=== PATIENT | male | born 1965 | race Caucasian/White ===

== ENCOUNTER 2020-10-16 11:51 | Outpatient (CLI) | payer MEDICARE, MEDICAID, SELFPAY ==
--- NOTE | 2020-10-16 12:12 | ECHO_ITS ---
Patient Info Name: Cornelio Pedroza Age: 55 years : 1965 Gender: Male Ht: 73 in Wt: 267 lbs BSA: 2.54 m2 HR: 81 bpm BP: 144 / 96 mmHg Technical Quality: Good Exam Date: 10/16/2020 12:25 PM Exam Location: [facility] Pulmonary Patient Status: Outpatient Admit Date: 10/16/2020 Staff Ordering Physician: Carlitos Joseph DO Group Home Supervisor: Bree Yates RDCS Attending Provider: Carlitos Joseph DO Referring Physician: Jake CALDERON; Exam Type: CA echo doppler color flow Study Info Indications - MALCOLM SANCHEZ Complete two-dimensional, color flow and Doppler transthoracic echocardiogram is performed. Summary 1. Complete two-dimensional, color flow and Doppler transthoracic echocardiogram is performed. 2. Left ventricular chamber dimension is normal. 3. Left ventricular systolic function is normal, estimated at 60-65%. 4. There is mildly increased left ventricular wall thickness. 5. The left ventricular diastolic function is normal. 6. E/e' 8 is minimally elevated. 7. Left atrial chamber dimension is mildly enlarged. 8. There is mild aortic valve sclerosis. 9. The mitral valve has mildly calcified annulus. 10. There is trace mitral valve regurgitation. 11. No pulmonary hypertension, estimated pulmonary arterial systolic pressure is 26 mmHg. Left Ventricle E/e' 8 is minimally elevated. Left ventricular chamber dimension is normal. Left ventricular systolic function is normal, estimated at 60-65%. There is mildly increased left ventricular wall thickness. The left ventricular diastolic function is normal. Right Ventricle Right ventricular chamber dimension is normal. Right ventricular systolic function is normal. Left Atria Left atrial chamber dimension is mildly enlarged. Right Atria Right atrial chamber dimension is normal. Aortic Valve The aortic valve is trileaflet. There is mild aortic valve sclerosis. There is no aortic valve stenosis. There is no aortic valve regurgitation. Pulmonic Valve There is no pulmonic regurgitation. Mitral Valve The mitral valve has mildly calcified annulus. There is no mitral valve stenosis. There is trace mitral valve regurgitation. Tricuspid Valve There is no tricuspid valve regurgitation. No pulmonary hypertension, estimated pulmonary arterial systolic pressure is 26 mmHg. Pericardium/Pleural There is no pericardial effusion. Inferior Vena Cava Normal inferior vena cava with >50% collapse upon inspiration consistent with normal right atrial pressure, 5 mmHg. Aorta The aortic root size at the sinus of Valsalva is normal. Left Ventricular Outflow Tract Name Value Normal LVOT 2D LVOT Diameter 2.1 cm LVOT Doppler LVOT Peak Gradient 5 mmHg LVOT Mean Gradient 3 mmHg LVOT VTI 25 cm LVOT VTI/AV VTI Ratio 0.7 LVOT Stroke Volume 85 ml LVOT CO 16.8 l/min LVOT CI 6.6 l/min/m2 Pulmonic Valve
== END 2020-10-16 11:52 | disposition home or self-care (01) ==
PROVIDERS: PCP Family Medicine; Visit Provider Internal Medicine Cardiovascular Disease
DX: R06.00 Dyspnea, unspecified (principal); I51.7 Cardiomegaly
CPT/HCPCS: 93306

== ENCOUNTER 2020-10-20 08:20 | Inpatient (IN) | payer MEDICARE, MEDICAID, SELFPAY ==
[2020-10-20] VITALS (21 sets, daily range): BP systolic 129–168; BP diastolic 68–103; PULSE 72–97; RESP 10–27; TEMP 36.3–36.6; O2SAT 94–100; BMI 33.5
--- NOTE | ~2020-10-20 | CT_ITS ---
EXAMINATION: CTA chest PE protocol DATE: 10/20/2020 09:44 INDICATION: Chest pain TECHNIQUE: Computed tomography angiography (CTA) of the chest was performed with 100 mL Omnipaque-350 intravenous contrast timed to evaluate the pulmonary arteries. Coronal maximum intensity projection 3D-reconstructions were created by the technologist. The dose-length product (DLP) was 790.86 mGy-cm. Automated exposure control and iterative reconstruction technique were employed. COMPARISON: None. FINDINGS: The pulmonary arteries are well-opacified. No pulmonary embolism is identified. There is mi ld atelectasis in the lower lobes. The heart size is normal. Calcified coronary artery atherosclerosi s is noted. There is no pleural effusion or pneumothorax. A 1.4 cm area of fluid attenuation in the p osterior subcutaneous tissues of the left upper back has the appearance of a sebaceous cyst. There is a small sliding hiatal hernia. A moderate volume of ascites is noted in the visualized upper abdomen . Severe lower cervical and thoracic spondylosis is noted. There are partially imaged changes of post erior thoracolumbar fusion. IMPRESSION: 1. No pulmonary embolism identified. 2. Mild dependent atelectasis. 3. Moderate volume of ascites in the visualized upper abdomen. Reviewed, dictated and finalized at location A. E GROWER
--- NOTE | ~2020-10-20 | XR_ITS ---
EXAMINATION: XR chest 2V DATE: 10/20/2020 08:58 INDICATION: Chest pain and shortness of breath TECHNIQUE: Frontal and lateral views of the chest are obtained COMPARISON: None available FINDINGS: There are minimal airspace opacities of the lung bases. There is no pleural effusion or pne umothorax. The cardiomediastinal silhouette is normal. There is severe thoracic spondylosis. There ar e partially imaged changes of posterior thoracolumbar fusion. IMPRESSION: 1. Minimal bibasilar airspace opacity, consistent with atelectasis versus pneumonia. Reviewed, dictated and finalized at location A. N [employer] IMPRESSION: 1. Minimal bibasilar airspace opacity, consistent with atelectasis versus pneum onia.
--- NOTE | ~2020-10-20 | US_ITS ---
EXAMINATION: US paracentesis abd w/image DATE: 10/20/2020 12:10 INDICATION: Ascites. TECHNIQUE: The procedure and its risks, benefits, and alternatives were discussed with the patient. P otential risks discussed included bleeding and infection. The skin was prepped and draped in sterile fashion. 1% lidocaine was used for local anesthesia. Under ultrasound guidance, a 5 Fr catheter with trochar was advanced into the ascites in the right lower quadrant. Fluid was aspirated. The catheter was removed, and a dressing was applied. There were no immediate complications. FINDINGS: Ultrasound images demonstrate ascites and the catheter within the fluid. Liver surface nodularity is seen, consistent with cirrhosis. IMPRESSION: 1. Successful ultrasound-guided paracentesis yielding 4575 mL of dark yellow fluid. 2. Cirrhosis of the liver. Reviewed, dictated and finalized at location A. RITY EXPERT IMPRESSION: 1. Successful ultrasound-guided paracentesis yielding 4575 mL of dark yellow f luid. 2. Cirrhosis of the liver.
--- NOTE | ~2020-10-20 | US_ITS ---
EXAMINATION: US abdomen complete DATE: 10/21/2020 08:58 INDICATION: Cirrhosis TECHNIQUE: Multiple grayscale and Doppler ultrasound images of the abdomen were obtained. COMPARISON: CT, 10/20/2020 FINDINGS: Bowel gas obscures visualization of the pancreas. The visualized portions of the pancreas a re unremarkable. The liver demonstrates a coarsened echotexture. There is nodularity of the liver rafael face. A small volume of ascites is present. Normal hepatopetal flow in the main portal vein. The gall bladder is normal with no wall thickening or stones. The normal common bile duct measures 6 mm. There was no sonographic Newell sign. The visualized portions of the aorta and inferior vena cava are norm al. The right kidney measures 10.5 x 5.9 x 5.6 cm. The left kidney measures 11.4 x 5.8 x 6.6 cm. The kidn eys demonstrate normal parenchymal echogenicity. There is no hydronephrosis. The mildly enlarged sple en measures 14.3 cm. IMPRESSION: 1. Cirrhosis with ascites and mild splenomegaly. Reviewed, dictated and finalized at location A. RUCTIONAL COORDINATOR
--- NOTE | 2020-10-20 08:25 | ECG_ITS ---
Measurements Intervals [place] Rate: 95 P: 39 VA: 157 QRS: -52 QRSD: 100 T: 9 QT: 344 QTc: 433 Interpretive Statements SINUS RHYTHM INCOMPLETE RIGHT BUNDLE BRANCH BLOCK LEFT ANTERIOR FASCICULAR BLOCK BORDERLINE T WAVE ABNORMALITY- INFERIOR LEADS ABNORMAL ECG Electronically Signed On 10-20-2020 8:37:59 [employer]LE E[employer] CONSULTANT by Carlitos Joseph D.O.
[2020-10-20] MEDS: ASPIRIN 81 MG CHEWABLE TABLET 324 MG PO (08:37)
[2020-10-20 08:46] LABS: Basophils Absolute Auto 0.1 K/mm3 (0.0-0.1); Basophils Percent Auto 1.3 % (0.2-1.2); Eosinophils Absolute Auto 0.2 K/mm3 (0-0.3); Hematocrit 40.7 % (42.0-52.0); Hemoglobin 14.3 g/dL (14.0-18.0); Immature Granulocyte Absolute 0.02 K/mm3 (0.00-0.031); Immature Granulocyte Percent A 0.3 % (0-0.5); Immature Platelet Fraction Pct 5.8 % (0.9-11.2); Lymphocytes Absolute Auto 2.25 K/mm3 (0.9-3.2); Lymphocytes Percent Auto 30.3 % (18.3-44.2); Mean Corpuscular HGB Conc 35.1 g/dl (32-36); Mean Corpuscular Volume 99.8 fl (80-100); Mean Platelet Volume 11.3 fl (7.4-10.4); Monocytes Absolute Auto 1.1 K/mm3 (0.1-0.6); Monocytes Percent Auto 14.4 % (2.6-8.5); Neutrophils Absolute Auto 3.8 K/mm3 (1.3-6.7); Neutrophils Percent Auto 50.7 % (45.5-73.1); Platelet Count Result 104 k/mm3 (150-375); Red Blood Count 4.08 M/mm3 (4.6-6.20); Red Cell Distribution Width 14.9 % (11.5-14.5); White Blood Count 7.4 K/mm3 (4.5-10.0)
--- NOTE | 2020-10-20 08:47 | ED.GENADULT ---
HPI - General Adult General Chief complaint: Chest Pain Stated complaint: SOB, CP Time Seen by Provider: 10/20/20 08:29 Source: patient History of Present Illness HPI narrative: Patient is a 55 y/o male complaining of sharp mid sternal chest pain since 2:00 AM this morning. He rates his pain as more than 10/10. There is no alleviating or exacerbating factor. He has some SOB and cough. He denies any fever. He has been having dark discoloration and swelling of of lower legs for over a month. He also gained 27 lbs over last month. Related Data Home Medications Medication Instructions Recorded Confirmed hydrocodone 5 mg-acetaminophen 325 1 tablet PO Q6H PRN 08/26/20 10/20/20 mg tablet lisinopril 20 mg tablet 20 mg PO DAILY 08/26/20 10/20/20 alprazolam [Xanax] 0.5 mg PO TID PRN 10/20/20 10/20/20 gabapentin 300 mg PO BID 10/20/20 10/20/20 methylprednisolone 4 mg PO DAILY 10/20/20 10/20/20 Allergies Allergy/AdvReac Type Severity Reaction Status Date / Time No Known Allergies Allergy Verified 10/13/20 09:07 Review of Systems Constitutional: Constitutional: Denies chills, Denies fever(s), Denies headache(s), Denies weakness and Reports other (weight gain) Eyes: Eyes: Denies blurry vision ENT: Denies headache(s) and Denies neck pain Cardiovascular: Cardiovascular: Reports chest pain and Reports dyspnea Respiratory: Respiratory: Denies cough and Reports dyspnea Gastrointestinal: Gastrointestinal: Denies abdominal pain, Denies diarrhea, Denies nausea and Denies vomiting Genitourinary: Genitourinary: Denies hematuria and Denies dysuria Musculoskeletal: Musculoskeletal: Denies back pain and Denies neck pain Comments: leg swelling Integumentary/Breasts: Skin/Breast: Reports change in pigmentation (dark discoloration of lower legs) Neurologic: Denies headache(s) and Denies weakness [facility] Past Medical History Medical History (Updated 10/20/20 @ 13:37 by Kelley Infante MD) Anxiety Arthritis Cirrhosis of liver Dyslipidemia Generalized headaches Hepatitis Hypertension Obstructive sleep apnea Surgical History Surgical History (Updated 10/20/20 @ 13:24 by Aracelis Hairston PA-C) History of back surgery History of cardiac catheterization History of epidermal inclusion cyst excision Right tragus. History of surgery on wrist ORIF wrist fracture with hardware. Family History Family History Father Hypertension Lung cancer Mother Hypertension Kidney disease Breast cancer Social History Social History (Updated 10/20/20 @ 13:24 by Aracelis Hairston PA-C) Social History: Surrogate decision maker: Charis Zepeda, significant other. Code status: Full code. Years smoked: 35 Smoking status: Current every day smoker Tobacco type: cigarettes Gender identity (if verbalized by the patient): Male Spiritual care concerns: No Exam Const: General: no acute distress and well developed Orientation/consciousness: oriented to person, oriented to place, oriented to time and patient oriented x3 HENMT: Head: normocephalic Ears: external ears normal General nose exam: Normal external nose present Eyes: General: appearance normal, both eyes and all related structures Conjunctivae: conjunctivae normal Neck: Neck: normal visual inspection and full ROM Chest: Chest palpation & inspection: normal inspection of the chest and no tenderness Resp: Effort & Inspection: normal respiratory effort Auscultation: clear to auscultation bilaterally Cardio: Rate: regular rate Rhythm: regular rhythm GI: Inspection: distended GI Palp: No abdominal tenderness and Yes Firmness to palpation present (GI) Skin: General skin exam: normal color, turgor normal and other (dark discoloration of lower legs consistent with venous stasis) Neuro: General: oriented to person, oriented to place, oriented to time and patient oriented x3 Cognition (Neuro):
[2020-10-20 08:54] LABS: INR 1.7; Prothrombin Time 20.7 Seconds (11.1-14.7)
[2020-10-20 08:55] LABS: Alanine Aminotransferase 46 U/L (4-50); Albumin Level 3.2 g/dL (3.5-5.1); Alkaline Phosphatase 234 U/L (38-126); Anion Gap 5 mmol/L (8-16); Aspartate Amino Transferase 162 U/L (17-59); Bilirubin,Total 8.7 mg/dL (0.2-1.3); Blood Urea Nitrogen 12 mg/dL (9-20); Calcium 8.3 mg/dL (8.4-10.2); Carbon Dioxide 27 mmol/L (22-30); Chloride 104 mmol/L (98-107); Estimated Glomerular Filt Rate > 60; Glucose 129 mg/dL (75-110); Partial Thromboplastin Time 31.9 SECONDS (22.3-36.8); Potassium 4.1 mmol/L (3.4-5.0); Sodium 136 mmol/L (137-145)
[2020-10-20 09:07] LABS: Troponin I < 0.012 ng/mL (0.000-0.034)
[2020-10-20 09:17] LABS: D Dimer 6.05 ug/mL (<0.48)
--- NOTE | 2020-10-20 10:42 | PC.NURSE ---
TED Sullivan out of room at this time after discussing ama with pt, pt still states that he is feeling better and wants to leave.
[2020-10-20 11:39] LABS: Hepatitis B Surface Antigen Negative (Negative)
[2020-10-20 11:43] LABS: Troponin I < 0.012 ng/mL (0.000-0.034)
[2020-10-20 11:45] LABS: HAV RESULT Negative (Negative); Hepatitis B Core IgM Result Negative (Negative)
[2020-10-20 11:58] LABS: Hepatitis C Virus Antibody Reactive (Negative)
--- NOTE | 2020-10-20 12:28 | ADMGEN ---
This patient, Cornelio Pedroza, was admitted to IMU Room 201-01 at 1210. Patient/family oriented to hospital policies and general routines including ID bracelet, bed and alarms, visiting hours, pain management, procedures, bathroom and other care routines, personal items, smoking policy, room service/diet, and visiting hours. Information on how to activate the Rapid Response Team has been discussed. Patient/Family are encouraged to report perceived risks to care and to ask questions if they do not understand what they are told or what they should do.
[2020-10-20 12:54] LABS: Appearance Peritoneal Fluid Clear (Clear); Color Peritoneal Fluid Yellow (Colorless); Nucleated Cells Peritoneal Flu 157 /uL (0-500); RBC Peritoneal Fluid 157 /uL (0-100000); Source Peritoneal Fluid Peritoneal Fluid
[2020-10-20 12:58] LABS: Lymphocytes Peritoneal Fluid 45 %; Macrophages Peritoneal Fluid 1 %; Mesothelial Cells Peritoneal Fluid 30 %; Monocytes Peritoneal Fluid 4 %; Neutrophils Peritoneal Fluid 20 % (0-25)
--- NOTE | 2020-10-20 13:30 | PM.IMHP ---
H&P: HPI History of Present Illness Date/Time: 10/20/20 13:30 Chief Complaint: Chest pain and shortness of breath. Narrative: This is a 55-year-old male smoker with daily alcohol use, recent hepatitis C diagnosis, hypertension, dyslipidemia, and sleep apnea who presented to the emergency department earlier today via EMS from home for evaluation of chest pain and shortness of breath. Over the past 1 month patient has gained approximately 27 pounds and reports progressive shortness of breath in the same amount of time. He decided to come in today for evaluation after he developed sudden onset of midsternal chest pain at approximately 02:00. The pain is described as sharp and shooting in nature and was self-limiting. In the emergency department he was found to have a large volume of ascites and is status post paracentesis which yielded nearly 5 liters of fluid. After the fluid resume moved he began to feel as though his work of breathing was much improved and he has not had any recurrence of the discomfort that he had this morning. He denies current chest pain, shortness of breath, orthopnea, PND, nausea, vomiting, and sweats. Review of Systems Review of Systems: Narrative: Twelve systems were reviewed with pertinent positives and negatives as per HPI. No fever, chills, or sweats. No recent cold or flu symptoms. He has had a mild cough, nonproductive. No exposure to those positive for COVID-19 to his knowledge. No history of congestive heart failure cirrhosis to his knowledge. Was recently diagnosed with hepatitis C as detailed above and was started on Lasix and methylprednisolone. No plans of yet been made with regards to treatment. He has had lower extremity edema over the last 1 month which he attributes to his weight gain. The patient began drinking about 4 cocktails a night since his father months ago. No history of alcohol withdrawal signs or symptoms. Except as documented, all other systems were reviewed and are negative. [facility] Past Medical History Medical History (Updated 10/20/20 @ 21:09 by Aracelis Hairston PA-C) Alcohol abuse Anxiety Arthritis Cirrhosis of liver Dyslipidemia Hepatitis C Hypertension Nicotine dependence Obstructive sleep apnea Surgical History Surgical History (Updated 10/20/20 @ 21:03 by Aracelis Hairston PA-C) History of cardiac catheterization History of epidermal inclusion cyst excision Right tragus. History of lumbar fusion History of surgery on wrist ORIF wrist fracture with hardware. Family History Family History Father Hypertension Lung cancer Mother Hypertension Kidney disease Breast cancer Social History Social History (Updated 10/20/20 @ 21:04 by Aracelis Hairston PA-C) Social History: Surrogate decision maker: Charis Heltonightly, significant other. Code status: Full code. Years smoked: 35 Smoking status: Current every day smoker Tobacco type: cigarettes Additional smoking assessment comments: Up to 1 pack of cigarettes per day, now smoking 4 to 5 a day. Alcohol intake: current Alcohol use details: Patient drinks for vodka cocktails a day. Substance use type: marijuana Other substance usage details: Occasional marijuana use. Additional living arrangements comments: The patient lives with his significant other, Charis. 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 Gender identity (if verbalized by the patient): Male Spiritual care concerns: No Meds Home Medications and Allergies Home Medications Medication Instructions Recorded Confirmed Type hydrocodone 5 mg-acetaminophen 325 1 tablet PO Q6H PRN 08/26/20 10/20/20 History mg tablet lisinopril 20 mg tablet 20 mg PO DAILY 08/26/20 10/20/20 History furosemide 40 mg tablet 40 mg PO QAM #30 tablet 09/22/20 10/20/20 Rx alprazolam [Xanax] 0.5 mg PO TID PRN 10/20/20 10/20/20 History shalini
[2020-10-20 15:14] LABS: Troponin I < 0.012 ng/mL (0.000-0.034)
--- NOTE | 2020-10-20 16:08 | WPDGICN ---
Assessment and Plan Assessment and plan (1) Cirrhosis of liver with ascites: Qualifiers: Hepatic cirrhosis type: unspecified hepatic cirrhosis Qualified Code(s): K74.60 - Unspecified cirrhosis of liver; R18.8 - Other ascites Code(s): K74.60 - Unspecified cirrhosis of liver; R18.8 - Other ascites Status: Acute Assessment and Plan: new diagnosis of cirrhosis with ascites however just recently was told that has hepatitis C also has been drinking alcohol which can be a contributing factor, he should no drink anymore complete work up for other chronic liver conditions will start on lasix and aldactone, also will need 2 g na diet with credit authorizer education, then follow-up either with me or probation counselor, will need ultrasound liver every 6 months for HCC surveillance (2) Hepatitis C: Qualifiers: Hepatic coma status: without hepatic coma Viral hepatitis chronicity: unspecified Qualified Code(s): B19.20 - Unspecified viral hepatitis C without hepatic coma Code(s): B19.20 - Unspecified viral hepatitis C without hepatic coma Status: Acute Assessment and Plan: we can talk as outpatient for possible treatments, hbv negative (3) Alcohol abuse: Code(s): F10.10 - Alcohol abuse, uncomplicated Status: Acute Assessment and Plan: he is willing to quit (4) Edema of both legs: Code(s): R60.0 - Localized edema Status: Acute (5) Tobacco abuse: Code(s): Z72.0 - Tobacco use Status: Acute Assessment and Plan: quit smoking (6) FOWLER (dyspnea on exertion): Code(s): R06.00 - Dyspnea, unspecified Status: Acute (7) Thrombocytopenia: Code(s): D69.6 - Thrombocytopenia, unspecified Status: Acute Assessment and Plan: from liver disease (8) Non-cardiac chest pain: Code(s): R07.89 - Other chest pain Status: Acute Assessment and Plan: will also do EGD tomorrow, assess if pud but also for varices, phg GI Consult Note Consult date/time: 10/20/20 16:08 Reason for consult: new diagnosis of cirrhosis with ascites and HCV HPI: Cornelio Pedroza is a 55 year old male with hypertension, dyslipidemia, who was told just couple weeks ago that had elevated liver enzymes with hepatitis C (he says that went to see a doctor in [facility] just few weeks ago because worsening leg edema and increased abdominal girth), blood work was obtained and he was told that has HCV. He also last few months has been drinking more than usual, 3-5 shots vodka every other day, considers to be alcoholic. Denies ivda, he has tattoos, says that only once snorted cocaine in high school. He came to hospital after new onset of epigastric/chest pain with worsening shortness of breath over last 1 week, also had 27 pound weight gain over the last month or so. ER evaluation showed elevated liver enzymes, bili 8, elevated D-dimer therefore CTA chest obtained and reviewed, No pulmonary embolism identified, mild dependent atelectasis, moderate volume of ascites in the visualized upper abdomen. He just underwent paracentesis ~ 4.5 L, no evidence of SBP. Had colonoscopy about 1 year ago, never had EGD. Review of Systems Constitutional: Constitutional: Denies chills Eyes: Eyes: Reports no additional eye complaints ENT: Reports system reviewed and no additional complaints, except as documented Cardiovascular: Cardiovascular: Reports chest pain Respiratory: Respiratory: Reports dyspnea on exertion Gastrointestinal: Gastrointestinal: Denies nausea Genitourinary: Genitourinary: Denies dysuria Musculoskeletal: Musculoskeletal: Denies neck pain Integumentary/Breasts: Skin/Breast: Denies dry skin Neurologic: Denies headache(s) Psychiatric: Psychiatric: Denies behavioral changes [facility] Past Medical History Medical History (Updated 10/20/20 @ 16:14 by Calvin Norton MD) Alcohol abuse Anxiety Arthritis Cirrhosis of liver Dysli
[2020-10-21] VITALS (13 sets, daily range): BP systolic 121–159; BP diastolic 61–101; PULSE 71–108; RESP 14–22; TEMP 36.1–36.7; O2SAT 97–100
[2020-10-21] MEDS: HYDROcodone/acetaminophen (*CRX) 5-325 MG TABLET 1 TAB PO ×3 (01:51→20:12)
[2020-10-21] MEDS: ALPRAZolam (*CRX) 0.5 MG TABLET PO ×2 (01:51→21:07)
[2020-10-21] MEDS: SPIRONOLACTONE 50 MG TABLET 100 MG PO (09:24)
[2020-10-21] MEDS: FUROSEMIDE 40 MG TABLET PO (09:25)
[2020-10-21] MEDS: LACTATED RINGERS 1,000 ML 150 ML IV CONT (10:06)
--- NOTE | 2020-10-21 10:39 | WPDANESEPPF ---
Anes - Initial Pre Proc Eval Procedure: Operation Date: 10/21/20 11:15 Proposed Procedures p Esophagogastroduodenoscopy - Calvin Norton MD Date/Time: 10/21/20 10:39 Surgeon: Artem Lovell MD Pre Op Diagnosis: chest pain/ascites Patient Data Age: 55 Gender: M Height: 6 ft 1 in Weight: 107.5 kg Last Vital Signs Temp 98.0 F 10/21/20 10:11 Pulse 80 10/21/20 10:11 Resp 18 10/21/20 10:11 BP 149/94 H 10/21/20 10:11 Pulse Ox 97 10/21/20 10:14 Allergies Allergy/AdvReac Type Severity Reaction Status Date / Time No Known Allergies Allergy Verified 10/21/20 10:06 Home Medications Medication Instructions Recorded Confirmed Type hydrocodone 5 mg-acetaminophen 325 1 tablet PO Q6H PRN 08/26/20 10/20/20 History mg tablet lisinopril 20 mg tablet 20 mg PO DAILY 08/26/20 10/20/20 History furosemide 40 mg tablet 40 mg PO QAM #30 tablet 09/22/20 10/20/20 Rx alprazolam [Xanax] 0.5 mg PO TID PRN 10/20/20 10/20/20 History gabapentin 300 mg PO BID 10/20/20 10/20/20 History methylprednisolone 4 mg PO DAILY 10/20/20 10/20/20 History Laboratory Tests 10/20/20 10/20/20 10/20/20 08:38 08:38 11:14 Ferritin Troponin I < 0.012 ng/mL ng/mL (0.000-0.034) Alpha-1-AT Phenotype Ceruloplasmin Peritoneal Source Peritoneal Color Peritoneal Appearance Peritoneal RBC Periton Nuc Cells Periton Neutrophils Periton Lymphocytes Peritoneal Monocytes Periton Mesothelial Periton Macrophages Peritoneal Tot Protein Peritoneal Albumin NIKA Screen Mitochondria M2 IgG Ab Hepatitis A IgM Ab Negative (Negative) Hep Bs Antigen Negative (Negative) Hep B Core IgM Ab Negative (Negative) Hepatitis C Ab Screen Reactive (Negative) HCV RNA (PCR) IUs/ml Pending HCV RNA PCR log IUs/ml Pending 10/20/20 10/20/20 10/20/20 11:39 11:39 14:44 Ferritin Troponin I < 0.012 ng/mL ng/mL (0.000-0.034) Alpha-1-AT Phenotype Ceruloplasmin Peritoneal Source Peritoneal fluid Peritoneal Color Yellow (Colorless) Peritoneal Appearance Clear (Clear) Peritoneal RBC 157 /uL /uL ([id number]) Periton Nuc Cells 157 /uL /uL (0-500) Periton Neutrophils 20 % % (0-25) Periton Lymphocytes 45 % % Peritoneal Monocytes 4 % % Periton Mesothelial 30 % % Periton Macrophages 1 % % Peritoneal Tot Protein Pending Peritoneal Albumin Pending NIKA Screen Mitochondria M2 IgG Ab Hepatitis A IgM Ab Hep Bs Antigen Hep B Core IgM Ab Hepatitis C Ab Screen HCV RNA (PCR) IUs/ml HCV RNA PCR log IUs/ml 10/21/20 10/21/20 10/21/20 04:12 04:12 04:12 Ferritin 539.00 ng/mL H ng/mL (11.1-264) Troponin I Alpha-1-AT Phenotype Pending Ceruloplasmin Pending Peritoneal Source Peritoneal Color Peritoneal Appearance Peritoneal RBC Periton Nuc Cells Periton Neutrophils Periton Lymphocytes Peritoneal Monocytes Periton Mesothelial Periton Macrophages Peritoneal Tot Protein Peritoneal Albumin NIKA Screen Pending Mitochondria M2 IgG Ab Hepatitis A IgM Ab Hep Bs Antigen Hep B Core IgM Ab Hepatitis C Ab Screen HCV RNA (PCR) IUs/ml HCV RNA PCR log IUs/ml 10/21/20 04:12 Ferritin Troponin I Alpha-1-AT
[2020-10-21] MEDS: BENZOCAINE (*SP) 60 ML SPRAY CAN (HURRICAINE) 1 SPRAY MUCOUS MEM (10:57)
--- NOTE | 2020-10-21 14:58 | PCNSR ---
On 10/21/20, the student, Edna Rush, provided care and completed [facility] documentation on this patient. I have reviewed the student's documentation and agree with the findings.
--- NOTE | 2020-10-21 15:08 | PM.IMPN ---
Progress Note: A&P Assessment and Plan (1) Chest pain: Code(s): R07.9 - Chest pain, unspecified Status: Acute (2) Cirrhosis of liver with ascites: Code(s): K74.60 - Unspecified cirrhosis of liver; R18.8 - Other ascites Status: Acute (3) Alcohol abuse: Code(s): F10.10 - Alcohol abuse, uncomplicated Status: Acute (4) Thrombocytopenia: Code(s): D69.6 - Thrombocytopenia, unspecified Status: Acute (5) Tobacco abuse: Code(s): Z72.0 - Tobacco use Status: Acute (6) Hypertension: Code(s): I10 - Essential (primary) hypertension Status: Inactive (7) Portal hypertensive gastropathy: Code(s): K76.6 - Portal hypertension; K31.89 - Other diseases of stomach and duodenum Status: Acute (8) Hepatitis C: Qualifiers: Hepatic coma status: without hepatic coma Viral hepatitis chronicity: unspecified Qualified Code(s): B19.20 - Unspecified viral hepatitis C without hepatic coma Code(s): B19.20 - Unspecified viral hepatitis C without hepatic coma Status: Acute (9) Cirrhosis of liver with ascites: Qualifiers: Hepatic cirrhosis type: unspecified hepatic cirrhosis Qualified Code(s): K74.60 - Unspecified cirrhosis of liver; R18.8 - Other ascites Code(s): K74.60 - Unspecified cirrhosis of liver; R18.8 - Other ascites Status: Acute (10) Edema of both legs: Code(s): R60.0 - Localized edema Status: Acute (11) Non-cardiac chest pain: Code(s): R07.89 - Other chest pain Status: Acute Additional Plan # Chest pain and shortness of breath: cardiac workup negative. associated weight gain. all related to volume overload likely from underlying liver disease. troponins negative. this has all resovled with treatment from diuresis. ECHO reently unremarkable with normal LV systolic and diastolic function, EF of 60-65% underwent EGD this am: reflux esgopahaitis grade III linear erosions/ulcerations, mid esophagus and dsital esophagus. not bleedig. No EV. moderate diffuse gastritis with moderate erytehmatous and portal hypertesnvie chagnes. no bleeding, moderate duodenitis. # Gastrits: ppi # Acute decompensated chronic liver disease: evaluation revealed ascites. s/p approximately 5l paracentesis in [facility] ED 10/20/20. on diuretics with lasix and spironolactone. underwent EGD for screening varices. # new ascites: s/p tap. on diuresis. 2 gm na diet. tap negative for SBP. # Newly diagnossed cirrhosis of liver: likely from chronic alcohol use and underlying hepatitis C. other workup for CLD noted to be ordered. GI on baord. # Chronic hepatitsi C; ab postiive. await type and HCV RNA level. neeeds workup and treatmetn as op basis. # Thrombocytopenia: likely from underlying liver diase # Alcohol abuse: counseled to stop drinking completely. # Dyslipdemia # hypertension # nicotine dependece # obstructive sleep apnea # DVT proph: # Full code . Subjective Date/time seen: 10/21/20 15:08 Interval history: went for the EGD this am, findings noted, portal hypertensive chagnes with reflux esophagitis. he feels lot better. his swelling has gotten better. his last drink 4 days ago and does nto plan to drink again. he has not seeked treatment for hepatitis C in the past. no fever, chills, sob, chest pain. Review of Systems Constitutional: Constitutional: Denies fatigue and Denies weakness Eyes: Eyes: Denies blurry vision and Denies photophobia ENT: Denies nasal congestion and Denies nasal discharge Cardiovascular: Cardiovascular: Denies chest pain and Denies palpitations Respiratory: Respiratory: Denies cough and Denies dyspnea Gastrointestinal: Gastrointestinal: Denies abdominal pain, Denies bloating, Denies hematochezia, Denies constipation, Denies nausea and Denies vomiting Genitourinary: Genitourinary: Denies dysuria and Denies urinary frequency Musculoskeletal: Musculoskeletal: Denies back pain and Denies
--- NOTE | 2020-10-21 19:30 | PC.NURSE ---
This patient, Cornelio Pedroza, was transferred to [[id number] ] on 10/21/20 at 1830. Personal belongings sent with patient. Report given to [ ]. Appropriate documentation sent with patient.
[2020-10-21] MEDS: PANTOPRAZOLE 40 MG TABLET PO (20:12)
[2020-10-22 06:00] VITALS: BP 125/79; PULSE 90; RESP 18; TEMP 36.6; O2SAT 98
[2020-10-22 06:13] LABS: Basophils Absolute Auto 0.1 K/mm3 (0.0-0.1); Basophils Percent Auto 1.1 % (0.2-1.2); Eosinophils Absolute Auto 0.3 K/mm3 (0-0.3); Eosinophils Percent Auto 2.8 % (0-4.4); Hemoglobin 14.3 g/dL (14.0-18.0); Immature Granulocyte Absolute 0.03 K/mm3 (0.00-0.031); Immature Granulocyte Percent A 0.3 % (0-0.5); Immature Platelet Fraction Pct 6.4 % (0.9-11.2); Lymphocytes Absolute Auto 3.26 K/mm3 (0.9-3.2); Lymphocytes Percent Auto 36.6 % (18.3-44.2); Mean Corpuscular HGB Conc 35.8 g/dl (32-36); Mean Corpuscular Hemoglobin 34.6 pg (26-34); Mean Corpuscular Volume 96.9 fl (80-100); Mean Platelet Volume 11.2 fl (7.4-10.4); Monocytes Absolute Auto 1.1 K/mm3 (0.1-0.6); Monocytes Percent Auto 12.4 % (2.6-8.5); Neutrophils Absolute Auto 4.2 K/mm3 (1.3-6.7); Neutrophils Percent Auto 46.8 % (45.5-73.1); Platelet Count Result 110 k/mm3 (150-375); Red Blood Count 4.13 M/mm3 (4.6-6.20); Red Cell Distribution Width 14.4 % (11.5-14.5); White Blood Count 8.9 K/mm3 (4.5-10.0)
[2020-10-22 06:39] LABS: Alanine Aminotransferase 42 U/L (4-50); Albumin Level 3.3 g/dL (3.5-5.1); Alkaline Phosphatase 221 U/L (38-126); Anion Gap 4 mmol/L (8-16); Aspartate Amino Transferase 131 U/L (17-59); Bilirubin,Total 9.5 mg/dL (0.2-1.3); Blood Urea Nitrogen 18 mg/dL (9-20); Calcium 8.2 mg/dL (8.4-10.2); Carbon Dioxide 26 mmol/L (22-30); Chloride 103 mmol/L (98-107); Estimated CRCL calculation 175 ml/min; Estimated Glomerular Filt Rate > 60; Glucose 98 mg/dL (75-110); Potassium 4.3 mmol/L (3.4-5.0); Sodium 133 mmol/L (137-145)
--- NOTE | 2020-10-22 07:48 | WPDANESPN ---
Anes - Prog Note Post-Op Date/Time: 10/22/20 07:48 Cardiovascular status: normal Respiratory status: normal Airway patency: baseline Mental status: baseline Post-Op hydration status: normal Vital Signs: Last Vital Signs Temp 97.9 F 10/22/20 06:00 Pulse 90 10/22/20 06:00 Resp 18 10/22/20 06:00 BP 125/79 10/22/20 06:00 Pulse Ox 98 10/22/20 06:00 Pain Score (VAS): 09/23 I/O: Intake & Output 10/21/20 10/21/20 10/22/20 15:59 23:59 07:59 Intake Total 400 1300 350 Output Total 670 Balance 400 630 350 Laboratory Tests 10/22/20 05:59 10/22/20 05:59 10/22/20 10/22/20 10/22/20 05:59 05:59 05:59 WBC 8.9 RBC 4.13 L Hgb 14.3 Hct 40.0 L MCV 96.9 MCH 34.6 H MCHC 35.8 RDW 14.4 Plt Count 110 L MPV 11.2 H Immature Gran % (Auto) 0.3 Neut % (Auto) 46.8 Lymph % (Auto) 36.6 [place] % (Auto) 12.4 H Eos % (Auto) 2.8 Baso % (Auto) 1.1 Lymph # (Auto) 3.26 H [place] # (Auto) 1.1 H Eos # (Auto) 0.3 Baso # (Auto) 0.1 Abs Immat Gran (auto) 0.03 Absolute Neuts (auto) 4.2 Absolute Nucleated RBC 0.0 Nucleated RBC % 0.0 % Immature Plt Fraction 6.4 Sodium 133 L Potassium 4.3 Chloride 103 Carbon Dioxide 26 Anion Gap 4 L BUN 18 Creatinine 0.50 L Estim Creat Clear Calc 175 Estimated GFR > 60 Glucose 98 Calcium 8.2 L Total Bilirubin 9.5 H AST 131 H ALT 42 Alkaline Phosphatase 221 H Total Protein 9.0 H Albumin 3.3 L HCV RNA (PCR) IUs/ml Pending HCV RNA PCR log IUs/ml Pending Hep C Genotype (PCR) Pending Microbiology 10/20/20 11:39 Ascites Fluid Anaerobic Culture - Preliminary 10/20/20 11:39 Ascites Fluid Aerobic Culture - Preliminary Post-procedural complaints: none Patient Feedback: Patient satisfied with anesthetic care.
[2020-10-22] MEDS: SPIRONOLACTONE 50 MG TABLET 100 MG PO (08:37)
[2020-10-22] MEDS: FUROSEMIDE 40 MG TABLET PO (08:37)
[2020-10-22] MEDS: PANTOPRAZOLE 40 MG TABLET PO ×2 (08:37→20:06)
--- NOTE | 2020-10-22 11:33 | PM.IMPN ---
Progress Note: A&P Assessment and Plan (1) Chest pain: Code(s): R07.9 - Chest pain, unspecified Status: Acute Assessment and Plan: No chest pain now. Patient has paracentesis done yesterday. Feeding more comfortable now. (2) Cirrhosis of liver with ascites: Code(s): K74.60 - Unspecified cirrhosis of liver; R18.8 - Other ascites Status: Acute Assessment and Plan: Will continue current treatment. Had paracentesis done yesterday. (3) Alcohol abuse: Code(s): F10.10 - Alcohol abuse, uncomplicated Status: Acute Assessment and Plan: Not in any withdrawal, will continue to monitor. (4) Thrombocytopenia: Code(s): D69.6 - Thrombocytopenia, unspecified Status: Acute Assessment and Plan: Stable (5) Tobacco abuse: Code(s): Z72.0 - Tobacco use Status: Acute Assessment and Plan: Counseling given (6) Hypertension: Code(s): I10 - Essential (primary) hypertension Status: Inactive Assessment and Plan: Stable (7) Portal hypertensive gastropathy: Code(s): K76.6 - Portal hypertension; K31.89 - Other diseases of stomach and duodenum Status: Acute Assessment and Plan: Stable at present (8) Hepatitis C: Qualifiers: Hepatic coma status: without hepatic coma Viral hepatitis chronicity: unspecified Qualified Code(s): B19.20 - Unspecified viral hepatitis C without hepatic coma Code(s): B19.20 - Unspecified viral hepatitis C without hepatic coma Status: Acute Assessment and Plan: GI following (9) Edema of both legs: Code(s): R60.0 - Localized edema Status: Acute Assessment and Plan: Much better now. (10) Non-cardiac chest pain: Code(s): R07.89 - Other chest pain Status: Acute Assessment and Plan: Asymptomatic now. Additional Plan # Chest pain and shortness of breath: cardiac workup negative. associated weight gain. all related to volume overload likely from underlying liver disease. troponins negative. this has all resovled with treatment from diuresis. ECHO reently unremarkable with normal LV systolic and diastolic function, EF of 60-65% underwent EGD this am: reflux esgopahaitis grade III linear erosions/ulcerations, mid esophagus and dsital esophagus. not bleedig. No EV. moderate diffuse gastritis with moderate erytehmatous and portal hypertesnvie chagnes. no bleeding, moderate duodenitis. # Gastrits: ppi # Acute decompensated chronic liver disease: evaluation revealed ascites. s/p approximately 5l paracentesis in [facility] ED 10/20/20. on diuretics with lasix and spironolactone. underwent EGD for screening varices. # new ascites: s/p tap. on diuresis. 2 gm na diet. tap negative for SBP. # Newly diagnossed cirrhosis of liver: likely from chronic alcohol use and underlying hepatitis C. other workup for CLD noted to be ordered. GI on baord. # Chronic hepatitsi C; ab postiive. await type and HCV RNA level. neeeds workup and treatmetn as op basis. # Thrombocytopenia: likely from underlying liver diase # Alcohol abuse: counseled to stop drinking completely. # Dyslipdemia # hypertension # nicotine dependece # obstructive sleep apnea # DVT proph: # Full code . Will monitor electrolytes and continue current treatment. Subjective Date/time seen: 10/22/20 11:33 Interval history: Patient was seen during the morning rounds today. Feeling slightly better. No shortness of breath or chest pain. Abdominal discomfort decrease. Went for the EGD yesterday, findings noted, portal hypertensive chagnes with reflux esophagitis. he feels lot better. his swelling has gotten better. his last drink 4 days ago and does nto plan to drink again. he has not seeked treatment for hepatitis C in the past. no fever, chills, sob, chest pain. Review of Systems Constitutional: Constitutional: Denies fatigue and Denies weakness Eyes: Eyes: Denies blurry vision and Den
[2020-10-22 14:00] VITALS: BP 110/79; PULSE 84; RESP 18; TEMP 36.7; O2SAT 95
--- NOTE | 2020-10-22 15:53 | WPDGIPROGNO ---
Progress Note: A&P Assessment and Plan (1) Cirrhosis of liver with ascites: Qualifiers: Hepatic cirrhosis type: unspecified hepatic cirrhosis Qualified Code(s): K74.60 - Unspecified cirrhosis of liver; R18.8 - Other ascites Code(s): K74.60 - Unspecified cirrhosis of liver; R18.8 - Other ascites Status: Acute Assessment and Plan: 2 na diet, no SBP continue with lasix and aldactone, stable renal function he can go home with follow-up office in 4-6 weeks, we will have HCV RNA and genotype result and then can decide on treatment option also because decompensated cirrhosis, we will eventually like to refer to liver transplant center at [facility] (2) Erosive esophagitis: Code(s): K22.10 - Ulcer of esophagus without bleeding Status: Acute Assessment and Plan: path report no h pylori (reviewed) and egd findings reviewed with patient and on ppi bid avoid nsaid's (3) Chronic hepatitis C: Code(s): B18.2 - Chronic viral hepatitis C Status: Acute Assessment and Plan: pending rna and genotype treatment as outpatient (4) Portal hypertensive gastropathy: Code(s): K76.6 - Portal hypertension; K31.89 - Other diseases of stomach and duodenum Status: Acute (5) Thrombocytopenia: Code(s): D69.6 - Thrombocytopenia, unspecified Status: Acute Assessment and Plan: from alcohol use (6) Alcohol abuse: Code(s): F10.10 - Alcohol abuse, uncomplicated Status: Acute Subjective Date/time seen: 10/22/20 15:53 Interval history: still with some abdominal pain but overall better Review of Systems Review of Systems: All systems reviewed & are unremarkable except as noted in HPI and below Exam Const: General: comfortable and no acute distress HENMT: General nose exam: Normal nares present Eyes: General: appearance normal, both eyes and all related structures Neck: Neck: supple Resp: Auscultation: clear to auscultation bilaterally Cardio: Rate: regular rate GI: GI Palp: Yes Soft to palpation and No Tenderness to palpation present (GI) Auscultation: normal bowel sounds Other: less fluid wave Skin: General skin exam: jaundice Neuro: Speech: normal speech Motor exam (neuro): Normal motor muscle tone present throughout Extrem: General: normal to inspection Psych: Mental Status: mental status grossly normal Objective Data Vital Signs Vital Signs: Vital Signs - 24 hr 10/21/20 16:00 10/21/20 21:58 10/22/20 06:00 Temperature 97.3 F L 97.2 F L 97.9 F Pulse Rate 82 71 90 Respiratory Rate 20 16 18 Blood Pressure 121/85 121/61 125/79 Pulse Oximetry 98 100 98 10/22/20 14:00 Temperature 98.1 F Pulse Rate 84 Respiratory Rate 18 Blood Pressure 110/79 Pulse Oximetry 95 Intake/Output Intake/Output: Intake & Output 10/19/20 10/20/20 10/21/20 10/22/20 23:59 23:59 23:59 23:59 Intake Total 970 1700 830 Output Total 5400 720 Balance -4430 980 830 Meds/Results Medications: Active Medications Generic Name Dose Route Start Last Admin Trade Name Freq PRN Reason Stop Dose Admin Hydrocodone Bitart/Acetaminophen 1 tab 10/21/20 01:37 10/21/20 20:12 Hydrocodone/Acetaminophen (*Crx) 5-325 Mg Tablet PO 1 tab Q6H PRN Administration Pain Alprazolam 0.5 mg 10/21/20 01:37 10/21/20 21:07 Alprazolam (*Crx) 0.5 Mg Tablet PO 0.5 mg TID PRN Administration Anxiety Furosemide 40 mg 10/21/20 09:00 10/22/20 08:37 Furosemide 40 Mg Tablet PO 40 mg DAILY JOHNNIE Administration Pantoprazole Sodium 40 mg 10/21/20 21:00 10/22/20 08:37 Pantoprazole 40 Mg Tablet PO 40 mg Q12HR JOHNNIE Administration Spironolactone 100 mg 10/21/20 09:00 10/22/20 08:37 Spironolactone 50 Mg Tablet PO 100 mg QAM JOHNNIE Administration Radiology Results: ITS Impressions Chest X-Ray 10/20/20 09:02 IMPRESSION: 1. Minimal bibasilar airspace opacity, consistent with atelectasis versus pneum
[2020-10-22 16:45] LABS: Hepatitis C RNA, Quant PCR 149000 IU/mL
[2020-10-22 20:39] LABS: Total Protein Peritoneal Fluid <3.0 g/dL
[2020-10-23] MEDS: HYDROcodone/acetaminophen (*CRX) 5-325 MG TABLET 1 TAB PO (01:04)
[2020-10-23 06:00] VITALS: BP 134/85; PULSE 66; RESP 16; TEMP 36.9; O2SAT 98
[2020-10-23 06:25] LABS: Alanine Aminotransferase 40 U/L (4-50); Alkaline Phosphatase 206 U/L (38-126); Anion Gap 3 mmol/L (8-16); Aspartate Amino Transferase 126 U/L (17-59); Blood Urea Nitrogen 20 mg/dL (9-20); Carbon Dioxide 28 mmol/L (22-30); Chloride 105 mmol/L (98-107); Estimated CRCL calculation 148 ml/min; Estimated Glomerular Filt Rate > 60; Glucose 110 mg/dL (75-110); Potassium 4.6 mmol/L (3.4-5.0); Sodium 136 mmol/L (137-145)
[2020-10-23] MEDS: PANTOPRAZOLE 40 MG TABLET PO (07:56)
[2020-10-23] MEDS: SPIRONOLACTONE 50 MG TABLET 100 MG PO (07:56)
[2020-10-23] MEDS: FUROSEMIDE 40 MG TABLET PO (07:56)
--- NOTE | 2020-10-23 09:50 | PM.DS ---
DS: Admitting Diagnosis Admitting Diagnosis Admitting Diagnosis: 1. Cirrhosis of the liver with ascites 2. Alcohol dependence 3. History of hypertension 4. Is typical chest pain DS: Discharge Diagnosis Discharge Diagnosis (1) Chest pain: Code(s): R07.9 - Chest pain, unspecified Status: Acute Assessment and Plan: No chest pain now. Patient has paracentesis done yesterday. Feeding more comfortable now. (2) Cirrhosis of liver with ascites: Code(s): K74.60 - Unspecified cirrhosis of liver; R18.8 - Other ascites Status: Acute Assessment and Plan: Will continue current treatment. Had paracentesis done yesterday. (3) Alcohol abuse: Code(s): F10.10 - Alcohol abuse, uncomplicated Status: Acute Assessment and Plan: Not in any withdrawal, will continue to monitor. (4) Thrombocytopenia: Code(s): D69.6 - Thrombocytopenia, unspecified Status: Acute Assessment and Plan: Stable (5) Tobacco abuse: Code(s): Z72.0 - Tobacco use Status: Acute Assessment and Plan: Counseling given (6) Hypertension: Code(s): I10 - Essential (primary) hypertension Status: Inactive Assessment and Plan: Stable (7) Portal hypertensive gastropathy: Code(s): K76.6 - Portal hypertension; K31.89 - Other diseases of stomach and duodenum Status: Acute Assessment and Plan: Stable at present (8) Hepatitis C: Qualifiers: Hepatic coma status: without hepatic coma Viral hepatitis chronicity: unspecified Qualified Code(s): B19.20 - Unspecified viral hepatitis C without hepatic coma Code(s): B19.20 - Unspecified viral hepatitis C without hepatic coma Status: Acute Assessment and Plan: GI following (9) Edema of both legs: Code(s): R60.0 - Localized edema Status: Acute Assessment and Plan: Much better now. (10) Non-cardiac chest pain: Code(s): R07.89 - Other chest pain Status: Acute Assessment and Plan: Asymptomatic now. DS: Summary Hospital Course Hospital Course: 55 years old male with history of chronic alcohol abuse was admitted with complaint of having ascites and abdominal distention plus atypical chest pain. Gastroenterology service was consulted. Abdominal tap was done. Culture of the tap was negative. Patient was given diuretic treatment. Today patient is feeling better so patient was discharged home in stable condition alcohol counseling smoking counseling was provided. Patient is also referred to outpatient alcohol rehab. Time spent discussing smoking cessation with patient: 3 to 10 minutes Status at Discharge Cognitive/behavioral status at discharge: Stable Functional status at discharge: independent ambulation Time Spent with Patient Time attestation: Total time spent providing and/or coordinating discharge services: Time spent: Less than 30 minutes Exam Narrative: Exam Narrative: General: Well-developed male lying on his left side in bed in no acute distress. HEENT: PERRL, EOMI. Sclerae anicteric. Mild jaundice. Oral mucosa moist. Neck: Supple. No JVD. Respiratory: Lungs are clear to auscultation bilaterally. Cardiovascular: Regular rate and rhythm with S1-S2. Gastrointestinal: Abdomen is soft and nondistended with positive bowel sounds.No voluntary guarding or rebound tenderness. Skin: Warm and dry. Hyperpigmentation of the lower legs bilaterally. Extremities: No cyanosis or clubbing. no edema. Neurological: Alert. Cranial nerves 2-12 are grossly intact. No gross focal deficits to casual conversation. Psychiatric: Pleasant and cooperative with normal mood and affect. Judgment and insight intact. Eyes: Direct Ophthalmoscopy: No photophobia Neuro: Speech: No Abnormal speech present DS: Data Data Completed and Pending Completed studies during hospitalization: Pending at discharge 10/20/20 11:19 Cytology [PTH] Ro
[2020-10-25 16:38] LABS: Hepatitis C Viral RNA PCR 6910 IU/mL
[2020-10-26 13:25] LABS: Ceruloplasmin 34 mg/dL (18-36)
[2020-10-27 12:43] LABS: Albumin Peritoneal Fluid 0.4 g/dL
[2020-10-29 12:22] LABS: HCV Genotype, LiPA 1a
[2020-10-31 10:18] LABS: Mitochondrial (M2) Ab (IgG) <=20.0 U (<=20.0)
== END 2020-10-23 10:46 | disposition home or self-care (01) | DRG 433 ==
LOC: ANHED 08:31 → ANHIMU 11:31 → ANH3MEDSUR 10-21 18:53
PROVIDERS: Internal Medicine; Internal Medicine Gastroenterology; Admitting Provider Internal Medicine; Emergency Provider Emergency Medicine; PCP Family Medicine; Visit Provider Internal Medicine
PROC: 0DJ08ZZ Inspection of Upper Intestinal Tract, Via Natural or Artificial Opening Endoscopic (ICD-10-PCS; CPT 43235; principal; 2020-10-21 11:15)
DX: K70.31 Alcoholic cirrhosis of liver with ascites (principal); K76.6 Portal hypertension; K21.00 Gastro-esophageal reflux disease with esophagitis, without bleeding; K29.70 Gastritis, unspecified, without bleeding; K29.80 Duodenitis without bleeding; K31.89 Other diseases of stomach and duodenum; B19.20 Unspecified viral hepatitis C without hepatic coma; R07.89 Other chest pain; I10 Essential (primary) hypertension; R60.0 Localized edema; D69.59 Other secondary thrombocytopenia; M19.90 Unspecified osteoarthritis, unspecified site; E78.5 Hyperlipidemia, unspecified; F10.20 Alcohol dependence, uncomplicated; G47.33 Obstructive sleep apnea (adult) (pediatric); F17.210 Nicotine dependence, cigarettes, uncomplicated; Z98.1 Arthrodesis status
CPT/HCPCS: 36415; 49083; 71046; 71275; 76700; 80053; 80074; 82042; 82104; 82390; 82728; 83520; 84157; 84484; 85025; 85055; 85380; 85610; 85730; 86038; 87070; 87075; 87081; 87205; 87522; 88104; 88108; 88305; 89051; 93005; 96360; 99285; A9270; G0378; J2704; J7120; Q9967

== ENCOUNTER 2020-12-08 09:55 | Emergency (ER) | payer MEDICARE, MEDICAID, SELFPAY ==
--- NOTE | ~2020-12-08 | US_ITS ---
EXAMINATION: US paracentesis abd w/image DATE: 12/08/2020 14:04 INDICATION: Ascites. TECHNIQUE: The procedure and its risks, benefits, and alternatives were discussed with the patient. P otential risks discussed included bleeding and infection. The skin was prepped and draped in sterile fashion. 1% lidocaine was used for local anesthesia. Under ultrasound guidance, a 5 Fr catheter with trochar was advanced into the ascites in the right lower quadrant. Fluid was aspirated. The catheter was removed, and a dressing was applied. There were no immediate complications. FINDINGS: Ultrasound images demonstrate ascites and the catheter within the fluid. IMPRESSION: 1. Successful ultrasound-guided paracentesis yielding 2400 mL of clear, yellow fluid. Reviewed, dictated and finalized at location A.
[2020-12-08 10:03] VITALS: BP 133/82; PULSE 88; RESP 18; TEMP 36.1; O2SAT 98
[2020-12-08 10:17] LABS: Basophils Absolute Auto 0.1 K/mm3 (0.0-0.1); Basophils Percent Auto 1.5 % (0.2-1.2); Eosinophils Absolute Auto 0.3 K/mm3 (0-0.3); Eosinophils Percent Auto 4.8 % (0-4.4); Hematocrit 38.7 % (42.0-52.0); Hemoglobin 13.4 g/dL (14.0-18.0); Immature Granulocyte Absolute 0.01 K/mm3 (0.00-0.031); Immature Granulocyte Percent A 0.2 % (0-0.5); Lymphocytes Absolute Auto 2.36 K/mm3 (0.9-3.2); Lymphocytes Percent Auto 43.2 % (18.3-44.2); Mean Corpuscular HGB Conc 34.6 g/dl (32-36); Mean Corpuscular Hemoglobin 34.5 pg (26-34); Mean Corpuscular Volume 99.7 fl (80-100); Mean Platelet Volume 9.9 fl (7.4-10.4); Monocytes Absolute Auto 0.7 K/mm3 (0.1-0.6); Monocytes Percent Auto 11.9 % (2.6-8.5); Neutrophils Absolute Auto 2.1 K/mm3 (1.3-6.7); Neutrophils Percent Auto 38.4 % (45.5-73.1); Platelet Count Result 83 k/mm3 (150-375); Red Blood Count 3.88 M/mm3 (4.6-6.20); White Blood Count 5.5 K/mm3 (4.5-10.0)
[2020-12-08 10:28] LABS: Alanine Aminotransferase 21 U/L (4-50); Albumin Level 3.1 g/dL (3.5-5.1); Alkaline Phosphatase 183 U/L (38-126); Anion Gap 6 mmol/L (8-16); Aspartate Amino Transferase 59 U/L (17-59); Bilirubin,Total 1.8 mg/dL (0.2-1.3); Blood Urea Nitrogen 9 mg/dL (9-20); Carbon Dioxide 24 mmol/L (22-30); Chloride 114 mmol/L (98-107); Estimated CRCL calculation 140 ml/min; Estimated Glomerular Filt Rate > 60; Glucose 122 mg/dL (75-110); Lipase 50 U/L (23-300); Potassium 3.9 mmol/L (3.4-5.0); Sodium 144 mmol/L (137-145)
--- NOTE | 2020-12-08 11:22 | ED.ABDPAIN ---
HPI - Abdominal Pain General Chief Complaint: Abdominal Pain Stated Complaint: abdominal distention Time Seen by Provider: 12/08/20 11:12 History of Present Illness HPI narrative: 55 yo male w/ h/o cirrhosis due to hepatitis c presents to the ED complaining of ascites. He reports that over the past several days his abdomen has rapidly become distended. It is moderately painful. He is not able to eat due very rapid satiey and constant feeling of pressure. He has dyspnea on exertion. He contacted his liver doctor to schedule paracentesis, but they could not get him on the schedule until next month. No fever, vomiting, CP. Related Data Home Medications Medication Instructions Recorded Confirmed lisinopril 20 mg tablet 20 mg PO DAILY 08/26/20 12/04/20 alprazolam [Xanax] 0.5 mg PO TID PRN 10/20/20 12/04/20 gabapentin 300 mg PO BID 10/20/20 12/04/20 methylprednisolone 4 mg PO DAILY 10/20/20 12/04/20 Allergies Allergy/AdvReac Type Severity Reaction Status Date / Time No Known Allergies Allergy Verified 12/04/20 13:25 Review of Systems Review of Systems: All systems reviewed & are unremarkable except as noted in HPI and below Constitutional: Constitutional: Denies chills, Denies fever(s) and Denies weakness Eyes: Eyes: Reports no additional eye complaints ENT: Reports system reviewed and no additional complaints, except as documented Cardiovascular: Cardiovascular: Denies chest pain Respiratory: Respiratory: Reports dyspnea on exertion Gastrointestinal: Gastrointestinal: Reports abdominal pain and Denies vomiting Genitourinary: Genitourinary: Reports no additional male genitourinary complaints Neurologic: Reports system reviewed and no additional complaints, except as documented [facility] Past Medical History Medical History Alcohol abuse Anxiety Arthritis Chronic hepatitis C Cirrhosis of liver Dyslipidemia Erosive esophagitis Hepatitis C Hypertension Nicotine dependence Obstructive sleep apnea Surgical History Surgical History History of cardiac catheterization History of epidermal inclusion cyst excision Right tragus. History of lumbar fusion History of surgery on wrist ORIF wrist fracture with hardware. Family History Family History Father Hypertension Lung cancer Mother Hypertension Kidney disease Breast cancer Social History Social History Social History: Surrogate decision maker: Charis Zepeda, significant other. Code status: Full code. Years smoked: 35 Smoking status: Current every day smoker Tobacco type: cigarettes Additional smoking assessment comments: Up to 1 pack of cigarettes per day, now smoking 4 to 5 a day. Alcohol intake: current Substance use type: marijuana Other substance usage details: Occasional marijuana use. Additional living arrangements comments: The patient lives with his significant other, Charis. 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 Gender identity (if verbalized by the patient): Male Spiritual care concerns: No Exam Const: General: no acute distress, alert and ill appearing Orientation/consciousness: patient oriented x3 HENMT: Head: normal to inspection Neck: Neck: normal visual inspection Chest: Chest palpation & inspection: normal inspection of the chest Resp: Effort & Inspection: normal respiratory effort Auscultation: clear to auscultation bilaterally Cardio: Rate: regular rate Rhythm: regular rhythm GI: Inspection: distended GI Palp: Yes Soft to palpation and No Tenderness to palpation present (GI) Percussion: Yes Fluid wave present Skin: General skin exam: normal color Neuro: General: patient oriented x3, moves all extremities, no focal motor deficits
[2020-12-08 13:02] LABS: Ammonia 47 umol/L (9-30)
[2020-12-08 13:04] LABS: Add Urine Microscopic? YES; Appearance Urine Cloudy (Clear); Bacteria Urine Trace /hpf; Bilirubin Urine Negative (Negative); Blood Urine 1+ (Negative); Calcium Oxalate Crystals Urine Present /hpf; Color Urine Amber (Yellow); Glucose Urine UA Negative (Negative); Ketones Urine Negative (Negative); Leukocyte Esterase Ur Negative LEU/UL (Negative); Mucus Urine Heavy /lpf; Nitrate Urine Negative (Negative); Protein Urine 1+ mg/dL (Negative); Specific Grav Ur 1.029 (1.001-1.035); Squamous Epithelial Cell Urine Rare /hpf (Few); WBC Urine 0-3 /hpf
[2020-12-08 13:08] LABS: INR 1.7; Prothrombin Time 20.5 Seconds (11.1-14.7)
[2020-12-08 13:09] LABS: Partial Thromboplastin Time 32.2 SECONDS (22.3-36.8)
[2020-12-08 14:29] VITALS: BP 135/100; PULSE 74; RESP 16; O2SAT 94
== END 2020-12-08 14:29 | disposition home or self-care (01) ==
PROVIDERS: Emergency Medicine; Emergency Provider Emergency Medicine; PCP Family Medicine
DX: R18.8 Other ascites (principal); B18.2 Chronic viral hepatitis C; K74.60 Unspecified cirrhosis of liver; E78.5 Hyperlipidemia, unspecified; I10 Essential (primary) hypertension; G47.33 Obstructive sleep apnea (adult) (pediatric); K22.10 Ulcer of esophagus without bleeding; F17.210 Nicotine dependence, cigarettes, uncomplicated; Z98.1 Arthrodesis status
CPT/HCPCS: 36415; 49083; 80053; 81001; 82140; 83690; 85025; 85610; 85730; 99283

== ENCOUNTER 2020-12-30 08:32 | Observation (INO) | payer MEDICARE, MEDICAID, SELFPAY ==
[2020-12-30] VITALS (14 sets, daily range): BP systolic 128–155; BP diastolic 90–98; PULSE 58–79; RESP 11–20; TEMP 36.2–36.7; O2SAT 94–99; BMI 33.5
--- NOTE | ~2020-12-30 | US_ITS ---
EXAMINATION: US abdomen limited DATE: 12/30/2020 17:01 INDICATION: Ascites and cirrhosis TECHNIQUE: Multiple grayscale and Doppler ultrasound images of the abdomen were obtained. COMPARISON: 12/08/2020 FINDINGS: Patient presents for paracentesis. With preliminary scanning, a small amount of right upper quadrant ascites is seen. No significant ascites is identified in the lower quadrants or the left up per quadrant. As a result, paracentesis was canceled. There is nodularity of the liver surface, consi stent with cirrhosis. IMPRESSION: 1. Cirrhosis with small volume of right upper quadrant ascites. Reviewed, dictated and finalized at location A.
--- NOTE | ~2020-12-30 | XR_ITS ---
EXAMINATION: XR chest 1V portable EXAM DATE: 12/30/2020 09:40 INDICATION: Shortness of breath . Bilateral leg swelling. Abdominal distention. TECHNIQUE: Portable AP frontal chest x-ray was obtained. Comparison is made to prior examination from 10/20/2020. FINDINGS: There is diffuse hazy opacification over the right lower lung zone, appearance most consist ent with moderate layering pleural effusion, and adjacent segmental atelectasis. Pneumonia not exclud able. The left lung is clear. No pneumothorax. The cardiomediastinal silhouette is prominent but magn ified on this AP technique. Thoracolumbar Egan rods. There are bony degenerative changes. IMPRESSION: Interval development of diffuse hazy right basilar opacification most likely moderate ple ural effusion and adjacent atelectasis but please clinically correlate. Reviewed, dictated and finalized at location A. IMPRESSION: Interval development of diffuse hazy right basilar opacification mo st likely moderate pleural effusion and adjacent atelectasis but please clinica lly correlate.
--- NOTE | 2020-12-30 08:55 | ED.GENADULT ---
HPI - General Adult General Chief complaint: Unspecified Stated complaint: increased swelling Time Seen by Provider: 12/30/20 08:55 Source: patient and RN notes reviewed Mode of arrival: ambulatory Limitations: no limitations History of Present Illness HPI narrative: Patient is 55 years old white male presents with increased abdominal distention and edema lower extremity with increased shortness of breath over the last few days. History of liver cirrhosis secondary to hep C, stage IV. Patient drinks occasionally. Patient denies any fever, chills, nausea, vomiting, chest pain or back pain. Last hospitalization for similar symptoms 1 month ago, last abdominal centesis 3 months ago, patient have a health communications specialist at [facility] and last month was seen by our health communications specialist, Dr. Roa. Related Data Home Medications Medication Instructions Recorded Confirmed lisinopril 20 mg tablet 20 mg PO DAILY 08/26/20 12/04/20 alprazolam [Xanax] 0.5 mg PO TID PRN 10/20/20 12/04/20 gabapentin 300 mg PO BID 10/20/20 12/04/20 methylprednisolone 4 mg PO DAILY 10/20/20 12/04/20 Allergies Allergy/AdvReac Type Severity Reaction Status Date / Time No Known Allergies Allergy Verified 12/04/20 13:25 Review of Systems Review of Systems: Narrative: CONSTITUTIONAL: Denies fever, chills, or sweats. EYES: Denies visual changes, redness, or discharge. ENT: Denies rhinorrhea, congestion, sore throat, or otalgia. CARDIOVASCULAR: Denies chest pain, palpitations, or edema. RESPIRATORY: Denies cough or dyspnea. GASTROINTESTINAL: Denies abdominal pain, nausea, vomiting, or diarrhea. GENITOURINARY: Denies dysuria or hematuria. SKIN: Denies rash or itching. MUSCULOSKELETAL: Denies back pain, joint pain, or myalgia. NEUROLOGIC: Denies headache, numbness, or weakness. PSYCHIATRIC: Denies anxiety or depression. [facility] Past Medical History Medical History Alcohol abuse Anxiety Arthritis Chronic hepatitis C Cirrhosis of liver Dyslipidemia Erosive esophagitis Hepatitis C Hypertension Nicotine dependence Obstructive sleep apnea Surgical History Surgical History History of cardiac catheterization History of epidermal inclusion cyst excision Right tragus. History of lumbar fusion History of surgery on wrist ORIF wrist fracture with hardware. Family History Family History Father Hypertension Lung cancer Mother Hypertension Kidney disease Breast cancer Social History Social History Social History: Surrogate decision maker: Charis Zepeda, significant other. Code status: Full code. Years smoked: 35 Smoking status: Current every day smoker Tobacco type: cigarettes Additional smoking assessment comments: Up to 1 pack of cigarettes per day, now smoking 4 to 5 a day. Alcohol intake: current Substance use type: marijuana Other substance usage details: Occasional marijuana use. Additional living arrangements comments: The patient lives with his significant other, Charis. 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 Gender identity (if verbalized by the patient): Male Spiritual care concerns: No Exam Narrative: Exam Narrative: General appearance: Well-developed, well-nourished Skin: 2+ edema lower extremity bilaterally Head: Normocephalic, nontraumatic Eyes: Clear conjunctiva ENT: Oropharynx normal, ears normal, nose normal Neck: Supple, nontender Chest and respiratory: Airway patent, no respiratory distress, no accessory muscle use Heart: Regular rate/rhythm Abdomen: Distention, tight, nontender, difficult to evaluate for organomegaly, quiet bowel sounds Vascular: Normal peripheral pulses, normal capillary refill. Musculoskeletal: Normal range of motion, nontender back
--- NOTE | 2020-12-30 09:10 | ECG_ITS ---
Measurements Intervals [place] Rate: 68 P: 27 NC: 169 QRS: -31 QRSD: 97 T: 8 QT: 430 QTc: 458 Interpretive Statements SINUS RHYTHM LEFT AXIS DEVIATION INCOMPLETE RIGHT BUNDLE BRANCH BLOCK BORDERLINE T WAVE ABNORMALITY- INFERIOR LEADS BORDERLINE ECG Electronically Signed On 12-30-2020 10:18:15 CDT by Carlitos Joseph D.O.
[2020-12-30 09:33] LABS: Alanine Aminotransferase 22 U/L (4-50); Albumin Level 2.8 g/dL (3.5-5.1); Alkaline Phosphatase 143 U/L (38-126); Anion Gap 3 mmol/L (8-16); Aspartate Amino Transferase 55 U/L (17-59); Basophils Absolute Auto 0.1 K/mm3 (0.0-0.1); Basophils Percent Auto 2.1 % (0.2-1.2); Bilirubin,Total 2.8 mg/dL (0.2-1.3); Blood Urea Nitrogen 13 mg/dL (9-20); Calcium 8.2 mg/dL (8.4-10.2); Carbon Dioxide 28 mmol/L (22-30); Chloride 108 mmol/L (98-107); Eosinophils Absolute Auto 0.3 K/mm3 (0-0.3); Eosinophils Percent Auto 5.9 % (0-4.4); Estimated CRCL calculation 184 ml/min; Estimated Glomerular Filt Rate > 60; Glucose 102 mg/dL (75-110); Hematocrit 37.3 % (42.0-52.0); Hemoglobin 12.8 g/dL (14.0-18.0); INR 1.8; Immature Granulocyte Absolute 0.01 K/mm3 (0.00-0.031); Immature Granulocyte Percent A 0.2 % (0-0.5); Immature Platelet Fraction Pct 4.3 % (0.9-11.2); Lymphocytes Absolute Auto 1.74 K/mm3 (0.9-3.2); Lymphocytes Percent Auto 41.3 % (18.3-44.2); Mean Corpuscular HGB Conc 34.3 g/dl (32-36); Mean Corpuscular Volume 99.2 fl (80-100); Mean Platelet Volume 10.7 fl (7.4-10.4); Monocytes Absolute Auto 0.5 K/mm3 (0.1-0.6); Monocytes Percent Auto 12.8 % (2.6-8.5); Neutrophils Absolute Auto 1.6 K/mm3 (1.3-6.7); Neutrophils Percent Auto 37.7 % (45.5-73.1); Platelet Count Result 94 k/mm3 (150-375); Prothrombin Time 21.3 Seconds (11.1-14.7); Red Blood Count 3.76 M/mm3 (4.6-6.20); Red Cell Distribution Width 13.7 % (11.5-14.5); Sodium 139 mmol/L (137-145); White Blood Count 4.2 K/mm3 (4.5-10.0)
[2020-12-30 09:34] LABS: Partial Thromboplastin Time 34.5 SECONDS (22.3-36.8)
--- NOTE | 2020-12-30 11:50 | PC.NURSE ---
This patient, Cornelio Pedroza, was admitted to [facility] Room 330-01. Patient/family oriented to hospital policies and general routines including ID bracelet, bed and alarms, visiting hours, pain management, procedures, bathroom and other care routines, personal items, smoking policy, room service/diet, and visiting hours. Report received from [facility]. Information on how to activate the Rapid Response Team has been discussed. Patient/Family are encouraged to report perceived risks to care and to ask questions if they do not understand what they are told or what they should do.
--- NOTE | 2020-12-30 16:00 | PM.DS ---
DS: Admitting Diagnosis Admitting Diagnosis Admitting Diagnosis: 1. Fluid retention. 2. Cirrhosis of the liver with ascites. 3. Right pleural effusion. 4. Chronic hepatitis-C. 5. Hypertension. DS: Discharge Diagnosis Discharge Diagnosis (1) Fluid retention: Code(s): R60.9 - Edema, unspecified Status: Acute (2) Cirrhosis of liver with ascites: Qualifiers: Hepatic cirrhosis type: unspecified hepatic cirrhosis Qualified Code(s): K74.60 - Unspecified cirrhosis of liver; R18.8 - Other ascites Code(s): K74.60 - Unspecified cirrhosis of liver; R18.8 - Other ascites Status: Acute (3) Pleural effusion on right: Code(s): J90 - Pleural effusion, not elsewhere classified Status: Acute (4) Chronic hepatitis C: Code(s): B18.2 - Chronic viral hepatitis C Status: Acute (5) Hypertension: Code(s): I10 - Essential (primary) hypertension Status: Acute DS: Summary Hospital Course Reason for hospitalization: The patient presented with increasing edema in his abdomen and legs over the past 3 weeks and he was admitted for treatment of the same. He assumed he had reaccumulating ascites and thought that he needed a paracentesis. Patient states compliance with his Lasix but it sounds like he stopped taking his spironolactone as it ?dried me out too much and I had muscle cramps.? He did not know about the right-sided pleural effusion but denies shortness of breath although he does have some mild coughing when he 1st goes to lay down. No significant orthopnea or PND. He denies fever, chills, and sweats. No abdominal pain, nausea, vomiting, or diarrhea. He has not noticed a change in urine output. Hospital Course: The patient was admitted through the emergency department under observation status to the hospitalist service with increasing edema in his abdomen and legs. He was also found to have a moderate-sized right-sided pleural effusion. He remained afebrile and vital signs were stable throughout his stay. Blood pressures were running a bit high in the 140s to low 150 systolic. His chronic anemia and chronic thrombocytopenia were stable on review of previous labs. He has evidence of synthetic dysfunction with prolonged coags and mild hypoalbuminemia, all which are similar to labs that have been obtained within the last several months. Chest x-ray showed the interval development of diffuse hazy right basilar opacification most likely moderate pleural effusion with adjacent atelectasis. He gave no history to suggest underlying pneumonia. The patient received no intervention in the emergency department. At the time my evaluation he was confused as to why he was admitted and thought he would just come in for a paracentesis and to be discharged home from the emergency department. I spoke with Dr. Linares (interventional radiology) and he was gracious enough to attempt paracentesis on this patient however he only saw a small amount of ascites sitting around the liver and the paracentesis was canceled. The patient did not wish to stay in the hospital as he only came for paracentesis as he believed his ascites was reaccumulating. Instead it looks like he is starting to retain fluid in the abdominal wall and lower extremities. We did discuss the right-sided pleural effusion however he is not having symptoms of that at this time and he wished to be discharged. I gave him a 1 time dose of Lasix 20 milligrams IV and he was instructed to resume his p.o. Lasix tomorrow as per usual. We also discussed elevating the legs as often as possible and following a low-sodium diet. He was encouraged to call his primary care provider tomorrow to discuss his pleural effusion and increasing edema. I also spoke with Dr. Norton (Gastroenterology) and let him know the plan was to do a paracentesis and discharged home this evening, which of course was ultimately canceled. He is to follow-up with Dr. Kwon
[2020-12-30] MEDS: FUROSEMIDE INJ 40 MG/4 ML VIAL 20 MG IV PUSH (17:57)
== END 2020-12-30 19:10 | disposition home or self-care (01) ==
LOC: ANHED 09:57 → ANH3MEDSUR 10:38
PROVIDERS: Admitting Provider Family Medicine; Emergency Provider Emergency Medicine; PCP Family Medicine; Visit Provider Family Medicine
DX: R60.9 Edema, unspecified (principal); K74.60 Unspecified cirrhosis of liver; B18.2 Chronic viral hepatitis C; R06.02 Shortness of breath; F17.210 Nicotine dependence, cigarettes, uncomplicated; J90 Pleural effusion, not elsewhere classified; I10 Essential (primary) hypertension
CPT/HCPCS: 36415; 71045; 76705; 80053; 85025; 85055; 85610; 85730; 93005; 96374; 99285; G0378; J1940

== ENCOUNTER 2021-04-06 16:38 | Inpatient (IN) | payer MEDICARE, MEDICAID, SELFPAY ==
--- NOTE | ~2021-04-06 | CT_ITS ---
EXAMINATION: CT abdomen pelvis w con DATE: 04/06/2021 20:45 INDICATION: Abdominal pain TECHNIQUE: Computed tomography (CT) of the abdomen and pelvis was performed with 100 cc Omnipaque 350 intravenous contrast. Automated exposure control and iterative reconstruction technique were employe d. Exam dose: 1173.47 mGy-cm total exam DLP. COMPARISON: 12/30/2020 abdominal ultrasound Limited examination FINDINGS: There is moderately large right pleural effusion with prominent right lower lobe compressiv e atelectasis/consolidation, multiple air bronchograms. There is fluid in the minor fissure. No left pleural effusion. The lower left lung is clear. Normal heart size. No pericardial effusion. There is surface nodularity of the liver consistent with cirrhosis. There is splenomegaly, the spleen measuring vertical dimension of 15 cm. Lower paraesophageal and abdominal varices are noted. There is mild ascites. Small stones are identified in the gallbladder fundic area. There is thickening of the gallbladder wa ll which may be due to acute or chronic cholecystitis or ascites. No intrahepatic or extrahepatic bile duct dilatation. There is nonspecific gastrohepatic and peripancreatic, deng hepatis and portacaval lymphadenopathy. There are shotty periaortic and aortocaval lymph nodes. Normal morphology of the adrenal glands. There is considerable streak artifact from hardware in the lumbar spine, limiting soft tissue detail. This complicates evaluation of an approximately 1.7 cm area of diminished attenuation in the posteri or mid left kidney. Differential diagnosis for this focal area of irregular diminished enhancement in cludes infarct, pyelonephritis, neoplasm. Nonobstructing approximately 3.5 mm lower pole left renal calculus. Additional pinpoint renal calculi are not excluded, difficult to evaluate because of the streak artifact. No ureteral calculus or hydroureteronephrosis is evident. There is atherosclerotic calcification of the abdominal aorta and iliac arteries; no aneurysm is note d. The urinary bladder is unremarkable. There is mild prostate enlargement. There is fluid containing small bowel segments measuring upper limits of normal caliber. There is thi ckening of the wall of small bowel and colon. Consider infectious or inflammatory enterocolitis. Posterior surgical spinal fusion in the lower thoracic and lumbar spine and upper sacral area. There is severe degenerative disease of the thoracic and lumbar spine. IMPRESSION: Cirrhosis, splenomegaly, varices, mild ascites Nonspecific mild gastrohepatic, peripancreatic, deng hepatis and aortocaval lymphadenopathy. Shotty periaortic and aortocaval lymph nodes Fluid distended small bowel and thickening of the wall of small and large bowel, suggesting enterocol itis Cholelithiasis Gallbladder wall thickening may be due to acute or chronic cholecystitis or ascites Focal approximately 1.7 cm area of diminished attenuation in the posterior mid left kidney; different ial diagnosis includes pyelonephritis, infarcts, neoplasm Reviewed, dictated and finalized at [facility]. Reviewed, dictated and finalized at location A. IMPRESSION: Cirrhosis, splenomegaly, varices, mild ascites Nonspecific mild gastrohepatic, peripancreatic, deng hepatis and aortocaval ly mphadenopathy. Shotty periaortic and aortocaval lymph nodes Fluid distended small bowel and thickening of the wall of small and large bowel , suggesting enterocolitis Cholelithiasis Gallbladder wall thickening may be due to acute or chronic cholecystitis or asc ites Focal approximately 1.7 cm area of diminished attenuation in the posterior mid left kidney; differential diagnosis includes pyelonephritis, infarcts, neoplasm
--- NOTE | ~2021-04-06 | XR_ITS ---
EXAMINATION: [id number] DATE: 04/14/2021 12:45 INDICATION: Right pleural effusion postthoracentesis TECHNIQUE: PA and lateral view of the chest was obtained. COMPARISON: Chest radiograph dated 04/13/[address] dated 04/10/2021. FINDINGS: Airspace opacity at the posterior right lung base consistent with residual small pleural effusion and associated basilar atelectasis and/or pneumonia. Left lung remains clear. No pneumothorax or left-si ded pleural effusion. Cardiomediastinal silhouette is normal. Severe mid to lower thoracic spondylosi s. Partially visualized instrumented posterior spinal fusion with bilateral vertical michael and pedicle screw fixation beginning at T10 and extending below the caudal margin of the [id number] which is a t L2. IMPRESSION: 1. No pneumothorax with residual small right pleural effusion with right basilar atelectasis and/or p neumonia post thoracentesis. Reviewed, dictated and finalized at location A. IMPRESSION: 1. No pneumothorax with residual small right pleural effusion with right basila r atelectasis and/or pneumonia post thoracentesis.
--- NOTE | ~2021-04-06 | XR_ITS ---
XR chest 1V portable DATE: 04/09/2021 22:47 INDICATION: Cough, shortness of breath TECHNIQUE: Portable upright AP chest on 04/09/2021 at 2239 hours COMPARISON: 12/30/2020 portable AP chest at 0931 hours 10/20/2020 PA and lateral chest FINDINGS: There is opacification of the lower half of the right hemithorax which may be due to any co mbination of elevated right diaphragm, pleural effusion and/or atelectasis/consolidation. The left lung is clear of consolidation. No left pleural effusion. Bilateral thoracolumbar pedicle screws and rods. Degenerative spurring of the thoracic spine. Osteoarthritic change at the included left glenohumeral joint. IMPRESSION: Little interval change since 12/30/2020 Reviewed, dictated and finalized at location A.
--- NOTE | ~2021-04-06 | CT_ITS ---
EXAMINATION: CT chest abdomen pelvis w con DATE: 04/10/2021 10:11 INDICATION: Increasing abdominal pain and abdominal distention TECHNIQUE: Computed tomography (CT) of the chest, abdomen, and pelvis was performed with 100 cc Omnip aque 350 intravenous contrast. Automated exposure control and iterative reconstruction technique were employed. Exam dose: 1707.58 mGy-cm total exam DLP. COMPARISON: 04/09/2021 portable AP chest 04/02/2021 CT abdomen pelvis 10/20/2020 CT pulmonary scan FINDINGS: CHEST CT: There is a very large right pleural effusion occupying greater than 50% of the right thoracic cavity with prominent compressive atelectasis of middle and particularly right lower lobe. Bilateral apical scarring. The left lung is clear of consolidation. No left pleural effusion. 8 x 11.5 mm hypoenhancing lesion of the lower pole the right lobe of the thyroid gland. No hilar or mediastinal mass lesion or lymphadenopathy. No thoracic aortic aneurysm or dissection. Normal heart size. No pericardial effusion. ABDOMEN/PELVIS CT: There is surface nodularity of liver consistent with cirrhosis. Esophageal and abdominal varices are identified consistent with portal hypertension. The spleen measures 14.5 cm vertical dimension consistent with splenomegaly. Normal morphology of the adrenal glands. No renal mass lesion or urinary tract calculus or hydroureteronephrosis. Calcification of the abdominal aorta and iliac arteries; no abdominal aortic aneurysm. No intraperitoneal or retroperitoneal or pelvic mass lesion or adenopathy or ascites. Normal appendix. No bowel obstruction or intraperitoneal free air. The urinary bladder is unremarkabl e. Mild prostate enlargement. Small bilateral fat-containing inguinal hernias. Thoracic and lumbar and sacral/iliac screws and spinal rods extend from T10 to the sacroiliac region. IMPRESSION: Very large right pleural effusion with compressive atelectasis of the middle and particu larly right lower lobe Cirrhosis, portal hypertension, esophageal and abdominal varices Splenomegaly Reviewed, dictated and finalized at [facility]. Reviewed, dictated and finalized at location A. IMPRESSION: Very large right pleural effusion with compressive atelectasis of the middle and particularly right lower lobe Cirrhosis, portal hypertension, esophageal and abdominal varices Splenomegaly
--- NOTE | ~2021-04-06 | US_ITS ---
EXAMINATION: US renal BI DATE: 04/07/2021 09:17 INDICATION: Left renal lesion on CT scan TECHNIQUE: Multiple ultrasound grayscale images of the kidneys were obtained. COMPARISON: 04/06/2021 FINDINGS: The right kidney measures 11.5 x 7.3 x 6.9 cm. The left kidney measures 11.9 x 6.8 x 6.2 cm. The kidn eys demonstrate normal echogenicity. The lesion at the posterior right kidney is poorly visualized, m easuring approximately 1.5 cm and appearing relatively anechoic but with poorly defined margins and w ithout definitive posterior acoustic enhancement. There is no hydronephrosis in either kidney. No st ones identified. The bladder is normal. IMPRESSION: 1. The lesion of concern at the posterior right kidney appears relatively anechoic but is poorly vis ualized without clearly defined peripheral wall or posterior acoustic enhancement which is suggestive but not diagnostic of a cyst. Would recommend further evaluation with pre and postcontrast MRI. Give n the presence of metallic posterior spinal fusion instrumentation, additional nonfat saturated pre a nd postcontrast T1-weighted sequences might be helpful. Reviewed, dictated and finalized at location B. IMPRESSION: 1. The lesion of concern at the posterior right kidney appears relatively anec hoic but is poorly visualized without clearly defined peripheral wall or powder mill operator ior acoustic enhancement which is suggestive but not diagnostic of a cyst. Woul d recommend further evaluation with pre and postcontrast MRI. Given the presenc e of metallic posterior spinal fusion instrumentation, additional nonfat satura constance pre and postcontrast T1-weighted sequences might be helpful.
--- NOTE | ~2021-04-06 | US_ITS ---
EXAMINATION: US abdomen limited EXAM DATE: 04/08/2021 08:17 INDICATION: Gallbladder wall thickening. TECHNIQUE: Multiple grayscale and Doppler images of the abdomen right upper quadrant were obtained (jeffery orozco a technologist who performed the scan) and subsequently reviewed. Correlation is made to CT 04/06/20. FINDINGS: The pancreatic head and body are normal in appearance. The pancreatic tail is not visualized. There is nodular liver contour, consistent with cirrhosis. There are no focal liver lesions identified. There is no evidence of intrahepatic biliary duct dilation. Portal venous flow was seen in the hepa topedal, normal direction and has normal Doppler waveform. No right-sided hydronephrosis. Common bile duct measures 5-6 mm, which is normal. Small amount of perihepatic ascites. Gallbladder w all mildly thickened at 4 mm. There are several small gallstones. Technologist performing exam repor ts patient did not demonstrate sonographic Newell's sign. Please note that this sign is less reliabl e in patients who have received pain medication. IMPRESSION: 1. Mild gallbladder wall thickening, nonspecific, particularly in setting of cirrhosis and ascites. 2. Small cholelithiasis. Reviewed, dictated and finalized at location A. IMPRESSION: 1. Mild gallbladder wall thickening, nonspecific, particularly in setting of c irrhosis and ascites. 2. Small cholelithiasis.
--- NOTE | ~2021-04-06 | US_ITS ---
EXAMINATION: US thoracentesis DATE: 04/14/2021 12:50 INDICATION: Right pleural effusion TECHNIQUE: The procedure and its risks and benefits were discussed with the patient. Potential risks discussed included bleeding, infection, and pneumothorax. The patient understood the risks and agreed to proceed. The skin was prepped and draped in sterile fashion. 1% lidocaine was used for local anes thesia. Under ultrasound guidance, a 5 Fr catheter with trochar was advanced into the moderate-sized right pleural effusion. Fluid was aspirated. The catheter was removed, and a dressing was applied. Th ere were no immediate complications. FINDINGS: Ultrasound images demonstrate a moderate-sized right pleural effusion and the catheter within the flu id. IMPRESSION: 1. Successful ultrasound-guided thoracentesis yielding 1200 mL of clear geneva-colored fluid. Reviewed, dictated and finalized at location A. IMPRESSION: 1. Successful ultrasound-guided thoracentesis yielding 1200 mL of clear geneva- colored fluid.
--- NOTE | ~2021-04-06 | XR_ITS ---
EXAMINATION: XR chest 1V portable INDICATION: Right-sided effusion TECHNIQUE: Portable AP chest at 0912 hours COMPARISON: 04/09/2021 FINDINGS: A moderate size right pleural effusion is unchanged. There are associated airspace opacitie s of the right lower lung zone, likely passive atelectasis. There is no pneumothorax. The cardiomedia stinal silhouette is normal for technique. There are partially imaged changes of thoracolumbar fusion . IMPRESSION: 1. Moderate size right pleural effusion. 2. Right basilar airspace opacity, likely passive atelectasis. Reviewed, dictated and finalized at location A.
--- NOTE | ~2021-04-06 | XR_ITS ---
EXAMINATION: XR chest 1V portable INDICATION: Right pleural effusion TECHNIQUE: Portable AP chest at 0522 hours COMPARISON: 04/14/2021 FINDINGS: A small right pleural effusion persists without significant change. There is no pneumothora x. Right basilar airspace opacities are unchanged. There are minimal airspace opacities of the left l guerita base. The cardiomediastinal silhouette is normal. There are partially imaged changes of posterior fusion in the thoracolumbar spine. IMPRESSION: 1. Small right pleural effusion, stable. 2. Bibasilar airspace opacities, likely atelectasis. Reviewed, dictated and finalized at location A.
--- NOTE | ~2021-04-06 | US_ITS ---
EXAMINATION: US abdomen limited DATE: 04/09/2021 12:51 INDICATION: Ascites TECHNIQUE: Multiple grayscale and Doppler ultrasound images of the abdomen were obtained for planned paracentesis which was deferred due to insufficient fluid. COMPARISON: None FINDINGS: Small pocket of perihepatic ascites measuring approximately 9 x 2 cm . No other ascites evident in th e left upper, left lower or right lower quadrants. IMPRESSION: 1. Minimal perihepatic ascites, insufficient to warrant therapeutic paracentesis. Reviewed, dictated and finalized at location B. IMPRESSION: 1. Minimal perihepatic ascites, insufficient to warrant therapeutic paracentesi s.
[2021-04-06 16:45] VITALS: BP 170/105; PULSE 116; RESP 28; TEMP 37.6; O2SAT 95
[2021-04-06 17:44] LABS: Basophils Percent Auto 0.5 % (0.2-1.2); Eosinophils Percent Auto 0.1 % (0-4.4); Hematocrit 38.6 % (42.0-52.0); Hemoglobin 13.3 g/dL (14.0-18.0); Immature Granulocyte Absolute 0.02 K/mm3 (0.00-0.031); Immature Granulocyte Percent A 0.2 % (0-0.5); Immature Platelet Fraction Pct 6.2 % (0.9-11.2); Lymphocytes Absolute Auto 1.53 K/mm3 (0.9-3.2); Lymphocytes Percent Auto 18.9 % (18.3-44.2); Mean Corpuscular HGB Conc 34.5 g/dl (32-36); Mean Corpuscular Hemoglobin 34.4 pg (26-34); Mean Corpuscular Volume 99.7 fl (80-100); Mean Platelet Volume 11.6 fl (7.4-10.4); Monocytes Absolute Auto 0.5 K/mm3 (0.1-0.6); Monocytes Percent Auto 5.7 % (2.6-8.5); Neutrophils Percent Auto 74.6 % (45.5-73.1); Platelet Count Result 64 k/mm3 (150-375); Red Blood Count 3.87 M/mm3 (4.6-6.20); Red Cell Distribution Width 14.4 % (11.5-14.5); White Blood Count 8.1 K/mm3 (4.5-10.0)
[2021-04-06 17:53] LABS: Alanine Aminotransferase 37 U/L (4-50); Albumin Level 3.4 g/dL (3.5-5.1); Alkaline Phosphatase 159 U/L (38-126); Anion Gap 10 mmol/L (8-16); Aspartate Amino Transferase 86 U/L (17-59); Bilirubin,Total 11.1 mg/dL (0.2-1.3); Blood Urea Nitrogen 10 mg/dL (9-20); Calcium 8.5 mg/dL (8.4-10.2); Carbon Dioxide 22 mmol/L (22-30); Chloride 100 mmol/L (98-107); Estimated CRCL calculation 218 ml/min; Estimated Glomerular Filt Rate > 60; Glucose 163 mg/dL (65-110); Lipase 34 U/L (23-300); Potassium 3.2 mmol/L (3.4-5.0); Sodium 132 mmol/L (137-145)
[2021-04-06 18:50] VITALS: BP 183/100; PULSE 88; RESP 18; O2SAT 97
[2021-04-06 19:06] LABS: INR 2.1; Prothrombin Time 23.4 Seconds (11.1-14.7)
[2021-04-06 19:07] LABS: Partial Thromboplastin Time 33.7 SECONDS (22.3-36.8)
[2021-04-06 19:41] VITALS: BP 152/81; PULSE 91; RESP 24; O2SAT 98
--- NOTE | 2021-04-06 19:54 | ED.GENADULT ---
HPI - General Adult General Chief complaint: Abdominal Pain Stated complaint: SOB-stage 4 cirrhosis ,put on 25-30 lbs in 48 hrs Time Seen by Provider: 04/06/21 19:29 Source: patient History of Present Illness HPI narrative: Patient is 55 y/o male complaining of diffuse abdominal pain and swelling since yesterday. He describes his pain as sharp with no radiation. He rates his pain as 8/10. There is no alleviating or exacerbating factor. He also has some vomiting and diarrhea. He has known history of cirrhosis with ascites. Related Data Home Medications Medication Instructions Recorded Confirmed sofosbuvir-velpatasvir [Epclusa] 1 tablet PO DAILY 12/30/20 04/07/21 gabapentin 1,200 mg PO HS 04/07/21 04/07/21 oxycodone 5 mg PO TID PRN 04/07/21 04/07/21 Allergies Allergy/AdvReac Type Severity Reaction Status Date / Time No Known Allergies Allergy Verified 04/06/21 20:16 Review of Systems Constitutional: Constitutional: Denies chills, Denies fever(s), Denies headache(s) and Denies weakness Eyes: Eyes: Denies blurry vision ENT: Denies headache(s) and Denies neck pain Cardiovascular: Cardiovascular: Denies chest pain and Denies dyspnea Respiratory: Respiratory: Denies cough and Denies dyspnea Gastrointestinal: Gastrointestinal: Reports abdominal pain, Reports diarrhea, Reports nausea and Reports vomiting Genitourinary: Genitourinary: Denies hematuria and Denies dysuria Musculoskeletal: Musculoskeletal: Denies back pain and Denies neck pain Neurologic: Denies headache(s) and Denies weakness [facility] Past Medical History Medical History (Updated 04/08/21 @ 10:02 by Kelley Infante MD) Alcohol abuse Anxiety Arthritis Chronic hepatitis C Cirrhosis of liver Dyslipidemia Erosive esophagitis Hypertension Nicotine dependence Normal echocardiogram October 2020: EF 60-65%, mild left atrial enlargement, mild minimally elevated E/e', mild mitral valve regurgitation Obstructive sleep apnea Portal hypertensive gastropathy Surgical History Surgical History (Updated 04/07/21 @ 07:51 by Josey Thompson DO) History of cardiac catheterization History of elbow surgery Right elbow surgery as a teenager to remove a bony cyst History of epidermal inclusion cyst excision Right tragus. History of fusion of cervical spine Following C4-C5 fracture followed a year later by replacement of hardware due to loosening of screws, followed later by fusion from the cervical spine through the lumbar spine History of lumbar fusion History of surgery on wrist ORIF wrist fracture with hardware. Family History Family History Father Lung cancer Hypertension Mother Kidney disease Breast cancer Hypertension Parkinson disease Social History Social History (Updated 04/07/21 @ 05:32 by Josey Thompson DO) Social History: Surrogate decision maker: Charis Zepeda () Code status: Full code. Smoking packs per day: 0.2 Smoking cigarettes per day: 4.0 Years smoked: 40 Smoking pack-years: 8.00 Smoking status: Current some day smoker Tobacco type: cigarettes Second hand tobacco smoke exposure: Yes Additional smoking assessment comments: He used to smoke 0.5 PPD. He now smokes 1 pack Q 2 weeks. Alcohol intake: former Drinks per week: 0 Alcohol use details: He used to drink vodka daily but has not done so in several months. Substance use: current Substance use type: marijuana Other substance usage details: Occasional marijuana use. Additional living arrangements comments: He his February 2021. 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 Gender identity (if verbalized by the patient): Male Spiritual care concerns: No Exam Const: General:
[2021-04-06] MEDS: MORPHINE SULFATE (*CRX) 4 MG/ML INJ IV PUSH ×2 (20:17→23:32)
[2021-04-06] MEDS: ONDANSETRON INJ 4 MG/2 ML VIAL IV PUSH ×2 (20:29→23:32)
--- NOTE | 2021-04-06 20:32 | PC.NURSE ---
Pt to CT via stretcher at this time
[2021-04-06 21:04] VITALS: BP 154/81; PULSE 94; RESP 20; O2SAT 94
--- NOTE | 2021-04-06 21:28 | PC.NURSE ---
Dr. Crews at bedside for abdominal tap.
[2021-04-06] MEDS: METOCLOPRAMIDE HCL INJ 10 MG/2 ML VIAL IV PUSH (21:59)
[2021-04-06 22:41] LABS: Ethanol < 10 mg/dL (<10)
[2021-04-06 22:49] LABS: Add Urine Microscopic? YES; Appearance Urine Clear (Clear); Bilirubin Urine 1+ (Negative); Blood Urine 2+ (Negative); Color Urine Yellow (Yellow); Glucose Urine UA Negative (Negative); Ketones Urine Negative (Negative); Leukocyte Esterase Ur Negative LEU/UL (Negative); Nitrate Urine Negative (Negative); Protein Urine Trace mg/dL (Negative); Urobilinogen Urine 0.2 mg/dL (<2.0)
[2021-04-06] MEDS: PHYTONADIONE 5 MG TABLET PO (22:52)
[2021-04-06 23:08] LABS: WBC Urine None seen /hpf
[2021-04-06 23:09] LABS: Bacteria Urine None seen /hpf; Squamous Epithelial Cell Urine Few /hpf (Few)
[2021-04-06] MEDS: metroNIDAZOLE 500 MG/ISO 100ML 500 MG/100 ML BAG 100 MG IVPB (23:56)
[2021-04-07] VITALS (11 sets, daily range): BP systolic 141–167; BP diastolic 77–93; PULSE 56–100; RESP 18–24; TEMP 36.2–37.4; O2SAT 95–99; BMI 32.1
--- NOTE | 2021-04-07 00:19 | ADMGEN ---
This patient, Cornelio Pedroza, was admitted to 2 Medical Room 260-01. Patient/family oriented to hospital policies and general routines including ID bracelet, bed and alarms, visiting hours, pain management, procedures, bathroom and other care routines, personal items, smoking policy, room service/diet, and visiting hours. Information on how to activate the Rapid Response Team has been discussed. Patient/Family are encouraged to report perceived risks to care and to ask questions if they do not understand what they are told or what they should do.
--- NOTE | 2021-04-07 00:52 | ECG_ITS ---
Measurements Intervals Counce Rate: 96 P: -15 PA: 142 QRS: -36 QRSD: 105 T: 20 QT: 359 QTc: 456 Interpretive Statements SINUS RHYTHM LEFT AXIS DEVIATION INCOMPLETE RIGHT BUNDLE BRANCH BLOCK BORDERLINE ECG Electronically Signed On 04-07-2021 5:46:57 CDT by Carlitos Joseph D.O.
[2021-04-07] MEDS: SODIUM CHLORIDE 0.9% IV 1,000 ML 100 ML IV CONT ×2 (01:36→13:43)
[2021-04-07] MEDS: ONDANSETRON INJ 4 MG/2 ML VIAL IV PUSH ×3 (01:37→21:39)
--- NOTE | 2021-04-07 02:39 | PM.IMHP ---
H&P: HPI History of Present Illness Date/Time: 04/07/21 02:39 Chief Complaint: abdominal distension Narrative: 55-year-old male with past medical history of alcoholism, hepatitis-C and cirrhosis who presented to the ER with abdominal distension and pain for 2 days. The patient reports that he ate some premade meals from [employer] about 3 days ago. 6-12 hours later he began having severe vomiting that was intractable. Couple hours after that he began having diarrhea. He reports that he has small amounts of watery brown stool that her occurring every 30 minutes to an hour. He has had some issues with stool incontinence. He reports that his emesis consisted of the food he has eaten or liquids. He has not been having any black stools, bloody stools or coffee-ground emesis. His stools have been watery and dark brown in color. He does have a history of esophageal varices but has never required variceal banding. He had an EGD October 2020 demonstrated reflux esophagitis, gastritis and duodenitis. He reports that he is currently undergoing treatment for chronic hepatitis-C and has about half a month of his treatment with Epclusa remaining. After his hepatitis-C is cleared he he states that he is supposed be placed on the transplant list. He states that over the last 48 hours he has noticed a 22 lb weight gain. He also had some associated shortness of breath due to abdominal distension and thought that his ascites had reaccumulated. However his CT in the ER only demonstrated a mild amount of ascites and the ER physician performed a paracentesis in only was able to obtain 700 mL of fluid. He has persistent abdominal distension. His nausea has improved since admission any denies any further vomiting since he arrived to the medical floor. He reports that his abdominal pain is a 4/10 in intensity and aching in nature. His pain is generalized around the geneva umbilical region. On palpation of his abdomen is pain is most reproducible in the right upper quadrant. He had not noticed any fevers at home but he had a low-grade fever of 99.7 on arrival to the ER. He reports that his also became ill with diarrheal symptoms after eating the same food that he had eaten. She did not have onset of vomiting. He has not had any recent travel. He completed an antibiotic prescription for amoxicillin following some dental work 2 weeks ago. He is fully vaccinated against COVID-19 with his last dose of [employer] occurring 3 weeks ago. Despite the patient's report of 22 lb of weight gain he appears clinically volume depleted. He states that he was on Lasix when he was discharged from the hospital here ?a couple of months ago? (October 2020.) He had a paracentesis in October and a 2nd paracentesis in November. He has not taken his Lasix in an indeterminate amount of time. He reports that he actually came into the hospital because he began to feel short of breath and could not take a deep breath. He stated that he was afraid he may have been having a heart attack. He reports that he was having some chest discomfort but it was burning in nature and occurred after he had had multiple episodes of vomiting. He had a prior He follows with a plant maintenance technician at [facility]. Review of Systems Review of Systems: 12 systems were reviewed with pertinent positives and negatives per HPI. Except as documented in the HPI, all other systems were reviewed and are negative. [facility] Past Medical History Medical History (Updated 04/07/21 @ 05:41 by Joesy Thompson DO) Alcohol abuse Anxiety Arthritis Chronic hepatitis C Cirrhosis of liver Dyslipidemia Erosive esophagitis Hypertension Nicotine dependence Normal echocardiogram October 2020: EF 60-65%, mild left atrial enlargement, mild minimally elevated E/e', mild mitral valve regurgitation Obstructive sleep apnea Portal hypertensive gastropathy Surgical History Surgical History
--- NOTE | 2021-04-07 02:50 | PHAR ---
Sofosbuvir-Velpatasvir [Epclusa] 400-100 mg tablet VERIFIED IN PHARMACY AND SENT BACK TO [facility]
[2021-04-07] MEDS: POTASSIUM CHLORIDE 20 MEQ TABLET 40 MEQ PO (05:30)
[2021-04-07] MEDS: oxyCODONE HCL (*CRX) 5 MG TAB IR PO ×3 (05:30→21:39)
[2021-04-07] MEDS: metroNIDAZOLE 500 MG/ISO 100ML 500 MG/100 ML BAG 100 MG IVPB ×3 (05:31→21:38)
[2021-04-07 05:45] LABS: Basophils Percent Auto 0.3 % (0.2-1.2); Eosinophils Percent Auto 0.3 % (0-4.4); Hematocrit 34.2 % (42.0-52.0); Hemoglobin 11.9 g/dL (14.0-18.0); Immature Granulocyte Absolute 0.04 K/mm3 (0.00-0.031); Immature Granulocyte Percent A 0.5 % (0-0.5); Immature Platelet Fraction Pct 6.9 % (0.9-11.2); Lymphocytes Percent Auto 20.1 % (18.3-44.2); Mean Corpuscular HGB Conc 34.8 g/dl (32-36); Mean Corpuscular Hemoglobin 34.6 pg (26-34); Mean Corpuscular Volume 99.4 fl (80-100); Mean Platelet Volume 11.9 fl (7.4-10.4); Monocytes Absolute Auto 0.7 K/mm3 (0.1-0.6); Monocytes Percent Auto 8.5 % (2.6-8.5); Neutrophils Absolute Auto 5.6 K/mm3 (1.3-6.7); Neutrophils Percent Auto 70.3 % (45.5-73.1); Platelet Count Result 54 k/mm3 (150-375); Red Blood Count 3.44 M/mm3 (4.6-6.20); Red Cell Distribution Width 14.2 % (11.5-14.5)
[2021-04-07 05:50] LABS: Appearance Peritoneal Fluid Cloudy (Clear); Color Peritoneal Fluid Yellow (Colorless); Nucleated Cells Peritoneal Flu 7800 /uL (0-500); RBC Peritoneal Fluid 7900 /uL (0-100000); Source Peritoneal Fluid Peritoneal Fluid
[2021-04-07 06:10] LABS: Alanine Aminotransferase 31 U/L (4-50); Albumin Level 2.8 g/dL (3.5-5.1); Alkaline Phosphatase 104 U/L (38-126); Anion Gap 2 mmol/L (8-16); Aspartate Amino Transferase 61 U/L (17-59); Bilirubin,Total 9.1 mg/dL (0.2-1.3); Blood Urea Nitrogen 12 mg/dL (9-20); Calcium 7.8 mg/dL (8.4-10.2); Carbon Dioxide 27 mmol/L (22-30); Chloride 105 mmol/L (98-107); Estimated CRCL calculation 215 ml/min; Estimated Glomerular Filt Rate > 60; Glucose 142 mg/dL (65-110); Potassium 3.5 mmol/L (3.4-5.0); Sodium 134 mmol/L (137-145)
[2021-04-07 07:57] LABS: Neutrophils Peritoneal Fluid 64 % (0-25)
[2021-04-07 07:58] LABS: Macrophages Peritoneal Fluid 32 %; Monocytes Peritoneal Fluid 4 %
[2021-04-07] MEDS: PROPRANOLOL HCL 20 MG TABLET PO ×2 (08:28→21:37)
--- NOTE | 2021-04-07 16:51 | PM.IMPN ---
Progress Note: A&P Assessment and Plan (1) Enterocolitis: Code(s): K52.9 - Noninfective gastroenteritis and colitis, unspecified Status: Acute Assessment and Plan: CT abdomen/pelvis with fluid distance small-bowel and wall thickening suggesting enterocolitis. Reports eating questionable beef, concerning for food poisoning. Continue with IV antibiotics Rocephin and Flagyl Supportive care. Analgesics and antiemetics available as needed Tolerating heart healthy diet (2) Cirrhosis of liver with ascites: Qualifiers: Hepatic cirrhosis type: unspecified hepatic cirrhosis Qualified Code(s): K74.60 - Unspecified cirrhosis of liver; R18.8 - Other ascites Code(s): K74.60 - Unspecified cirrhosis of liver; R18.8 - Other ascites Status: Acute Assessment and Plan: He reports he has stage IV liver cirrhosis. He is established with alarm operator at [facility]. Underwent paracentesis on 04/06 which yelied 700 cc cloudy fluid. Ascitic fluid cultures are pending. Continue with IV abx as above while awaiting results. Continue propranolol Consider consult to GI based on results of ascitic fluid cultures (3) Positive blood cultures: Code(s): R78.81 - Bacteremia Status: Acute Assessment and Plan: 2/2 blood cultures with growth of Gram-negative bacilli. Suspected source of infection is enterocolitis vs spontaneous bacterial peritonitis Continue with empiric IV Rocephin 2 g Await final culture results and tailor antibiotics accordingly Consider Gastroenterology and/or ID consult based on results (4) Thickening of wall of gallbladder: Code(s): K82.8 - Other specified diseases of gallbladder Status: Acute Assessment and Plan: CT abdomen/pelvis showed gallbladder wall thickening which may be due to acute or chronic cholecystitis vs ascites. No real signs or symptoms to suggest cholecystitis. He denies RUQ pain in his tolerating his diet. AST is slightly elevated and total bilirubin is significantly elevated compared to last hospital stay 3 months prior. It is difficult to determine if this can be attributed to his cirrhosis or due to cholecystitis, therefore will proceed with right upper quadrant ultrasound. (5) Abnormal finding on diagnostic imaging of left kidney: Code(s): R93.422 - Abnormal radiologic findings on diagnostic imaging of left kidney Status: Acute Assessment and Plan: CT showed focal 1.7 cm area of diminished attenuation in the posterior mid left kidney. Follow-up renal ultrasound poorly visualized but suggestive of renal cyst. Discussed results with radiologist Dr. Joshi. Will plan for follow up MRI pre and postcontrast, however will await further results including blood cultures and right upper quadrant US. (6) Sepsis: Qualifiers: Sepsis type: sepsis due to unspecified organism Sepsis acute organ dysfunction status: unspecified Qualified Code(s): A41.9 - Sepsis, unspecified organism Code(s): A41.9 - Sepsis, unspecified organism Status: Acute Assessment and Plan: He did technically meet sepsis criteria with tachycardia, tachypnea, and very low-grade fever at 99.7. Also with positive blood cultures. Source of infection is enterocolitis vs spontaneous bacterial peritonitis. Plan as above Fever, tachycardia, and tachypnea have resolved. (7) Hypertension: Code(s): I10 - Essential (primary) hypertension Status: Acute Assessment and Plan: Blood pressure reviewed and has been elevated above target. Improved today with last BP 147/77 Continue with propranolol Monitor BP trends. Consider addition of antihypertensive agent as needed. (8) Chronic hepatitis C: Code(s): B18.2 - Chronic viral hepatitis C Status: Acute Assessment and Plan: Continue Epclusa brought from home. Subjective Date/time seen: 04/07/21 16:51 Inter
[2021-04-07] MEDS: GABAPENTIN 400 MG CAPSULE 1200 MG PO (21:37)
[2021-04-08] VITALS (9 sets, daily range): BP systolic 127–163; BP diastolic 67–93; PULSE 54–87; RESP 14–20; TEMP 36.1–36.6; O2SAT 96–98
[2021-04-08] MEDS: oxyCODONE HCL (*CRX) 5 MG TAB IR PO ×3 (05:37→18:20)
[2021-04-08] MEDS: metroNIDAZOLE 500 MG/ISO 100ML 500 MG/100 ML BAG 100 MG IVPB ×3 (05:37→21:49)
[2021-04-08] MEDS: ONDANSETRON INJ 4 MG/2 ML VIAL IV PUSH ×3 (05:41→18:20)
[2021-04-08 05:42] LABS: Hematocrit 35.5 % (42.0-52.0); Hemoglobin 12.3 g/dL (14.0-18.0); Mean Corpuscular HGB Conc 34.6 g/dl (32-36); Mean Corpuscular Hemoglobin 34.3 pg (26-34); Mean Corpuscular Volume 98.9 fl (80-100); Mean Platelet Volume 11.7 fl (7.4-10.4); Platelet Count Result 81 k/mm3 (150-375); Red Blood Count 3.59 M/mm3 (4.6-6.20); Red Cell Distribution Width 13.9 % (11.5-14.5); White Blood Count 8.8 K/mm3 (4.5-10.0)
[2021-04-08 05:51] LABS: Alanine Aminotransferase 29 U/L (4-50); Albumin Level 2.7 g/dL (3.5-5.1); Alkaline Phosphatase 119 U/L (38-126); Anion Gap 6 mmol/L (8-16); Aspartate Amino Transferase 59 U/L (17-59); Bilirubin,Total 7.1 mg/dL (0.2-1.3); Blood Urea Nitrogen 16 mg/dL (9-20); Calcium 7.7 mg/dL (8.4-10.2); Carbon Dioxide 22 mmol/L (22-30); Chloride 103 mmol/L (98-107); Estimated CRCL calculation 177 ml/min; Estimated Glomerular Filt Rate > 60; Glucose 113 mg/dL (65-110); Potassium 3.3 mmol/L (3.4-5.0); Sodium 131 mmol/L (137-145)
[2021-04-08 06:14] LABS: Hemoglobin A1C 4.9 % (<5.7)
[2021-04-08] MEDS: PROPRANOLOL HCL 20 MG TABLET PO ×2 (08:40→20:36)
[2021-04-08] MEDS: POTASSIUM CHLORIDE 20 MEQ TABLET.ER 40 MEQ PO (09:40)
--- NOTE | 2021-04-08 14:36 | PM.IMPN ---
Progress Note: A&P Assessment and Plan (1) Enterocolitis: Code(s): K52.9 - Noninfective gastroenteritis and colitis, unspecified Status: Acute Assessment and Plan: CT A/P with fluid distended small-bowel and wall thickening suggesting enterocolitis, reported eating questionable beef, concerning for food poisoning Continue with IV antibiotics Rocephin and Flagyl Tolerating diet Supportive care (2) Cirrhosis of liver with ascites: Qualifiers: Hepatic cirrhosis type: unspecified hepatic cirrhosis Qualified Code(s): K74.60 - Unspecified cirrhosis of liver; R18.8 - Other ascites Code(s): K74.60 - Unspecified cirrhosis of liver; R18.8 - Other ascites Status: Acute Assessment and Plan: Per pt stage IV liver cirrhosis He is established with service tech/welder, Dr. Baig ([facility]) S/p paracentesis on 04/06 which yielded 700 cc cloudy fluid Fluid cultures are pending Continue with IV abx as above while awaiting results Continue propranolol GI consulted (3) Positive blood cultures: Code(s): R78.81 - Bacteremia Status: Acute Assessment and Plan: Gram-negative bacilli Suspected source of infection is enterocolitis vs spontaneous bacterial peritonitis Continue with empiric IV Rocephin 2 g Await final culture results and tailor antibiotics accordingly GI and ID consult consulted (4) Thickening of wall of gallbladder: Code(s): K82.8 - Other specified diseases of gallbladder Status: Acute Assessment and Plan: CT abdomen/pelvis showed gallbladder wall thickening which may be due to acute or chronic cholecystitis vs ascites No signs or symptoms to suggest cholecystitis Denies RUQ pain, tolerating diet AST normalized Total bilirubin is elevated compared to last hospital stay 3 months prior, trending down Abd US reviewed GI consulted (5) Abnormal finding on diagnostic imaging of left kidney: Code(s): R93.422 - Abnormal radiologic findings on diagnostic imaging of left kidney Status: Acute Assessment and Plan: CT showed focal 1.7 cm area of diminished attenuation in the posterior mid left kidney Follow-up renal ultrasound poorly visualized but suggestive of renal cyst Plan for follow up MRI pre and postcontrast (6) Sepsis: Qualifiers: Sepsis type: sepsis due to unspecified organism Sepsis acute organ dysfunction status: unspecified Qualified Code(s): A41.9 - Sepsis, unspecified organism Code(s): A41.9 - Sepsis, unspecified organism Status: Acute Assessment and Plan: 2/2 enterocolitis vs spontaneous bacterial peritonitis On admission with tachycardia, tachypnea, and very low-grade fever at 99.7 BC positive blood cultures Plan as above (7) Hypertension: Code(s): I10 - Essential (primary) hypertension Status: Acute Assessment and Plan: Continue with propranolol Monitor BP trends Consider addition of antihypertensive agent as needed (8) Chronic hepatitis C: Code(s): B18.2 - Chronic viral hepatitis C Status: Acute Assessment and Plan: Continue home Epclusa Subjective Date/time seen: 04/08/21 14:36 Interval history: pt seen and evaluated; no acute events overnight; he does endorse some abdominal fullness, abd US today Review of Systems Review of Systems: All systems reviewed & are unremarkable except as noted in HPI and below Exam Const: General: no acute distress, alert and awake Orientation/consciousness: patient oriented x3 HENMT: Head: normocephalic and atraumatic Ears: hearing grossly normal bilaterally and external ears normal Face and sinus: face symmetric Mouth: Yes Normal oral and palatal mucosa present Eyes: EOM: EOMs intact bilaterally Neck: Neck: full ROM, trachea midline and no JVD Resp: Effort & Inspection: normal respiratory effort Auscultation: clear to auscultation bilaterally Cardio: Jugular venous distension: no JVD Rate: r
[2021-04-08] MEDS: GABAPENTIN 400 MG CAPSULE 1200 MG PO (20:36)
[2021-04-08 20:51] LABS: IFOB Positive Control Positive; Immunochemical Fecal Occult Bl Negative (N)
[2021-04-09] VITALS (9 sets, daily range): BP systolic 135–178; BP diastolic 52–92; PULSE 50–75; RESP 20; TEMP 36.1–36.6; O2SAT 93–98
[2021-04-09] MEDS: oxyCODONE HCL (*CRX) 5 MG TAB IR PO ×4 (00:25→20:04)
[2021-04-09] MEDS: ONDANSETRON INJ 4 MG/2 ML VIAL IV PUSH ×3 (00:25→20:59)
[2021-04-09] MEDS: metroNIDAZOLE 500 MG/ISO 100ML 500 MG/100 ML BAG 150 MG IVPB (06:13)
[2021-04-09] MEDS: PROPRANOLOL HCL 20 MG TABLET PO ×2 (08:31→20:59)
[2021-04-09 09:06] LABS: Hematocrit 37.2 % (42.0-52.0); Hemoglobin 12.6 g/dL (14.0-18.0); Immature Platelet Fraction Pct 5.1 % (0.9-11.2); Mean Corpuscular HGB Conc 33.9 g/dl (32-36); Mean Corpuscular Hemoglobin 34.2 pg (26-34); Mean Corpuscular Volume 101.1 fl (80-100); Mean Platelet Volume 11.2 fl (7.4-10.4); Platelet Count Result 102 k/mm3 (150-375); Red Blood Count 3.68 M/mm3 (4.6-6.20); Red Cell Distribution Width 13.8 % (11.5-14.5)
[2021-04-09 09:17] LABS: Anion Gap 3 mmol/L (8-16); Blood Urea Nitrogen 13 mg/dL (9-20); Calcium 7.8 mg/dL (8.4-10.2); Carbon Dioxide 24 mmol/L (22-30); Chloride 106 mmol/L (98-107); Estimated CRCL calculation 177 ml/min; Estimated Glomerular Filt Rate > 60; Glucose 160 mg/dL (65-110); Potassium 3.5 mmol/L (3.4-5.0); Sodium 133 mmol/L (137-145)
--- NOTE | 2021-04-09 12:13 | PM.IMPN ---
Progress Note: A&P Assessment and Plan (1) Enterocolitis: Code(s): K52.9 - Noninfective gastroenteritis and colitis, unspecified Status: Acute Assessment and Plan: CT A/P with fluid distended small-bowel and wall thickening suggesting enterocolitis, reported eating questionable beef, concerning for food poisoning Continue with IV antibiotics Rocephin and Flagyl Tolerating diet Supportive care (2) Cirrhosis of liver with ascites: Qualifiers: Hepatic cirrhosis type: unspecified hepatic cirrhosis Qualified Code(s): K74.60 - Unspecified cirrhosis of liver; R18.8 - Other ascites Code(s): K74.60 - Unspecified cirrhosis of liver; R18.8 - Other ascites Status: Acute Assessment and Plan: Per pt stage IV liver cirrhosis He is established with career technical counselor, Dr. Baig ([facility]) S/p paracentesis on 04/06 which yielded 700 cc cloudy fluid Fluid cultures are pending Continue with IV abx as above while awaiting results Continue propranolol GI consulted US paracentesis today (3) Positive blood cultures: Code(s): R78.81 - Bacteremia Status: Acute Assessment and Plan: Suspected source of infection is enterocolitis vs spontaneous bacterial peritonitis BC +Escherichia Coli Continue with IV Rocephin 2 g Await final culture results for fluid GI and ID consult consulted (4) Thickening of wall of gallbladder: Code(s): K82.8 - Other specified diseases of gallbladder Status: Acute Assessment and Plan: CT abdomen/pelvis showed gallbladder wall thickening which may be due to acute or chronic cholecystitis vs ascites No signs or symptoms to suggest cholecystitis Denies RUQ pain, tolerating diet AST normalized Total bilirubin is elevated compared to last hospital stay 3 months prior, trending down Abd US reviewed GI consulted (5) Abnormal finding on diagnostic imaging of left kidney: Code(s): R93.422 - Abnormal radiologic findings on diagnostic imaging of left kidney Status: Acute Assessment and Plan: CT showed focal 1.7 cm area of diminished attenuation in the posterior mid left kidney Follow-up renal ultrasound poorly visualized but suggestive of renal cyst Plan for follow up MRI pre and postcontrast (6) Sepsis: Qualifiers: Sepsis type: sepsis due to unspecified organism Sepsis acute organ dysfunction status: unspecified Qualified Code(s): A41.9 - Sepsis, unspecified organism Code(s): A41.9 - Sepsis, unspecified organism Status: Acute Assessment and Plan: Likely multifactorial; 2/2 bacteremia; and possible spontaneous bacterial peritonitis On admission with tachycardia, tachypnea, and very low-grade fever at 99.7 BC +Escherichia Coli Continue with Rocephin ID consulted Plan as above (7) Hypertension: Code(s): I10 - Essential (primary) hypertension Status: Acute Assessment and Plan: Continue with propranolol Monitor BP trends Consider addition of antihypertensive agent as needed (8) Chronic hepatitis C: Code(s): B18.2 - Chronic viral hepatitis C Status: Acute Assessment and Plan: Continue home Epclusa Subjective Date/time seen: 04/09/21 12:13 Interval history: pt seen and evaluated; no acute events overnight; he feels SOB Review of Systems Review of Systems: All systems reviewed & are unremarkable except as noted in HPI and below Exam Const: General: no acute distress, alert and awake Orientation/consciousness: patient oriented x3 HENMT: Head: normocephalic and atraumatic Ears: hearing grossly normal bilaterally and external ears normal Face and sinus: face symmetric Mouth: Yes Normal oral and palatal mucosa present Eyes: Pupils: Equal, round and reactive pupils present EOM: EOMs intact bilaterally Neck: Neck: full ROM, trachea midline and no JVD Thyroid: thyroid normal Chest: Chest palpation & inspection: normal inspection of the chest R
--- NOTE | 2021-04-09 15:03 | WPDINFPN2 ---
Progress Note: A&P Assessment and Plan (1) Bacteremia: Code(s): R78.81 - Bacteremia Status: Acute Assessment and Plan: E coli bacteremia with infection, due to SBP REC Ctx #3, tentatively through dose on 04/13 Subjective Date/time seen: 04/09/21 15:03 Objective Data Vital Signs Vital Signs: Vital Signs - 24 hr 04/08/21 18:50 04/08/21 20:00 04/08/21 20:36 Temperature 36.5 C 36.6 C Pulse Rate 55 L 74 74 Respiratory Rate 14 20 Blood Pressure 141/78 H 159/89 H Pulse Oximetry 98 96 04/09/21 00:00 04/09/21 04:00 04/09/21 08:00 Temperature 36.6 C 36.2 C L 36.4 C L Pulse Rate 62 75 55 L Respiratory Rate 20 20 20 Blood Pressure 145/85 H 135/81 142/81 H Pulse Oximetry 94 95 97 04/09/21 08:31 04/09/21 12:00 Temperature 36.6 C Pulse Rate 75 50 L Respiratory Rate 20 Blood Pressure 158/82 H Pulse Oximetry 98 Intake/Output Intake/Output: Intake & Output 04/06/21 04/07/21 04/08/21 04/09/21 23:59 23:59 23:59 23:59 Intake Total 100 2970 1310 870 Output Total 700 Balance 100 2270 1310 870 Meds/Results Medications: Active Medications Generic Name Dose Route Start Last Admin Trade Name Freq PRN Reason Stop Dose Admin Gabapentin 1,200 mg 04/07/21 21:00 04/08/21 20:36 Gabapentin 400 Mg Capsule PO 1,200 mg HS JOHNNIE Administration Ceftriaxone Sodium 2 gm in 100 mls @ 200 mls/hr 04/07/21 23:00 04/08/21 22:55 Rocephin 2 Gm/D5w 100 Ml IVPB 100 mls/hr Q24H JOHNNIE Administration Ondansetron HCl 4 mg 04/07/21 00:54 04/09/21 14:51 Ondansetron Inj 4 Mg/2 Ml Vial IV PUSH 4 mg Q6H PRN Administration Nausea And Vomiting Oxycodone HCl 5 mg 04/07/21 00:53 04/09/21 13:19 Oxycodone Hcl (*Crx) 5 Mg Tab Ir PO 5 mg TID PRN Administration Pain (Scale Score 7-10) Propranolol HCl 20 mg 04/07/21 09:00 04/09/21 08:31 Propranolol Hcl 20 Mg Tablet PO 20 mg Q12HR JOHNNIE Administration Radiology Results: ITS Impressions Abdomen/Pelvis CT 04/06/21 20:46 IMPRESSION: Cirrhosis, splenomegaly, varices, mild ascites Nonspecific mild gastrohepatic, peripancreatic, deng hepatis and aortocaval lymphadenopathy. Shotty periaortic and aortocaval lymph nodes Fluid distended small bowel and thickening of the wall of small and large bowel, suggesting enterocolitis Cholelithiasis Gallbladder wall thickening may be due to acute or chronic cholecystitis or ascites Focal approximately 1.7 cm area of diminished attenuation in the posterior mid left kidney; differential diagnosis includes pyelonephritis, infarcts, neoplasm Renal Ultrasound 04/07/21 09:32 IMPRESSION: 1. The lesion of concern at the posterior right kidney appears relatively anechoic but is poorly visualized without clearly defined peripheral wall or posterior acoustic enhancement which is suggestive but not diagnostic of a cyst. Would recommend further evaluation with pre and postcontrast MRI. Given the presence of metallic posterior spinal fusion instrumentation, additional nonfat saturated pre and postcontrast T1-weighted sequences might be helpful. Abdomen Ultrasound 04/09/21 12:58 IMPRESSION: 1. Minimal perihepatic ascites, insufficient to warrant therapeutic paracentesis. Labs Labs: Laboratory Results - last 24 hr 04/08/21 04/09/21 04/09/21 16:28 08:40 08:40 WBC 7.0 RBC 3.68 L Hgb 12.6 L Hct 37.2 L MCV 101.1 H MCH 34.2 H MCHC 33.9 RDW 13.8 Plt Count 102 L MPV 11.2 H % Immature Plt Fraction 5.1 Sodium 133 L Potassium 3.5 Chloride 106 Carbon Dioxide 24 Anion Gap 3 L BUN 13 Creatinine 0.50 L Estim Creat Clear Calc 177 Estimated GFR > 60 Glucose 160 H Calcium 7.8 L Stl Occult Blood (IFOB) Negative
--- NOTE | 2021-04-09 15:24 | PC.NURSE ---
Rohini Miles [employer] notified of peritoneal fluid growing coag neg staph and gram negative bacilli
--- NOTE | 2021-04-09 15:28 | WPDGICN ---
Assessment and Plan Assessment and plan (1) SBP (spontaneous bacterial peritonitis): Code(s): K65.2 - Spontaneous bacterial peritonitis Status: Acute Assessment and Plan: presentation consistent with SBP and E coli bacteremia on iv rocephin (reviewed sensitivities), will get IV albumin 25% (1.5g per KG body weight) and his renal function is normal will repeat liver enzymes tomorrow to calculate MELD score try to obtain more ascitic fluid not enough in ultrasound (2) E coli bacteremia: Code(s): R78.81 - Bacteremia; B96.20 - Unspecified Escherichia coli [E. coli] as the cause of diseases classified elsewhere Status: Acute Assessment and Plan: appropriately on iv antibiotics (3) Sepsis: Qualifiers: Sepsis acute organ dysfunction status: unspecified Sepsis type: sepsis due to unspecified organism Qualified Code(s): A41.9 - Sepsis, unspecified organism Code(s): A41.9 - Sepsis, unspecified organism Status: Acute (4) Chronic hepatitis C with cirrhosis: Code(s): B18.2 - Chronic viral hepatitis C; K74.60 - Unspecified cirrhosis of liver Status: Acute Assessment and Plan: he is already on epclusa at home and he is seeing GI doctor in [facility] (5) Elevated liver enzymes: Code(s): R74.8 - Abnormal levels of other serum enzymes Status: Acute GI Consult Note Consult date/time: 04/09/21 15:28 Reason for consult: E coli bacteremia, SBP, decompensated HCV cirrhosis HPI: Cornelio Pedroza is a 55 year old male with history of hypertension, dyslipidemia, 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 I met him 10/2020 when he was in the hospital and had paracentesis (no SBP), also performed EGD that showed PHG and erosive esophagitis. He is established with GI doctor at [facility] and currently being treated with epclusa. He came to hospital with new onset of severe abdominal pain and two days of intractable nausea and vomiting, also noted dark stools. He had blood cultures growing E coli, paracentesis also was consistent with SBP (nucleated cells 7800 with 64% neut, cloudy consistency). He is still having abdominal discomfort but better, also shortness of breath. He is not drinking alcohol anymore. Labs on admission Tbili 11, creatinine normal, inr 2, hb 12. CT scan reviewed. Review of Systems Constitutional: Constitutional: Reports weakness Eyes: Eyes: Denies blurry vision ENT: Reports Normal hearing present Cardiovascular: Cardiovascular: Denies chest pain Respiratory: Respiratory: Denies cough Gastrointestinal: Gastrointestinal: Reports abdominal pain, Reports nausea and Reports vomiting Genitourinary: Genitourinary: Denies dysuria Musculoskeletal: Musculoskeletal: Reports no additional musculoskeletal complaints Integumentary/Breasts: Skin/Breast: Denies dry skin Neurologic: Denies numbness Psychiatric: Psychiatric: Denies behavioral changes [facility] Past Medical History Medical History (Updated 04/09/21 @ 15:53 by Calvin Norton MD) Alcohol abuse Anxiety Arthritis Chronic hepatitis C Chronic hepatitis C with cirrhosis Cirrhosis of liver Dyslipidemia E coli bacteremia Elevated liver enzymes Erosive esophagitis Hypertension Nicotine dependence Normal echocardiogram October 2020: EF 60-65%, mild left atrial enlargement, mild minimally elevated E/e', mild mitral valve regurgitation Obstructive sleep apnea Portal hypertensive gastropathy Surgical History Surgical History (Updated 04/07/21 @ 07:51 by Josey Thompson DO) History of cardiac catheterization History of elbow surgery Right elbow surgery as a teenager to remove a bony cyst History of epidermal inclusion cyst excision Right tragus. History of fusion of cervical spine Following C4-C5 fracture followed a year later by replacement of hardware due to loosening of screws, followed later by fusion from the cervical spine through the lumbar spine History of lumbar fus
[2021-04-09] MEDS: ALBUMIN HUMAN 25% 25 GM/100 ML 100 ML IVPB ×6 (16:43→22:10)
[2021-04-09] MEDS: GABAPENTIN 400 MG CAPSULE 1200 MG PO (20:03)
--- NOTE | 2021-04-09 20:55 | CONS_ITS ---
DATE OF CONSULTATION: 04/09/2021 REASON FOR CONSULTATION: Bacteremia. HISTORY OF PRESENT ILLNESS: A 55-year-old male, who has been found to have cirrhosis that he is aware of for the last 7-8 months. This has been prescribed to chronic hepatitis C infection. He is currently on Epclusa. He has received approximately 2 months of his planned therapy. This is not under my direction. Liver transplantation has also been under consideration, but he is not on a transplant list. He presented to the hospital on April 07 or late on the evening of the with bilateral upper quadrant abdominal pain, abdominal distention, nausea and vomiting, melena, diarrhea, fecal incontinence. He also had weight gain and lower extremity edema. He had been receiving amoxicillin for infected right 2nd molar lower jaw and had completed this prior to admission. Otherwise, no recent antibiotics. No immunosuppressants. He also has been short of breath. ALLERGIES: NONE KNOWN. PRESENT MEDICATIONS: 1. Epclusa continue. 2. He is on ceftriaxone day #3 along with metronidazole. HABITS: Previously alcohol to excess. Smokes 1 or 2 cigarettes a day. Occasional marijuana. FAMILY HISTORY: Not pertinent to his present illness. SOCIAL HISTORY: Recently . Full-time job. 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 No family at the bedside currently. PAST MEDICAL HISTORY: Anxiety, arthritis, hyperlipidemia, previous esophageal varices, erosive esophagitis, hypertension, DIAN, prior cardiac cath, lumbar fusion, right wrist fracture with ORIF. REVIEW OF SYSTEMS: 14-point review otherwise negative. PHYSICAL EXAMINATION: GENERAL: This is a middle aged male, who appears actual age. No acute distress. VITAL SIGNS: Temperature on arrival 37.6, has since been afebrile, 50, 158/82, 20, 98% room air. SKIN: [place]. He has hemosiderin deposition on both distal legs into the feet. He has no rashes. EENT: Icteric mildly. Pupils equal, round, reactive. The oropharynx oral mucosa normal. NECK: No masses, thyromegaly, meningismus. LUNGS: Clear to auscultation and percussion. BACK: He has a sebaceous cyst, left inferior scapula area without evidence of infection. CARDIAC: Bradycardic, regular. Pulse 2+. No murmurs. ABDOMEN: Tender. No guarding. No masses. He has a fluid wave. Normal bowel sounds. EXTREMITIES: 1+ pitting edema distally. NEUROLOGIC: Awake, alert, oriented, appropriate. LABORATORY DATA: White count consistently normal, 7.0 today, hemoglobin 12.6, platelets are 102 earlier. Differential was normal. Prothrombin time 23.4. He has hyponatremia 133, BUN low, creatinine normal. Glucose 160. A1c 4.9%, bilirubin 7.1, down from 11.1, transaminases normal, alkaline phosphatase normal, albumin 2.7. Urinalysis, multiple abnormalities not suggestive of infection. Peritoneal fluid cloudy, 7900 red cells, 7800 white cells, 64% PMNs. His hepatitis studies in October showed a genotype 1a, viral load 6910 with A and B serology being nonreactive. RADIOLOGY: Abdominal ultrasound, perihepatic ascites. Abdomen pelvic CT showed cirrhosis findings with shotty periaortic and aortocaval lymph node enlargement suggestive of enterocolitis, cholelithiasis, gallbladder wall thickening. MICROBIOLOGY: From April 06, ascites fluid has grown light coagulase-negative staph and light gram-negative michael to be identified. Blood cultures 2/2 sets are relatively susceptible E coli. ASSESSMENT: 1. Escherichia coli bacteremia due to spontaneous bacterial peritonitis. Other sources of bacteremia are unlikely including , primary bloodstream, lower GI, biliary, pulmonary, skin, soft tissue. Other causes of his fever are also unlikely. 2. Coagulas
[2021-04-10] VITALS (14 sets, daily range): BP systolic 139–163; BP diastolic 73–88; PULSE 54–75; RESP 16–28; TEMP 35.9–37; O2SAT 91–97
--- NOTE | 2021-04-10 04:43 | ECG_ITS ---
Measurements Intervals [place] Rate: 62 P: 18 WI: 176 QRS: -20 QRSD: 109 T: 19 QT: 458 QTc: 468 Interpretive Statements SINUS RHYTHM INCOMPLETE RIGHT BUNDLE BRANCH BLOCK BORDERLINE R WAVE PROGRESSION, ANTERIOR LEADS BORDERLINE T WAVE ABNORMALITY- INFERIOR LEADS BASELINE ARTIFACT- I, II, III, V3 BORDERLINE ECG Electronically Signed On 04-10-2021 7:06:08 CDT by Carlitos Joseph D.O.
[2021-04-10] MEDS: NITROGLYCERIN SL 0.4 MG TABLET SUBLINGUAL ×2 (05:04→05:13)
--- NOTE | 2021-04-10 05:50 | PC.NURSE ---
After the second dose of nitro given at 0513 pt stated, I am feeling better, the chest pressure is going away. BP watched closely and charted. Refer to VITAL SIGNS.
[2021-04-10 06:02] LABS: Hemoglobin 11.4 g/dL (14.0-18.0); Immature Platelet Fraction Pct 5.6 % (0.9-11.2); Mean Corpuscular HGB Conc 34.5 g/dl (32-36); Mean Corpuscular Hemoglobin 34.3 pg (26-34); Mean Corpuscular Volume 99.4 fl (80-100); Mean Platelet Volume 11.3 fl (7.4-10.4); Platelet Count Result 84 k/mm3 (150-375); Red Blood Count 3.32 M/mm3 (4.6-6.20); Red Cell Distribution Width 13.6 % (11.5-14.5); White Blood Count 5.4 K/mm3 (4.5-10.0)
[2021-04-10 06:16] LABS: INR 2.3
[2021-04-10 06:19] LABS: Troponin I < 0.012 ng/mL (0.000-0.034)
[2021-04-10 06:41] LABS: Alanine Aminotransferase 24 U/L (4-50); Albumin Level 3.7 g/dL (3.5-5.1); Alkaline Phosphatase 100 U/L (38-126); Anion Gap 8 mmol/L (8-16); Aspartate Amino Transferase 47 U/L (17-59); Blood Urea Nitrogen 10 mg/dL (9-20); Calcium 8.5 mg/dL (8.4-10.2); Carbon Dioxide 23 mmol/L (22-30); Chloride 106 mmol/L (98-107); Estimated CRCL calculation 177 ml/min; Estimated Glomerular Filt Rate > 60; Glucose 92 mg/dL (65-110); Potassium 3.4 mmol/L (3.4-5.0); Sodium 137 mmol/L (137-145)
[2021-04-10] MEDS: PROPRANOLOL HCL 20 MG TABLET PO ×2 (08:03→20:40)
[2021-04-10] MEDS: oxyCODONE HCL (*CRX) 5 MG TAB IR PO ×3 (08:09→20:40)
[2021-04-10] MEDS: ONDANSETRON INJ 4 MG/2 ML VIAL IV PUSH ×2 (08:09→14:43)
--- NOTE | 2021-04-10 09:46 | WPDGIPROGNO ---
Subjective Date/time seen: 04/10/21 09:46 The patient is complaining of increased shortness of breath. He also has complaints of increased abdominal distention. No nausea or vomiting. Reports diarrhea of Dark water. No cough or sputum production. General: very pleasant patient in no acute distress. HEENT: Head was normocephalic sclerae is clear mouth without masses neck was supple. Heart: Rate rhythm regular without S3 or S4. Lungs: Decreased breath sounds right base with crackles. Abdomen: Distended with bowel sounds. Tender right lower and right upper quadrants. Neurologic: Cranial nerves 2 through 12 intact. No focal defects. No clonus. Musculoskeletal system: Revealed no joint tenderness or swelling no muscle atrophy. Extremities: Reveal no significant edema. Chronic venous stasis changes. Skin: Warm and dry with normal turgor. Mental status: intact. Patient is alert and oriented. Impression: E coli bacteremia etiology S BP? Right pleural effusion with compressive atelectasis. Consider underlying pneumonia. Abdominal pain And increased distention with diarrhea. Would certainly consider C diff in view of the antibiotic intake. Hepatitis C /alcoholic cirrhosis with complicating factors: On Epiclusa. LFTs elevated. Ascites. ? SBP. Portal hypertension. 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 Coagulopathy secondary to of synthetic dysfunction. GERD with erosive esophagitis. HTN. HLD. Tobacco abuse. History of alcohol abuse. DIAN. Recommendation: CT scan of the chest, abdomen and pelvis. Pulmonary consultation. Continue antibiotics. Check C diff. Repeat laboratory studies. Objective Data Vital Signs Vital Signs: Vital Signs - 24 hr 04/09/21 12:00 04/09/21 16:00 04/09/21 20:00 Temperature 36.6 C 36.4 C 36.1 C L Pulse Rate 50 L 58 L 67 Respiratory Rate 20 20 20 Blood Pressure 158/82 H 158/52 H 178/92 H Pulse Oximetry 98 98 93 04/09/21 20:59 04/09/21 22:29 04/10/21 00:00 Temperature 36.1 C L Pulse Rate 67 58 L Respiratory Rate 18 Blood Pressure 139/87 Pulse Oximetry 98 96 04/10/21 04:45 04/10/21 05:04 04/10/21 05:09 Temperature 36.1 C L Pulse Rate 63 57 L Respiratory Rate 28 H 24 H Blood Pressure 157/88 H 149/82 H 140/75 Pulse Oximetry 97 95 04/10/21 05:18 04/10/21 05:25 04/10/21 05:27 Temperature Pulse Rate Respiratory Rate Blood Pressure 140/73 Pulse Oximetry 91 95 04/10/21 08:03 04/10/21 09:11 Temperature Pulse Rate 75 Respiratory Rate 24 H Blood Pressure Pulse Oximetry 96 Intake/Output Intake/Output: Intake & Output 04/07/21 04/08/21 04/09/21 04/10/21 23:59 23:59 23:59 23:59 Intake Total 2970 1410 2430 530 Output Total 700 Balance 2270 1410 2430 530 Meds/Results Medications: Active Medications Generic Name Dose Route Start Last Admin Trade Name Freq PRN Reason Stop Dose Admin Gabapentin 1,200 mg 04/07/21 21:00 04/09/21 20:03 Gabapentin 400 Mg Capsule PO 1,200 mg HS JOHNNIE Administration Ceftriaxone Sodium 2 gm in 100 mls @ 200 mls/hr 04/07/21 23:00 04/10/21 00:15 Rocephin 2 Gm/D5w 100 Ml IVPB Infused Q24H JOHNNIE Infusion Nitroglycerin 0.4 mg 04/10/21 04:44 04/10/21 05:13 Nitroglycerin Sl 0.4 Mg Tablet SUBLINGUAL 0.4 mg Q5MIN PRN Administration Chest Pain Ondansetron HCl 4 mg 04/07/21 00:54 04/10/21 08:09 Ondansetron Inj 4 Mg/2 Ml Vial IV PUSH 4 mg Q6H PRN Administration Nausea And Vomiting Oxycodone HCl 5 mg 04/07/21 00:53 04/10/21 08:09 Oxycodone Hcl (*Crx) 5 Mg Tab Ir PO 5 mg TID PRN Administration Pain (Scale Score 7-10) Propranolol HCl 20 mg 04/07/21 09:00 04/10/21 08:03 Propranolol Hcl 20 Mg Tablet PO 20 mg Q12HR JOHNNIE Administration Radiology Results: ITS Impressions Abdomen/Pelvis CT 04/06/21 20:46 IMPRESSION: Cirrhosis, splenomegaly, varices, mild ascites Nonspe
[2021-04-10 11:08] LABS: Alanine Aminotransferase 25 U/L (4-50); Albumin Level 3.8 g/dL (3.5-5.1); Alkaline Phosphatase 99 U/L (38-126); Aspartate Amino Transferase 49 U/L (17-59); Bilirubin,Total 3.3 mg/dL (0.2-1.3); Free T4 Free Thyroxine 1.38 ng/mL (0.78-2.19); Magnesium 1.5 mg/dL (1.6-2.3); Phosphorus 3.4 mg/dL (2.5-4.5)
--- NOTE | 2021-04-10 14:00 | PM.IMPN ---
Progress Note: A&P Assessment and Plan (1) Enterocolitis: Code(s): K52.9 - Noninfective gastroenteritis and colitis, unspecified Status: Acute Assessment and Plan: CT A/P with fluid distended small-bowel and wall thickening suggesting enterocolitis, reported eating questionable beef, concerning for food poisoning Continue with IV antibiotics Rocephin and Flagyl Tolerating diet Supportive care (2) Cirrhosis of liver with ascites: Qualifiers: Hepatic cirrhosis type: unspecified hepatic cirrhosis Qualified Code(s): K74.60 - Unspecified cirrhosis of liver; R18.8 - Other ascites Code(s): K74.60 - Unspecified cirrhosis of liver; R18.8 - Other ascites Status: Acute Assessment and Plan: Per pt stage IV liver cirrhosis He is established with post closer, Dr. Baig ([facility]) S/p paracentesis on 04/06 which yielded 700 cc cloudy fluid Fluid cultures-->Coag negative Staphylococcus; Gram negative bacilli isolated Continue with IV abx as above while awaiting results Continue propranolol GI following, recommendations appreciated US-->Minimal perihepatic ascites, insufficient to warrant therapeutic paracentesis. CXR-->Little interval change since 12/30/2020, discussed with pulmonary, monitor for now CT chest, A/P pending Will give dose of Lasix IV 20 mg GI following, recommendations appreciated ID consulted (3) Positive blood cultures: Code(s): R78.81 - Bacteremia Status: Acute Assessment and Plan: Suspected source of infection is enterocolitis vs spontaneous bacterial peritonitis BC +Escherichia Coli Continue with IV Rocephin 2 g Await final culture results for fluid GI and ID consult consulted (4) Thickening of wall of gallbladder: Code(s): K82.8 - Other specified diseases of gallbladder Status: Acute Assessment and Plan: CT abdomen/pelvis showed gallbladder wall thickening which may be due to acute or chronic cholecystitis vs ascites No signs or symptoms to suggest cholecystitis Denies RUQ pain, tolerating diet AST normalized Total bilirubin is elevated compared to last hospital stay 3 months prior, trending down Abd US reviewed GI consulted (5) Abnormal finding on diagnostic imaging of left kidney: Code(s): R93.422 - Abnormal radiologic findings on diagnostic imaging of left kidney Status: Acute Assessment and Plan: CT showed focal 1.7 cm area of diminished attenuation in the posterior mid left kidney Follow-up renal ultrasound poorly visualized but suggestive of renal cyst Plan for follow up MRI pre and postcontrast (6) Sepsis: Qualifiers: Sepsis type: sepsis due to unspecified organism Sepsis acute organ dysfunction status: unspecified Qualified Code(s): A41.9 - Sepsis, unspecified organism Code(s): A41.9 - Sepsis, unspecified organism Status: Acute Assessment and Plan: Likely multifactorial; 2/2 bacteremia; and possible spontaneous bacterial peritonitis On admission with tachycardia, tachypnea, and very low-grade fever at 99.7 BC +Escherichia Coli Continue with Rocephin ID consulted Plan as above (7) Hypertension: Code(s): I10 - Essential (primary) hypertension Status: Acute Assessment and Plan: Continue with propranolol Monitor BP trends Consider addition of antihypertensive agent as needed (8) Chronic hepatitis C: Code(s): B18.2 - Chronic viral hepatitis C Status: Acute Assessment and Plan: Continue home Epclusa Subjective Date/time seen: 04/10/21 14:00 Interval history: pt seen and evaluated; no acute events overnight; continues to feel SOB with non productive cough. Afebrile, no leukocytosis Review of Systems Review of Systems: All systems reviewed & are unremarkable except as noted in HPI and below Exam Const: General: no acute distress, alert and awake Orientation/consciousness: patient oriented x3 HENMT: Head: normoce
[2021-04-10] MEDS: FUROSEMIDE INJ 40 MG/4 ML VIAL 20 MG IV PUSH (14:39)
[2021-04-10] MEDS: GABAPENTIN 400 MG CAPSULE 1200 MG PO (20:39)
[2021-04-11] VITALS (11 sets, daily range): BP systolic 148–177; BP diastolic 83–97; PULSE 51–78; RESP 14–20; TEMP 36.1–37.1; O2SAT 93–97
[2021-04-11] MEDS: oxyCODONE HCL (*CRX) 5 MG TAB IR PO ×3 (06:25→23:10)
--- NOTE | 2021-04-11 08:36 | PM.IMPN ---
Progress Note: A&P Assessment and Plan (1) Enterocolitis: Code(s): K52.9 - Noninfective gastroenteritis and colitis, unspecified Status: Acute Assessment and Plan: CT A/P with fluid distended small-bowel and wall thickening suggesting enterocolitis, reported eating questionable beef, concerning for food poisoning Continue with IV antibiotics Rocephin and Flagyl Tolerating diet Supportive care (2) Cirrhosis of liver with ascites: Qualifiers: Hepatic cirrhosis type: unspecified hepatic cirrhosis Qualified Code(s): K74.60 - Unspecified cirrhosis of liver; R18.8 - Other ascites Code(s): K74.60 - Unspecified cirrhosis of liver; R18.8 - Other ascites Status: Acute Assessment and Plan: Per pt stage IV liver cirrhosis He is established with human resources hr representative, Dr. Baig ([facility]) S/p paracentesis on 04/06 which yielded 700 cc cloudy fluid Fluid cultures-->Coag negative Staphylococcus; Gram negative bacilli isolated Continue with IV abx as above while awaiting results Continue propranolol GI following, recommendations appreciated US-->Minimal perihepatic ascites, insufficient to warrant therapeutic paracentesis. CXR-->Little interval change since 12/30/2020, discussed with pulmonary, monitor for now CT chest, A/P-->Cirrhosis, portal hypertension, esophageal and abdominal varices Splenomegaly Will give dose of Lasix IV 20 mg GI following, recommendations appreciated ID consulted (3) Positive blood cultures: Code(s): R78.81 - Bacteremia Status: Acute Assessment and Plan: Suspected source of infection is enterocolitis vs spontaneous bacterial peritonitis BC +Escherichia Coli Continue with IV Rocephin 2 g Await final culture results for fluid GI and ID consult consulted (4) Thickening of wall of gallbladder: Code(s): K82.8 - Other specified diseases of gallbladder Status: Acute Assessment and Plan: CT abdomen/pelvis showed gallbladder wall thickening which may be due to acute or chronic cholecystitis vs ascites No signs or symptoms to suggest cholecystitis Denies RUQ pain, tolerating diet AST normalized Total bilirubin is elevated compared to last hospital stay 3 months prior, trending down Abd US reviewed GI consulted (5) Abnormal finding on diagnostic imaging of left kidney: Code(s): R93.422 - Abnormal radiologic findings on diagnostic imaging of left kidney Status: Acute Assessment and Plan: CT showed focal 1.7 cm area of diminished attenuation in the posterior mid left kidney Follow-up renal ultrasound poorly visualized but suggestive of renal cyst Plan for follow up MRI pre and postcontrast (6) Sepsis: Qualifiers: Sepsis acute organ dysfunction status: unspecified Sepsis type: sepsis due to unspecified organism Qualified Code(s): A41.9 - Sepsis, unspecified organism Code(s): A41.9 - Sepsis, unspecified organism Status: Acute Assessment and Plan: Likely multifactorial; 2/2 bacteremia; and possible spontaneous bacterial peritonitis On admission with tachycardia, tachypnea, and very low-grade fever at 99.7 BC +Escherichia Coli Continue with Rocephin ID consulted Plan as above (7) Hypertension: Code(s): I10 - Essential (primary) hypertension Status: Acute Assessment and Plan: Continue with propranolol Monitor BP trends Consider addition of antihypertensive agent as needed (8) Chronic hepatitis C: Code(s): B18.2 - Chronic viral hepatitis C Status: Acute Assessment and Plan: Continue home Epclusa (9) Pleural effusion on right: Code(s): J90 - Pleural effusion, not elsewhere classified Status: Acute Assessment and Plan: CT A/P-->Very large right pleural effusion with compressive atelectasis of the middle and particularly right lower lobe S/p Lasix 20 mg IVP, will give 40 po Duo nebs scheduled NPO for TC in a.m. Check ECHO Follow lab
[2021-04-11] MEDS: PROPRANOLOL HCL 20 MG TABLET PO ×2 (08:54→19:55)
[2021-04-11] MEDS: FUROSEMIDE 40 MG TABLET PO (08:54)
--- NOTE | 2021-04-11 11:51 | WPDGIPROGNO ---
Progress Note: A&P Assessment and Plan (1) Chronic hepatitis C with cirrhosis: Code(s): B18.2 - Chronic viral hepatitis C; K74.60 - Unspecified cirrhosis of liver <Anu Flores APRN - Last Filed: 04/11/21 11:59> Status: Acute <Anu Flores APRN - Last Filed: 04/11/21 11:59> Assessment and Plan: Impression: 1. E coli bacteremia etiology SBP? 2. Right pleural effusion with compressive atelectasis. Consider underlying pneumonia. 3. Abdominal pain with improvement of abdominal distension. CT C/A/P showed no ascites or acute process 4. Hepatitis C /alcoholic cirrhosis with complicating factors: On Epclusa, Genotype 1A. LFTs remain elevated SBP with no ascites Portal hypertension. 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 Coagulopathy secondary to of synthetic dysfunction. 5. GERD with erosive esophagitis. HTN. HLD. Tobacco abuse. History of alcohol abuse. DIAN. Recommendation: Pulmonary consultation for large right pleural effusion Continue antibiotics, appreciate ID recs Check C diff-pending Fractionate Bilirubin. Check hepatic function panal Add Spirolactone 50 mg daily Low Salt Diet-2 Grams <Anu Flores APRN - Last Filed: 04/11/21 11:59> (2) SBP (spontaneous bacterial peritonitis): Code(s): K65.2 - Spontaneous bacterial peritonitis <Anu Flores APRN - Last Filed: 04/11/21 11:59> Status: Acute <Anu Flores APRN - Last Filed: 04/11/21 11:59> (3) Elevated liver enzymes: Code(s): R74.8 - Abnormal levels of other serum enzymes <Anu Flores APRN - Last Filed: 04/11/21 11:59> Status: Acute <Anu Flores APRN - Last Filed: 04/11/21 11:59> Subjective Date/time seen: 04/11/21 11:51 Still complaining of SOB and gasping for air and unable to walk to bathroom. He is tolerating PO. Still having RUQ and RLQ abdominal pain but distension has improved he states. He is having clear urine. Denies melena or hematochezia. <Anu Welch SandraTAL richN - Last Filed: 04/11/21 11:59> Review of Systems Review of Systems: All systems reviewed & are unremarkable except as noted in HPI and below <Anu WagnerKandis SandraYAKELIN rich - Last Filed: 04/11/21 11:59> Gastrointestinal: Gastrointestinal: Reports as per HPI <Anu LincolnmelTALN Last Filed: 04/11/21 11:59> Exam Const: General: cooperative, healthy appearing, comfortable, no acute distress and awake <Anu WagnerKandis Sandra, HEARTH FEEDER - Last Filed: 04/11/21 11:59> Orientation/consciousness: patient oriented x3 <Anulea Flores APRN - Last Filed: 04/11/21 11:59> Eyes: Sclera: sclerae normal (icteric ) <Anu WagnerKandis Flores HEARTH FEEDER Last Filed: 04/11/21 11:59> Resp: Effort & Inspection: tachypneic <Anulea Flores APRN - Last Filed: 04/11/21 11:59> Auscultation: rhonchi right lower and diminished lung sounds diffuse <Anu Lincolnhilario HEARTH FEEDER Last Filed: 04/11/21 11:59> Cardio: Rate: regular rate <Anu M. SandraYAKELIN rich - Last Filed: 04/11/21 11:59> Rhythm: regular rhythm <Anu Yuri Flores APRN Last Filed: 04/11/21 11:59> Heart sounds: S1 normal heart sound present, S2 normal heart sound present, no gallops, no murmurs and no rubs <Anulea Flores APRN Last Filed: 04/11/21 11:59> GI: Inspection: normal to inspection <Anulea Flores APRN - Last Filed: 04/11/21 11:59> GI Palp: Yes abdominal tenderness (RLQ), Yes Soft to palpation, No Guarding due to palpation present (GI), No Rigid due to palpation and Yes Hepatosplenomegaly present <Anulea Flores APRN - Last Filed: 04/11/21 11:59> Auscultation: normal bowel sounds <Anu Flores APRN - Last Filed: 04/11/21 11:59> Rectal Exam: deferred <Anu Flores APRN - Last Filed: 04/11/21 11:59> Skin: General skin exam: normal color <Anu Flores APRN - Last Filed: 04/11/21 11:59> Neuro: General: patient oriented x3 <Anu Flores APRN - Last Filed: 04/11/21 11:59> Objective Data Vi
[2021-04-11 14:18] LABS: Amylase 95 U/L (30-110); Lactate Dehydrogenase 592 U/L (313-618)
[2021-04-11 14:19] LABS: Cholesterol 183 mg/dL (0-200); Glucose 122 mg/dL (65-110); Triglycerides 101 mg/dL (<150)
[2021-04-11 14:28] LABS: NT Pro B Type Natriuretic Pept 488 pg/mL (5-100)
[2021-04-11 14:28] LABS: Prothrombin Time 22.2 Seconds (11.1-14.7)
--- NOTE | 2021-04-11 18:02 | PCRCNOTE ---
Window of time for administration has passed. See next scheduled administration.
[2021-04-11] MEDS: GABAPENTIN 400 MG CAPSULE 1200 MG PO (19:56)
[2021-04-11 20:21] LABS: Albumin Peritoneal Fluid 0.4 g/dL
[2021-04-11] MEDS: ALBUTEROL SULFATE NEB 2.5 MG/0.5 ML INH INHALATION (21:26)
[2021-04-11] MEDS: IPRATROPIUM BR 0.02% INH SOLN 0.5 MG/2.5 ML VIAL INHALATION (21:27)
[2021-04-12] VITALS (8 sets, daily range): BP systolic 114–157; BP diastolic 73–90; PULSE 51–93; RESP 16–22; TEMP 36.1–36.7; O2SAT 94–98
--- NOTE | 2021-04-12 | ECHO_ITS ---
Patient Info Name: Cornelio Pedroza Age: 55 years : 1965 Gender: Male Ht: 73 in Wt: 243 lbs BSA: 2.41 m2 HR: 52 bpm BP: 114 / 73 mmHg Heart Rhythm: Sinus Rhythm Technical Quality: Good Exam Date: 04/12/2021 9:52 AM Exam Location: [facility] Patient Status: Inpatient Admit Date: 04/06/2021 Staff Ordering Physician: Rohini Miles [employer] Mill Tender: Edelmira Trujillo RDCS Attending Provider: Cyn Lemus PA-C Referring Physician: Jd SANDERS; Exam Type: CA echo doppler color flow Study Info Indications J90 - Pleural effusion, not elsewhere classified Complete two-dimensional, color flow and Doppler transthoracic echocardiogram is performed. Summary 1. Complete two-dimensional, color flow and Doppler transthoracic echocardiogram is performed. 2. Left ventricular systolic function is normal, estimated at 60-65%. 3. The left ventricular diastolic function is grade I diastolic dysfunction. 4. Left atrial chamber dimension is mildly enlarged. 5. There is mild aortic valve sclerosis. Left Ventricle Left ventricular chamber dimension is normal. Left ventricular systolic function is normal, estimated at 60-65%. The left ventricular diastolic function is grade I diastolic dysfunction. Right Ventricle Right ventricular chamber dimension is normal. Left Atria Left atrial chamber dimension is mildly enlarged. Right Atria Right atrial chamber dimension is normal. Aortic Valve There is mild aortic valve sclerosis. Pulmonic Valve The pulmonic valve is normal. Mitral Valve The mitral valve has normal leaflets. Tricuspid Valve The tricuspid valve leaflets are normal. Pericardium/Pleural The pericardium appears normal. Aorta The aortic root size at the sinus of Valsalva is normal. Left Ventricular Outflow Tract Name Value Normal LVOT 2D LVOT Diameter 2.0 cm LVOT Doppler LVOT Peak Gradient 5 mmHg LVOT Mean Gradient 2 mmHg LVOT VTI 25 cm LVOT VTI/AV VTI Ratio 0.6 LVOT Stroke Volume 81 ml LVOT CO 3.5 l/min LVOT CI 1.5 l/min/m2 Pulmonic Valve Name Value Normal RVOT Doppler RVOT Peak Gradient 4 mmHg PV Doppler PV Peak Gradient 5 mmHg Mitral Valve Name Value Normal MV Doppler MV Decel Jenkins 345 cm/s2
--- NOTE | 2021-04-12 02:14 | PCRCNOTE ---
Pt refused 02:00 nebulizer treatment. Stated that earlier treatment made him cough so much he was sore. Pt was advised to have the nurse call if he changes his mind.
[2021-04-12 05:57] LABS: Hematocrit 36.2 % (42.0-52.0); Hemoglobin 12.4 g/dL (14.0-18.0); Immature Platelet Fraction Pct 6.2 % (0.9-11.2); Mean Corpuscular HGB Conc 34.3 g/dl (32-36); Mean Corpuscular Hemoglobin 34.8 pg (26-34); Mean Corpuscular Volume 101.7 fl (80-100); Mean Platelet Volume 11.2 fl (7.4-10.4); Platelet Count Result 105 k/mm3 (150-375); Red Blood Count 3.56 M/mm3 (4.6-6.20); Red Cell Distribution Width 14.4 % (11.5-14.5); White Blood Count 6.6 K/mm3 (4.5-10.0)
[2021-04-12 06:07] LABS: INR 2.1; Prothrombin Time 23.3 Seconds (11.1-14.7)
[2021-04-12 06:08] LABS: Alanine Aminotransferase 27 U/L (4-50); Albumin Level 3.4 g/dL (3.5-5.1); Alkaline Phosphatase 97 U/L (38-126); Anion Gap 4 mmol/L (8-16); Aspartate Amino Transferase 54 U/L (17-59); Bilirubin,Total 4.2 mg/dL (0.2-1.3); Blood Urea Nitrogen 11 mg/dL (9-20); Calcium 8.5 mg/dL (8.4-10.2); Carbon Dioxide 32 mmol/L (22-30); Chloride 97 mmol/L (98-107); Estimated CRCL calculation 150 ml/min; Estimated Glomerular Filt Rate > 60; Glucose 105 mg/dL (65-110); Potassium 3.6 mmol/L (3.4-5.0); Sodium 133 mmol/L (137-145)
[2021-04-12] MEDS: oxyCODONE HCL (*CRX) 5 MG TAB IR PO ×2 (08:14→19:06)
[2021-04-12] MEDS: PROPRANOLOL HCL 20 MG TABLET PO (08:14)
[2021-04-12] MEDS: SPIRONOLACTONE 50 MG TABLET PO (08:15)
[2021-04-12] MEDS: ALBUTEROL SULFATE NEB 2.5 MG/0.5 ML INH INHALATION (08:28)
[2021-04-12] MEDS: IPRATROPIUM BR 0.02% INH SOLN 0.5 MG/2.5 ML VIAL INHALATION (08:28)
--- NOTE | 2021-04-12 08:59 | PM.CNPUL ---
Assessment and Plan Assessment and plan (1) Pleural effusion on right: Code(s): J90 - Pleural effusion, not elsewhere classified Status: Acute Assessment and Plan: Patient with worsening dyspnea on exertion for 1 month, dry cough and intermittent wheezing noticed on this admission. Patient has a large right pleural effusion and I agree with right thoracentesis with complete drainage and sending pleural chemistries, cell count, cultures and cytology for diagnostic purposes. Currently the patient is on room air with saturations 94%. Serum bicarb on presentation was 22. Patient does have minimal apical predominant paraseptal emphysema on a CT scan of the chest with a tobacco history and he may have COPD. Patient states that the albuterol and ipratropium nebulizers made him worse and caused him to have violent coughing. At this time will discontinue these nebulizers. I feel no need to start systemic or inhaled corticosteroids at this time. Will re-evaluate patient after thoracentesis to see if his wheezing and symptoms persist. Will reassess pleural effusion after thoracentesis as patient may require repeat procedure an attempt to drain the majority of this fluid. Will follow with you. History of Present Illness History of Present Illness Consult date: 04/12/21 Requesting physician: Rohini Miles APN-C Reason for consult: dyspnea Chief complaint: abdominal pain, cirrhosis with ascites Narrative: this is a new pulmonary consultation for shortness of breath 55-year-old male with a history of cirrhosis from hepatitis C and alcohol use who presented to the hospital on 04/06 with a 1 month history of progressively worsening shortness of breath and dyspnea on exertion, dry cough and intermittent wheezing. Patient had acute worsening of his vomiting and abdominal pain and was admitted to the hospital and had a paracentesis with 700 mL of fluid removed andfound to have E coli bacteremia and ascites fluid has grown out coag-negative Staph coccus and gram-negative bacilli to be identified. Patient has been treated with ceftriaxone and says that the vomiting and abdominal pain are improved. CT scan of the abdomen showed that he had a moderate size right pleural effusion on 04/06/2021 and a chest x-ray on 12/30/2020 showed a right pleural effusion where as a CT angiogram of the chest on 10/20/2020 showed no right pleural effusion. Patient had a CT chest abdomen pelvis on 04/10 and the moderate size right pleural effusion is now a large right-sided pleural effusion. patient states that over the last month he has developed increasing shortness of breath which occurs mainly with any activity but also at rest. Prior to 1 month ago he had no shortness of breath. Patient states that he has no pedal edema no history of asthma or COPD and no chest pain. He also had a dry cough without any phlegm production or hemoptysis. With the patient was feeling well he said he could walk 2 blocks but would have to stop because of back pain not because of shortness of breath. Patient has a tobacco history from age 14-9 months ago at age 54-,1/2 pack per day for total of 20 pack years. Patient smoked marijuana starting 1 year ago about 3 times a month and his last use was 1 month ago. Patient denies vaping, cocaine, heroin, or methamphetamine. 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 Patient has never worked in the [employer], denies [employer] blasting, welding, asbestos work. 04/12 Patient tells me today he has no chest pain or abdominal pain. He does have dyspnea on exertion. Currently is saturations are 94% on room air. Overall he is better than when he came to the hospital though he remains with shortness of breath. Review of Systems Review of Systems: All systems reviewed & are unremarkable except as noted in HPI and below Eyes: Eyes: Reports no additional eye complaints
--- NOTE | 2021-04-12 09:33 | PM.IMPN ---
Progress Note: A&P Assessment and Plan (1) Enterocolitis: Code(s): K52.9 - Noninfective gastroenteritis and colitis, unspecified Status: Acute Assessment and Plan: CT A/P with fluid distended small-bowel and wall thickening suggesting enterocolitis, reported eating questionable beef, concerning for food poisoning Continue with IV antibiotics Rocephin and Flagyl Tolerating diet Supportive care (2) Cirrhosis of liver with ascites: Qualifiers: Hepatic cirrhosis type: unspecified hepatic cirrhosis Qualified Code(s): K74.60 - Unspecified cirrhosis of liver; R18.8 - Other ascites Code(s): K74.60 - Unspecified cirrhosis of liver; R18.8 - Other ascites Status: Acute Assessment and Plan: Per pt stage IV liver cirrhosis He is established with waste specialist, Dr. Baig ([facility]) S/p paracentesis on 04/06 which yielded 700 cc cloudy fluid Fluid cultures-->Coag negative Staphylococcus; Gram negative bacilli isolated Continue with IV abx as above while awaiting results Continue propranolol GI following, recommendations appreciated US-->Minimal perihepatic ascites, insufficient to warrant therapeutic paracentesis. CXR-->Little interval change since 12/30/2020, discussed with pulmonary, monitor for now CT chest, A/P-->Cirrhosis, portal hypertension, esophageal and abdominal varices Splenomegaly S/p Lasix GI following, recommendations appreciated ID consulted (3) Positive blood cultures: Code(s): R78.81 - Bacteremia Status: Acute Assessment and Plan: Suspected source of infection is enterocolitis vs spontaneous bacterial peritonitis BC +Escherichia Coli Continue with IV Rocephin 2 g Await final culture results for fluid GI and ID consult consulted (4) Thickening of wall of gallbladder: Code(s): K82.8 - Other specified diseases of gallbladder Status: Acute Assessment and Plan: CT abdomen/pelvis showed gallbladder wall thickening which may be due to acute or chronic cholecystitis vs ascites No signs or symptoms to suggest cholecystitis Denies RUQ pain, tolerating diet AST normalized Total bilirubin is elevated compared to last hospital stay 3 months prior, trending down Abd US reviewed GI consulted (5) Abnormal finding on diagnostic imaging of left kidney: Code(s): R93.422 - Abnormal radiologic findings on diagnostic imaging of left kidney Status: Acute Assessment and Plan: CT showed focal 1.7 cm area of diminished attenuation in the posterior mid left kidney Follow-up renal ultrasound poorly visualized but suggestive of renal cyst Plan for follow up MRI pre and postcontrast (6) Sepsis: Qualifiers: Sepsis type: sepsis due to unspecified organism Sepsis acute organ dysfunction status: unspecified Qualified Code(s): A41.9 - Sepsis, unspecified organism Code(s): A41.9 - Sepsis, unspecified organism Status: Acute Assessment and Plan: Likely multifactorial; 2/2 bacteremia; and possible spontaneous bacterial peritonitis On admission with tachycardia, tachypnea, and very low-grade fever at 99.7 BC +Escherichia Coli Continue with Rocephin ID consulted Plan as above (7) Hypertension: Code(s): I10 - Essential (primary) hypertension Status: Acute Assessment and Plan: Continue with propranolol Monitor BP trends Consider addition of antihypertensive agent as needed (8) Chronic hepatitis C: Code(s): B18.2 - Chronic viral hepatitis C Status: Acute Assessment and Plan: Continue home Epclusa (9) Pleural effusion on right: Code(s): J90 - Pleural effusion, not elsewhere classified Status: Acute Assessment and Plan: CT A/P-->Very large right pleural effusion with compressive atelectasis of the middle and particularly right lower lobe S/p Lasix 20 mg IVP, 40 po, will give 40 mg IVP today Duo nebs stopped per pulm NPO at midnight for TC in a.m. IR recom
--- NOTE | 2021-04-12 10:15 | PC.NURSE ---
Received call from radiologist Dr. Jarrell stating he would prefer INR be less than 1.5 to do thoracentesis. Per Dr. Jarrell, he would like hospitalist notified in case Vitamin K needs to be given. Will reattempt thoracentesis tomorrow if labwork improved. Notified Rohini Diaz SLOT KEY PERSON of same.
[2021-04-12] MEDS: FUROSEMIDE INJ 40 MG/4 ML VIAL IV PUSH (12:53)
[2021-04-12] MEDS: PHYTONADIONE ADULT INJ 10 MG in DEXTROSE 5% IN WATER 50 ML 100 MG IVPB (17:02)
--- NOTE | 2021-04-12 17:13 | WPDGIPROGNO ---
Progress Note: A&P Assessment and Plan (1) SBP (spontaneous bacterial peritonitis): Code(s): K65.2 - Spontaneous bacterial peritonitis Status: Acute Assessment and Plan: s/p iv albumin and currently on antibiotics, doing better will discontinue beta-blockers in setting of SBP (2) E coli bacteremia: Code(s): R78.81 - Bacteremia; B96.20 - Unspecified Escherichia coli [E. 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, tomorrow thoracentesis with fluid sample BUT do not place chest tube (relatively contraindicated in cirrhosis) will increase dose of diuretics (normal lytes and renal function), continue with 2g na diet (5) Sepsis: Qualifiers: Sepsis acute organ dysfunction status: unspecified Sepsis type: sepsis due to unspecified organism Qualified Code(s): A41.9 - Sepsis, unspecified organism Code(s): A41.9 - Sepsis, unspecified organism Status: Acute (6) Elevated liver enzymes: Code(s): R74.8 - Abnormal levels of other serum enzymes Status: Acute (7) Coagulopathy: Code(s): D68.9 - Coagulation defect, unspecified Status: Acute Assessment and Plan: from cirrhosis, inr 2.1 will give vit K for 3 days Subjective Date/time seen: 04/12/21 17:13 Interval history: abdomen is better but still with SOB Review of Systems Review of Systems: All systems reviewed & are unremarkable except as noted in HPI and below Exam Const: General: cooperative and healthy appearing Orientation/consciousness: oriented to person, oriented to place and oriented to time HENMT: Head: normal to inspection Ears: hearing grossly normal bilaterally Mouth: Yes Normal oral and palatal mucosa present Throat: tonsils absent Eyes: General: appearance normal, both eyes and all related structures Neck: Neck: normal visual inspection Chest: Chest palpation & inspection: normal inspection of the chest Resp: Effort & Inspection: normal respiratory effort and able to speak in complete sentences Auscultation: no crackles, no rales, no rhonchi, no wheezes and diminished lung sounds (right base) Cardio: Jugular venous distension: no JVD GI: Inspection: normal to inspection GI Palp: Yes Soft to palpation and No Guarding due to palpation present (GI) Auscultation: normal bowel sounds Other: less distended Skin: General skin exam: normal color Neuro: General: oriented to person, oriented to place and oriented to time Speech: normal speech Motor exam (neuro): Normal motor muscle tone present throughout Extrem: General: normal to inspection and no pedal edema Psych: Appearance: grossly normal Mental Status: mental status grossly normal Objective Data Vital Signs Vital Signs: Vital Signs - 24 hr 04/11/21 19:55 04/11/21 20:00 04/11/21 21:28 Temperature 98.7 F Pulse Rate 78 56 L 58 L Respiratory Rate 20 20 Blood Pressure 160/83 H Pulse Oximetry 97 04/11/21 21:36 04/12/21 01:45 04/12/21 05:57 Temperature 98.0 F 97.6 F Pulse Rate 56 L 51 L 52 L Respiratory Rate 20 16 16 Blood Pressure 133/75 114/73 Pulse Oximetry 95 94 04/12/21 08:14 04/12/21 08:28 04/12/21 08:40 Temperature Pulse Rate 56 L 60 93 Respiratory Rate 22 H 20 Blood Pressure Pulse Oximetry 95 95 04/12/21 14:00 Temperature 97.1 F L Pulse Rate 53 L Respiratory Rate 16 Blood Pressure 154/79 H Pulse Oximetry 97 Intake/Output Intake/Output: Intake & Output 04/09/21 04/10/21 04/11/21 04/12/21 23:59 23:59 23:59 23:59 Intake Total 2430 1260 112
[2021-04-12] MEDS: PHYTONADIONE 5 MG TABLET 10 MG PO (19:04)
[2021-04-12] MEDS: GABAPENTIN 400 MG CAPSULE 1200 MG PO (20:53)
[2021-04-13] VITALS (16 sets, daily range): BP systolic 121–160; BP diastolic 72–90; PULSE 50–64; RESP 14–18; TEMP 36.1–37; O2SAT 93–100; BMI 32.1
[2021-04-13] MEDS: oxyCODONE HCL (*CRX) 5 MG TAB IR PO ×3 (05:28→20:55)
[2021-04-13 05:52] LABS: Hematocrit 35.8 % (42.0-52.0); Hemoglobin 12.5 g/dL (14.0-18.0); Immature Platelet Fraction Pct 5.5 % (0.9-11.2); Mean Corpuscular HGB Conc 34.9 g/dl (32-36); Mean Corpuscular Hemoglobin 35.2 pg (26-34); Mean Corpuscular Volume 100.8 fl (80-100); Mean Platelet Volume 10.6 fl (7.4-10.4); Platelet Count Result 101 k/mm3 (150-375); Red Blood Count 3.55 M/mm3 (4.6-6.20); Red Cell Distribution Width 13.9 % (11.5-14.5); White Blood Count 6.1 K/mm3 (4.5-10.0)
[2021-04-13 05:58] LABS: Prothrombin Time 22.4 Seconds (11.1-14.7)
[2021-04-13 06:16] LABS: Anion Gap 7 mmol/L (8-16); Blood Urea Nitrogen 11 mg/dL (9-20); Calcium 8.3 mg/dL (8.4-10.2); Carbon Dioxide 28 mmol/L (22-30); Chloride 102 mmol/L (98-107); Estimated CRCL calculation 177 ml/min; Estimated Glomerular Filt Rate > 60; Glucose 97 mg/dL (65-110); Potassium 3.1 mmol/L (3.4-5.0); Sodium 137 mmol/L (137-145)
[2021-04-13] MEDS: SPIRONOLACTONE 50 MG TABLET 100 MG PO (08:41)
[2021-04-13] MEDS: FUROSEMIDE 40 MG TABLET PO (08:42)
--- NOTE | 2021-04-13 08:49 | PM.PNPUL ---
Progress Note: A&P Assessment and Plan (1) Pleural effusion on right: Code(s): J90 - Pleural effusion, not elsewhere classified Status: Acute Assessment and Plan: 04/12 Patient with worsening dyspnea on exertion for 1 month, dry cough and intermittent wheezing noticed on this admission. Patient has a large right pleural effusion and I agree with right thoracentesis with complete drainage and sending pleural chemistries, cell count, cultures and cytology for diagnostic purposes. Currently the patient is on room air with saturations 94%. Serum bicarb on presentation was 22. Patient does have minimal apical predominant paraseptal emphysema on a CT scan of the chest with a tobacco history and he may have COPD. Patient states that the albuterol and ipratropium nebulizers made him worse and caused him to have violent coughing. At this time will discontinue these nebulizers. I feel no need to start systemic or inhaled corticosteroids at this time. Will re-evaluate patient after thoracentesis to see if his wheezing and symptoms persist. Will reassess pleural effusion after thoracentesis as patient may require repeat procedure an attempt to drain the majority of this fluid. 04/13 patient unchanged clinically and attempting to correct INR so that he can undergo a thoracentesis. Spoke with ultrasound and INR goal less than 1.5. received vitamin K IV and p.o. and to receive FFP per hospitalist team. Will check chest x-ray today. Will follow with you. Subjective Date/time seen: 04/13/21 08:49 Interval history: 55-year-old male with a history of cirrhosis from hepatitis C and alcohol use who presented to the hospital on 04/06 with a 1 month history of progressively worsening shortness of breath and dyspnea on exertion, dry cough and intermittent wheezing. Patient had acute worsening of his vomiting and abdominal pain and was admitted to the hospital and had a paracentesis with 700 mL of fluid removed andfound to have E coli bacteremia and ascites fluid has grown out coag-negative Staph coccus and gram-negative bacilli to be identified. Patient has been treated with ceftriaxone and says that the vomiting and abdominal pain are improved. CT scan of the abdomen showed that he had a moderate size right pleural effusion on 04/06/2021 and a chest x-ray on 12/30/2020 showed a right pleural effusion where as a CT angiogram of the chest on 10/20/2020 showed no right pleural effusion. Patient had a CT chest abdomen pelvis on 04/10 and the moderate size right pleural effusion is now a large right-sided pleural effusion. patient states that over the last month he has developed increasing shortness of breath which occurs mainly with any activity but also at rest. Prior to 1 month ago he had no shortness of breath. Patient states that he has no pedal edema no history of asthma or COPD and no chest pain. He also had a dry cough without any phlegm production or hemoptysis. With the patient was feeling well he said he could walk 2 blocks but would have to stop because of back pain not because of shortness of breath. Patient has a tobacco history from age 14-9 months ago at age 54-,1/2 pack per day for total of 20 pack years. Patient smoked marijuana starting 1 year ago about 3 times a month and his last use was 1 month ago. Patient denies vaping, cocaine, heroin, or methamphetamine. 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 Patient has never worked in the [employer], denies [employer], welding, asbestos work. 04/12 Patient tells me today he has no chest pain or abdominal pain. He does have dyspnea on exertion. Currently is saturations are 94% on room air. Overall he is better than when he came to the hospital though he remains with shortness of breath. INR 2.1. Given vitamon K 10 IV and 10 PO. 04/13 Patient is unchanged from a respiratory viewpoint. Room air saturations 94%
[2021-04-13] MEDS: POTASSIUM CHLORIDE 20 MEQ TABLET 40 MEQ PO (10:29)
[2021-04-13] MEDS: SODIUM CHLORIDE 0.9% IV 250 ML 30 ML IV CONT (11:30)
--- NOTE | 2021-04-13 13:10 | PC.NURSE ---
On 04/13/21, the student, Yanet Gagnon, provided care and completed [facility] documentation on this patient. I have reviewed the student's documentation and agree with the findings.
--- NOTE | 2021-04-13 14:57 | PM.IMPN ---
Progress Note: A&P Assessment and Plan (1) SBP (spontaneous bacterial peritonitis): Code(s): K65.2 - Spontaneous bacterial peritonitis Status: Acute Assessment and Plan: Ascites fluid with growth of coag-negative Staphylococcus and Acinetobacter. Appreciate Gastroenterology Infectious Disease consultation. Continue with IV Rocephin Received IV albumin (2) E coli bacteremia: Code(s): R78.81 - Bacteremia; B96.20 - Unspecified Escherichia coli [E. coli] as the cause of diseases classified elsewhere Status: Acute Assessment and Plan: 2/2 blood cultures with growth of E coli susceptible to ceftriaxone Continue with IV ceftriaxone Appreciate infectious disease consultation and recommendations regarding when to discontinue IV Rocephin. (3) Pleural effusion on right: Code(s): J90 - Pleural effusion, not elsewhere classified Status: Acute Assessment and Plan: Complained of [facility]. Imaging with large right pleural effusion. Appreciate pulmonology consultation Planning for diagnostic and therapeutic thoracentesis. Proceed once INR is <1.5. See below. (4) Cirrhosis of liver with ascites: Qualifiers: Hepatic cirrhosis type: unspecified hepatic cirrhosis Qualified Code(s): K74.60 - Unspecified cirrhosis of liver; R18.8 - Other ascites Code(s): K74.60 - Unspecified cirrhosis of liver; R18.8 - Other ascites Status: Acute Assessment and Plan: Stage IV liver cirrhosis. 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 Underwent paracentesis on 04/06 which yielded 700 cc cloudy fluid. Ascitic fluid cultures as above. Propranolol discontinued due to SBP Appreciate GI consultation (5) Coagulopathy: Code(s): D68.9 - Coagulation defect, unspecified Status: Acute Assessment and Plan: Secondary to cirrhosis. INR is 2.0 today. Goal INR is 1.5 for thoracentesis Received 2 units FFP today. INR decreased to 1.7 Transfuse additional unit and recheck INR. Plan for thoracentesis tomorrow (6) Abnormal finding on diagnostic imaging of left kidney: Code(s): R93.422 - Abnormal radiologic findings on diagnostic imaging of left kidney Status: Acute Assessment and Plan: CT showed focal 1.7 cm area of diminished attenuation in the posterior mid left kidney. Follow-up renal ultrasound poorly visualized but suggestive of renal cyst. Discussed results with radiologist Dr. Joshi. Will plan for follow up MRI pre and postcontrast once overall improvement of other medical issues. May be leo as an outpatient. Will need urology referral. (7) Hypertension: Code(s): I10 - Essential (primary) hypertension Status: Acute Assessment and Plan: Blood pressure reviewed and has been reasonable. Improved today with last BP 144/88 Propranolol discontinued as above. Monitor BP trends. Consider addition of antihypertensive agent as needed. (8) Chronic hepatitis C: Code(s): B18.2 - Chronic viral hepatitis C Status: Acute Assessment and Plan: Continue Epclusa brought from home. (9) Thickening of wall of gallbladder: Code(s): K82.8 - Other specified diseases of gallbladder Status: Acute Assessment and Plan: CT abdomen/pelvis showed gallbladder wall thickening which may be due to acute or chronic cholecystitis vs ascites. No signs or symptoms to suggest cholecystitis. He denies RUQ pain and tolerating his diet. No evidence of acute cholecystitis on RUQ US. Likely related to ascites. Subjective Date/time seen: 04/13/21 14:57 Interval history: Date of service: 04/13/2021 Cornelio Pedroza is a 55-year-old male with a history of cirrhosis secondary to alcohol abuse, chronic hepatitis-C, anxiety, hypertension, DIAN, and tobacco abuse who is seen in follow-up for spontaneous bacterial peritonitis and pleural effusion. His biggest complaint today is sh
[2021-04-13 15:18] LABS: INR 1.7; Prothrombin Time 19.9 Seconds (11.1-14.7)
[2021-04-13] MEDS: SODIUM CHLORIDE 0.9% IV 100 ML 30 ML (16:43)
[2021-04-13] MEDS: GABAPENTIN 400 MG CAPSULE 1200 MG PO (20:55)
[2021-04-14] VITALS (16 sets, daily range): BP systolic 122–164; BP diastolic 65–90; PULSE 51–84; RESP 12–18; TEMP 36–36.8; O2SAT 93–98
[2021-04-14 00:57] LABS: INR 1.8; Prothrombin Time 20.6 Seconds (11.1-14.7)
[2021-04-14] MEDS: oxyCODONE HCL (*CRX) 5 MG TAB IR PO ×3 (05:36→21:24)
[2021-04-14 05:46] LABS: Hematocrit 35.2 % (42.0-52.0); Immature Platelet Fraction Pct 6.3 % (0.9-11.2); Mean Corpuscular HGB Conc 34.1 g/dl (32-36); Mean Corpuscular Hemoglobin 34.9 pg (26-34); Mean Corpuscular Volume 102.3 fl (80-100); Mean Platelet Volume 10.9 fl (7.4-10.4); Platelet Count Result 95 k/mm3 (150-375); Red Blood Count 3.44 M/mm3 (4.6-6.20); Red Cell Distribution Width 13.8 % (11.5-14.5)
[2021-04-14 05:52] LABS: INR 1.9; Prothrombin Time 21.2 Seconds (11.1-14.7)
[2021-04-14 05:55] LABS: Anion Gap 11 mmol/L (8-16); Blood Urea Nitrogen 13 mg/dL (9-20); Calcium 8.6 mg/dL (8.4-10.2); Carbon Dioxide 27 mmol/L (22-30); Chloride 99 mmol/L (98-107); Estimated CRCL calculation 177 ml/min; Estimated Glomerular Filt Rate > 60; Glucose 97 mg/dL (65-110); Potassium 3.3 mmol/L (3.4-5.0); Sodium 137 mmol/L (137-145)
[2021-04-14] MEDS: SODIUM CHLORIDE 0.9% IV 250 ML 30 ML IV CONT ×2 (08:00→09:00)
[2021-04-14] MEDS: FUROSEMIDE 40 MG TABLET PO (08:23)
[2021-04-14] MEDS: SPIRONOLACTONE 50 MG TABLET 100 MG PO (08:23)
--- NOTE | 2021-04-14 08:42 | PM.PNPUL ---
Progress Note: A&P Assessment and Plan (1) Pleural effusion on right: Code(s): J90 - Pleural effusion, not elsewhere classified Status: Acute Assessment and Plan: 04/12 Patient with worsening dyspnea on exertion for 1 month, dry cough and intermittent wheezing noticed on this admission. Patient has a large right pleural effusion and I agree with right thoracentesis with complete drainage and sending pleural chemistries, cell count, cultures and cytology for diagnostic purposes. Currently the patient is on room air with saturations 94%. Serum bicarb on presentation was 22. Patient does have minimal apical predominant paraseptal emphysema on a CT scan of the chest with a tobacco history and he may have COPD. Patient states that the albuterol and ipratropium nebulizers made him worse and caused him to have violent coughing. At this time will discontinue these nebulizers. I feel no need to start systemic or inhaled corticosteroids at this time. Will re-evaluate patient after thoracentesis to see if his wheezing and symptoms persist. Will reassess pleural effusion after thoracentesis as patient may require repeat procedure an attempt to drain the majority of this fluid. 04/13 patient unchanged clinically and attempting to correct INR so that he can undergo a thoracentesis. Spoke with ultrasound and INR goal less than 1.5. received vitamin K IV and p.o. and to receive FFP per hospitalist team. chest x-ray remains with moderate sized right pleural effusion. 04/14 Patient states his shortness of breath at rest and with ambulation is unchanged. 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 Room air saturations 96%. INR after vitamin K supplementation and 2 units FFP is 1.9. scheduled to receive 1/3 unit of FFP in an attempt to decrease the INR to less than 1.5 so as to be able to perform thoracentesis. In addition, recommend aggressive diuresis and attempt to decrease the right pleural effusion. Cumulative input through hospitalization is 5.9 L positive if accurate. Will follow with you. Subjective Date/time seen: 04/14/21 08:42 Interval history: 55-year-old male with a history of cirrhosis from hepatitis C and alcohol use who presented to the hospital on 04/06 with a 1 month history of progressively worsening shortness of breath and dyspnea on exertion, dry cough and intermittent wheezing. Patient had acute worsening of his vomiting and abdominal pain and was admitted to the hospital and had a paracentesis with 700 mL of fluid removed andfound to have E coli bacteremia and ascites fluid has grown out coag-negative Staph coccus and gram-negative bacilli to be identified. Patient has been treated with ceftriaxone and says that the vomiting and abdominal pain are improved. CT scan of the abdomen showed that he had a moderate size right pleural effusion on 04/06/2021 and a chest x-ray on 12/30/2020 showed a right pleural effusion where as a CT angiogram of the chest on 10/20/2020 showed no right pleural effusion. Patient had a CT chest abdomen pelvis on 04/10 and the moderate size right pleural effusion is now a large right-sided pleural effusion. patient states that over the last month he has developed increasing shortness of breath which occurs mainly with any activity but also at rest. Prior to 1 month ago he had no shortness of breath. Patient states that he has no pedal edema no history of asthma or COPD and no chest pain. He also had a dry cough without any phlegm production or hemoptysis. With the patient was feeling well he said he could walk 2 blocks but would have to stop because of back pain not because of shortness of breath. Patient has a tobacco history from age 14-9 months ago at age 54-,1/2 pack per day for total of 20 pack years. Patient smoked marijuana starting 1 year ago about 3 times a month and his last u
--- NOTE | 2021-04-14 11:59 | WPDGIPROGNO ---
Progress Note: A&P Assessment and Plan (1) SBP (spontaneous bacterial peritonitis): Code(s): K65.2 - Spontaneous bacterial peritonitis Status: Acute Assessment and Plan: s/p iv albumin and currently on antibiotics, doing better we discontinued beta-blockers in setting of SBP (2) E coli bacteremia: Code(s): R78.81 - Bacteremia; B96.20 - Unspecified Escherichia coli [E. 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, pulmonary on board inr elevated due to liver disease but got vit K and now FFP, then will get thoracentesis later today continue with current dose of lasix/aldactone and 2g na diet (4) Chronic hepatitis C with cirrhosis: Code(s): B18.2 - Chronic viral hepatitis C; K74.60 - Unspecified cirrhosis of liver Status: Acute Assessment and Plan: he started outpatient treatment with epclusa- will need to complete his MONE score has been ~ 19 (5) Sepsis: Qualifiers: Sepsis acute organ dysfunction status: unspecified Sepsis type: sepsis due to unspecified organism Qualified Code(s): A41.9 - Sepsis, unspecified organism Code(s): A41.9 - Sepsis, unspecified organism Status: Acute (6) Elevated liver enzymes: Code(s): R74.8 - Abnormal levels of other serum enzymes Status: Acute (7) Coagulopathy: Code(s): D68.9 - Coagulation defect, unspecified Status: Acute Assessment and Plan: from cirrhosis, inr ~ 2 s/p vit K and FFP Subjective Date/time seen: 04/14/21 11:59 Interval history: overall better but still with shortness of breath, now getting another FFP and plan is to get thoracentesis. Review of Systems Review of Systems: All systems reviewed & are unremarkable except as noted in HPI and below Exam Const: General: comfortable and no acute distress HENMT: General nose exam: Normal nares present Eyes: General: appearance normal, both eyes and all related structures Neck: Neck: supple Resp: Auscultation: no crackles and diminished lung sounds on the right Cardio: Rate: regular rate GI: GI Palp: Yes Soft to palpation, No Tenderness to palpation present (GI) and Yes Guarding due to palpation present (GI) Skin: General skin exam: normal color Neuro: Speech: normal speech Motor exam (neuro): Normal motor muscle tone present throughout Extrem: General: normal to inspection Psych: Mental Status: mental status grossly normal Objective Data Vital Signs Vital Signs: Vital Signs - 24 hr 04/13/21 12:00 04/13/21 12:59 04/13/21 13:59 Temperature 97.4 F L 98.0 F 98.3 F Pulse Rate 64 58 L 52 L Respiratory Rate 16 16 14 Blood Pressure 128/80 147/82 H 140/82 Pulse Oximetry 96 100 96 04/13/21 14:11 04/13/21 16:00 04/13/21 18:12 Temperature 98.1 F 98.6 F 98.0 F Pulse Rate 53 L 52 L 50 L Respiratory Rate 14 18 16 Blood Pressure 150/85 H 158/83 H 148/82 H Pulse Oximetry 96 96 94 04/13/21 18:30 04/13/21 19:30 04/13/21 20:00 Temperature 97.8 F 97.3 F L 97.4 F L Pulse Rate 56 L 56 L 56 L Respiratory Rate 14 17 16 Blood Pressure 160/90 H 133/72 133/73 Pulse Oximetry 99 96 95 04/13/21 20:55 04/14/21 00:00 04/14/21 04:00 Temperature 97.4 F L 97.9 F 97.4 F L Pulse Rate 56 L 55 L 63 Respiratory Rate 16 16 17 Blood Pressure 135/73 124/65 122/75 Pulse Oximetry 95 93 96 04/14/21 08:00 04/14/21 08:07 04/14/21 08:22 Temperature 97.9 F 97.8 F 97.7 F Pulse Rate 54 L 52 L 84 Respiratory Rate 18 16 16 Blood Pressure 129/80 127/80 129/79 Pulse Oximetry 96 95 94 04/14/21 08:30 04/14/21 09:22 04/14/21 09:59 Temperature 96.8 F L 98.3 F Pulse Rate 51 L 57 L Respiratory Rate 14 16 Blood Pressure 138/79 136/82 Pulse Oximetry 94 96 97 04/14/21 10:13
--- NOTE | 2021-04-14 12:05 | PC.NURSE ---
To Radiology per stretcher for ultrasound guided thoracentesis
--- NOTE | 2021-04-14 12:06 | WPDCDIQUERY2 ---
CDI Query Clarification Request -Sepsis on problem list since admission. -04/13 progress note- sepsis removed from problem list Please clarify if sepsis has been ruled in or ruled out.
--- NOTE | 2021-04-14 12:55 | PC.NURSE ---
Return from Radiology per stretcher 1200ml of fluid removed. Ban aid to Right mid back CDI VSS 179/88 97.9 60 18 97%RA.
[2021-04-14 14:13] LABS: Appearance Pleural Fluid Cloudy (Clear); Pleural fluid source Pleural fluid
[2021-04-14 14:14] LABS: Color Pleural Fluid Other (Colorless)
[2021-04-14 14:15] LABS: Lymphocytes Pleural Fluid 63 %; Macrophages Pleural Fluid 4 %; Mesothelial Cells Pleural Flui 27 %; Monocytes Pleural Fluid 1 %; Neutrophils Pleural Fluid 5 % (0-25)
[2021-04-14] MEDS: POTASSIUM CHLORIDE 20 MEQ TABLET PO (14:38)
--- NOTE | 2021-04-14 16:21 | PM.IMPN ---
Progress Note: A&P Assessment and Plan (1) SBP (spontaneous bacterial peritonitis): Code(s): K65.2 - Spontaneous bacterial peritonitis Status: Acute Assessment and Plan: Ascites fluid with growth of coag-negative Staphylococcus and Acinetobacter. Susceptibility testing not performed on either organism Appreciate Gastroenterology and Infectious Disease consultation. Continue with IV Rocephin. Appreciate Infectious Disease input regarding Spoke with [facility] and have requested susceptibility testing be performed on ascitic fluid Received IV albumin (2) E coli bacteremia: Code(s): R78.81 - Bacteremia; B96.20 - Unspecified Escherichia coli [E. coli] as the cause of diseases classified elsewhere Status: Acute Assessment and Plan: 2/2 blood cultures with growth of E coli susceptible to ceftriaxone Continue with IV ceftriaxone Appreciate infectious disease consultation and recommendations regarding duration of IV Rocephin. (3) Pleural effusion on right: Code(s): J90 - Pleural effusion, not elsewhere classified Status: Acute Assessment and Plan: Complained of [facility]. Imaging showed large right pleural effusion. Appreciate pulmonology consultation Underwent thoracentesis today; chemistries, cultures, and cytology pending (4) Cirrhosis of liver with ascites: Qualifiers: Hepatic cirrhosis type: unspecified hepatic cirrhosis Qualified Code(s): K74.60 - Unspecified cirrhosis of liver; R18.8 - Other ascites Code(s): K74.60 - Unspecified cirrhosis of liver; R18.8 - Other ascites Status: Acute Assessment and Plan: Stage IV liver cirrhosis. 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 Underwent paracentesis on 04/06 which yielded 700 cc cloudy fluid. Ascitic fluid cultures as above. Propranolol discontinued due to SBP Continue with Lasix and Spironolactone Appreciate GI consultation (5) Coagulopathy: Code(s): D68.9 - Coagulation defect, unspecified Status: Acute Assessment and Plan: Secondary to cirrhosis. INR had been elevated and he received FFP to decrease INR prior to thoracentesis. (6) Abnormal finding on diagnostic imaging of left kidney: Code(s): R93.422 - Abnormal radiologic findings on diagnostic imaging of left kidney Status: Acute Assessment and Plan: CT showed focal 1.7 cm area of diminished attenuation in the posterior mid left kidney. Follow-up renal ultrasound poorly visualized but suggestive of renal cyst. Discussed results with radiologist Dr. Joshi. Will plan for follow up MRI pre and postcontrast once overall improvement of other medical issues. May be done as an outpatient. Will need urology referral. (7) Hypertension: Code(s): I10 - Essential (primary) hypertension Status: Acute Assessment and Plan: Blood pressure reviewed and has been reasonable. Last BP 127/83 Propranolol discontinued as above. Monitor BP trends. Consider addition of antihypertensive agent as needed. (8) Chronic hepatitis C: Code(s): B18.2 - Chronic viral hepatitis C Status: Acute Assessment and Plan: Continue Epclusa brought from home. (9) Thickening of wall of gallbladder: Code(s): K82.8 - Other specified diseases of gallbladder Status: Acute Assessment and Plan: CT abdomen/pelvis showed gallbladder wall thickening which may be due to acute or chronic cholecystitis vs ascites. No signs or symptoms to suggest cholecystitis. He denies RUQ pain and tolerating his diet. No evidence of acute cholecystitis on RUQ US. Likely related to ascites. Subjective Date/time seen: 04/14/21 16:21 Interval history: Date of service: 04/13/2021 Cornelio Pedroza is a 55-year-old male with a history of cirrhosis secondary to alcohol abuse, chronic hepatitis-C, anxiety, hypertension, DIAN, and tobacco abuse who is seen in follow-up
[2021-04-14] MEDS: GABAPENTIN 400 MG CAPSULE 1200 MG PO (21:25)
[2021-04-15] VITALS: BP 114/54; PULSE 80; RESP 20; TEMP 36.1; O2SAT 94
[2021-04-15 04:00] VITALS: BP 108/70; PULSE 72; RESP 20; TEMP 36.1; O2SAT 96
[2021-04-15] MEDS: oxyCODONE HCL (*CRX) 5 MG TAB IR PO (05:15)
[2021-04-15 05:55] LABS: Hematocrit 35.4 % (42.0-52.0); Hemoglobin 12.1 g/dL (14.0-18.0); Immature Platelet Fraction Pct 6.9 % (0.9-11.2); Mean Corpuscular HGB Conc 34.2 g/dl (32-36); Mean Corpuscular Hemoglobin 34.9 pg (26-34); Mean Platelet Volume 11.6 fl (7.4-10.4); Platelet Count Result 96 k/mm3 (150-375); Red Blood Count 3.47 M/mm3 (4.6-6.20); Red Cell Distribution Width 13.6 % (11.5-14.5); White Blood Count 6.3 K/mm3 (4.5-10.0)
[2021-04-15 06:02] LABS: Alanine Aminotransferase 25 U/L (4-50); Albumin Level 3.6 g/dL (3.5-5.1); Alkaline Phosphatase 99 U/L (38-126); Anion Gap 13 mmol/L (8-16); Aspartate Amino Transferase 49 U/L (17-59); Bilirubin,Total 4.1 mg/dL (0.2-1.3); Blood Urea Nitrogen 13 mg/dL (9-20); Calcium 8.8 mg/dL (8.4-10.2); Carbon Dioxide 26 mmol/L (22-30); Chloride 98 mmol/L (98-107); Estimated CRCL calculation 177 ml/min; Estimated Glomerular Filt Rate > 60; Glucose 113 mg/dL (65-110); Potassium 3.3 mmol/L (3.4-5.0); Sodium 137 mmol/L (137-145)
[2021-04-15] MEDS: SPIRONOLACTONE 50 MG TABLET 100 MG PO (08:17)
[2021-04-15] MEDS: FUROSEMIDE 40 MG TABLET PO (08:17)
[2021-04-15] MEDS: POTASSIUM CHLORIDE 20 MEQ TABLET 40 MEQ PO (09:14)
--- NOTE | 2021-04-15 10:32 | PM.DS ---
DS: Admitting Diagnosis Admitting Diagnosis Abdominal distension DS: Discharge Diagnosis Discharge Diagnosis (1) SBP (spontaneous bacterial peritonitis): Code(s): K65.2 - Spontaneous bacterial peritonitis Status: Acute Assessment and Plan: Ascites fluid with growth of coag-negative Staphylococcus and Acinetobacter. Susceptibility testing not performed on either organism Appreciate Gastroenterology and Infectious Disease consultation. Completed 7 day course of 2 g IV Rocephin daily. Continue with cefdinir 300 mg b.i.d. for 7 days per Infectious Disease recommendations. Spoke with [facility] and requested susceptibility testing be performed on ascitic fluid, results pending. Received IV albumin. Propranolol discontinued in light of SBP (2) E coli bacteremia: Code(s): R78.81 - Bacteremia; B96.20 - Unspecified Escherichia coli [E. coli] as the cause of diseases classified elsewhere Status: Acute Assessment and Plan: 2/2 blood cultures with growth of E coli susceptible to ceftriaxone As above, completed 7 day course of 2 g IV Rocephin. Continue p.o. cefdinir. Appreciate infectious disease consultation and recommendations (3) Cirrhosis of liver with ascites: Qualifiers: Hepatic cirrhosis type: unspecified hepatic cirrhosis Qualified Code(s): K74.60 - Unspecified cirrhosis of liver; R18.8 - Other ascites Code(s): K74.60 - Unspecified cirrhosis of liver; R18.8 - Other ascites Status: Acute Assessment and Plan: Stage IV liver cirrhosis. 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. Underwent paracentesis on 04/06 which yielded 700 cc cloudy fluid. Ascitic fluid cultures as above. Propranolol discontinued due to SBP Initiated on Lasix and Spironolactone which were continued on discharge. Appreciate GI consultation. He would like to transfer care to Dr. Roa. Information provided for follow up. (4) Pleural effusion on right: Code(s): J90 - Pleural effusion, not elsewhere classified Status: Acute Assessment and Plan: Complained of [facility]. Imaging showed large right pleural effusion. Appreciate pulmonology consultation Underwent thoracentesis on 04/14/2021 yielding 1200 mL clear [place] colored fluid. Fluid consistent with transudative effusion. Mo malignant cells in pleural fluid on cytology report. Cultures and AFB pending, will monitor. Likely due to cirrhosis. (5) Coagulopathy: Code(s): D68.9 - Coagulation defect, unspecified Status: Acute Assessment and Plan: Secondary to cirrhosis. INR had been elevated and he received FFP to decrease INR prior to thoracentesis. (6) Abnormal finding on diagnostic imaging of left kidney: Code(s): R93.422 - Abnormal radiologic findings on diagnostic imaging of left kidney Status: Acute Assessment and Plan: CT showed focal 1.7 cm area of diminished attenuation in the posterior mid left kidney. Follow-up renal ultrasound poorly visualized but suggestive of renal cyst. Discussed results with radiologist Dr. Joshi. He will need to obtain MRI pre and postcontrast as an outpatient. He is aware of these findings and has an appointment with his PCP in 1 week. Urology referral based on MRI results. (7) Hypertension: Code(s): I10 - Essential (primary) hypertension Status: Acute Assessment and Plan: Blood pressure reviewed and was reasonably controlled. Propranolol discontinued as above. (8) Chronic hepatitis C: Code(s): B18.2 - Chronic viral hepatitis C Status: Acute Assessment and Plan: Continue Epclusa (9) Thickening of wall of gallbladder: Code(s): K82.8 - Other specified diseases of gallbladder Status: Acute Assessment and Plan: CT abdomen/pelvis showed gallbladder wall thickening which may be due to acute or chronic cholecystitis vs ascites. No signs or symptoms to suggest cholec
--- NOTE | 2021-04-15 10:42 | PM.PNPUL ---
Progress Note: A&P Assessment and Plan (1) Pleural effusion on right: Code(s): J90 - Pleural effusion, not elsewhere classified Status: Acute Assessment and Plan: 04/12 Patient with worsening dyspnea on exertion for 1 month, dry cough and intermittent wheezing noticed on this admission. Patient has a large right pleural effusion and I agree with right thoracentesis with complete drainage and sending pleural chemistries, cell count, cultures and cytology for diagnostic purposes. Currently the patient is on room air with saturations 94%. Serum bicarb on presentation was 22. Patient does have minimal apical predominant paraseptal emphysema on a CT scan of the chest with a tobacco history and he may have COPD. Patient states that the albuterol and ipratropium nebulizers made him worse and caused him to have violent coughing. At this time will discontinue these nebulizers. I feel no need to start systemic or inhaled corticosteroids at this time. Will re-evaluate patient after thoracentesis to see if his wheezing and symptoms persist. Will reassess pleural effusion after thoracentesis as patient may require repeat procedure an attempt to drain the majority of this fluid. 04/13 patient unchanged clinically and attempting to correct INR so that he can undergo a thoracentesis. Spoke with ultrasound and INR goal less than 1.5. received vitamin K IV and p.o. and to receive FFP per hospitalist team. chest x-ray remains with moderate sized right pleural effusion. 04/14 Patient states his shortness of breath at rest and with ambulation is unchanged. 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 Room air saturations 96%. INR after vitamin K supplementation and 2 units FFP is 1.9. scheduled to receive 1/3 unit of FFP in an attempt to decrease the INR to less than 1.5 so as to be able to perform thoracentesis. In addition, recommend aggressive diuresis and attempt to decrease the right pleural effusion. Cumulative input through hospitalization is 5.9 L positive if accurate. 04/15 Patient is now back to normal after his thoracentesis of the right pleural effusion with 1200 mL of fluid removed. Repeat chest x-ray this morning shows a small pleural effusion without reaccumulation. There is no evidence of an empyema. Pleural fluid chemistries in cytology is pending at this time. These can be followed as an outpatient by his primary physician. Patient can be discharged home from a pulmonary perspective and no need for such pulmonary specific follow-up unless his physicians feel the need for this. In that case please refer her him to the Pulmonary Clinic. Will follow with you. Subjective Date/time seen: 04/15/21 10:42 Interval history: 55-year-old male with a history of cirrhosis from hepatitis C and alcohol use who presented to the hospital on 04/06 with a 1 month history of progressively worsening shortness of breath and dyspnea on exertion, dry cough and intermittent wheezing. Patient had acute worsening of his vomiting and abdominal pain and was admitted to the hospital and had a paracentesis with 700 mL of fluid removed andfound to have E coli bacteremia and ascites fluid has grown out coag-negative Staph coccus and gram-negative bacilli to be identified. Patient has been treated with ceftriaxone and says that the vomiting and abdominal pain are improved. CT scan of the abdomen showed that he had a moderate size right pleural effusion on 04/06/2021 and a chest x-ray on 12/30/2020 showed a right pleural effusion where as a CT angiogram of the chest on 10/20/2020 showed no right pleural effusion. Patient had a CT chest abdomen pelvis on 04/10 and the moderate size right pleural effusion is now a large right-sided pleural effusion. patient states that over the last month he has developed increasing shortness of breath which occurs mainl
[2021-04-15] MEDS: CEFDINIR 300 MG CAPSULE PO (11:09)
[2021-04-17 21:59] LABS: Glucose Pleural Fluid 103 mg/dL; LDH Pleural Fluid 124 U/L; Total Protein Pleural Fluid <3.0 g/dL
[2021-04-19 00:33] LABS: Albumin Pleural Fluid 1.9 g/dL
== END 2021-04-15 12:35 | disposition home or self-care (01) | DRG 871 ==
LOC: ANHED 20:08 → ANH2MED 04-07 06:22
PROVIDERS: Emergency Medicine; Internal Medicine Gastroenterology; Nurse Practitioner; Nurse Practitioner Adult Health; Admitting Provider Internal Medicine; Emergency Provider Emergency Medicine; PCP Family Medicine; Visit Provider Physician Assistant
DX: A41.51 Sepsis due to Escherichia coli [E. coli] (principal); K65.2 Spontaneous bacterial peritonitis; K76.6 Portal hypertension; D68.9 Coagulation defect, unspecified; J91.8 Pleural effusion in other conditions classified elsewhere; K70.31 Alcoholic cirrhosis of liver with ascites; B18.2 Chronic viral hepatitis C; F10.21 Alcohol dependence, in remission; K31.89 Other diseases of stomach and duodenum; K52.9 Noninfective gastroenteritis and colitis, unspecified; K21.00 Gastro-esophageal reflux disease with esophagitis, without bleeding; I10 Essential (primary) hypertension; G47.33 Obstructive sleep apnea (adult) (pediatric); F17.210 Nicotine dependence, cigarettes, uncomplicated; E78.5 Hyperlipidemia, unspecified; K82.8 Other specified diseases of gallbladder; R93.422 Abnormal radiologic findings on diagnostic imaging of left kidney; R74.8 Abnormal levels of other serum enzymes; F41.9 Anxiety disorder, unspecified; Z79.899 Other long term (current) drug therapy; Z98.1 Arthrodesis status
CPT/HCPCS: 32555; 36415; 36430; 49083; 71045; 71260; 74177; 76705; 76775; 80048; 80053; 80076; 80307; 81001; 82042; 82150; 82248; 82274; 82465; 82945; 82947; 83036; 83615; 83690; 83735; 83880; 84100; 84155; 84157; 84439; 84443; 84478; 84484; 85025; 85027; 85055; 85060; 85610; 85730; 86900; 86901; 87015; 87040; 87070; 87075; 87077; 87102; 87116; 87186; 87205; 87206; 87324; 88104; 88108; 88305; 89051; 93005; 93306; 94640; 96374; 96375; 99285; A9270; J0696; J1940; J2270; J2405; J2765; J3430; J7030; J7050; P9017; P9047; Q9967

== ENCOUNTER 2021-08-03 10:35 | Outpatient (CLI) | payer MEDICARE, MEDICAID, SELFPAY ==
[2021-08-03 11:25] LABS: Hematocrit 35.7 % (42.0-52.0); Hemoglobin 12.5 g/dL (14.0-18.0); Immature Platelet Fraction Pct 5.3 % (0.9-11.2); Mean Corpuscular Hemoglobin 33.9 pg (26-34); Mean Corpuscular Volume 96.7 fl (80-100); Platelet Count Result 83 k/mm3 (150-375); Red Blood Count 3.69 M/mm3 (4.6-6.20); Red Cell Distribution Width 13.4 % (11.5-14.5); White Blood Count 6.2 K/mm3 (4.5-10.0)
[2021-08-03 11:32] LABS: INR 2.1; Prothrombin Time 22.7 Seconds (11.1-14.7)
[2021-08-03 11:43] LABS: Alanine Aminotransferase 23 U/L (4-50); Albumin Level 3.6 g/dL (3.5-5.1); Alkaline Phosphatase 239 U/L (38-126); Anion Gap 5 mmol/L (8-16); Aspartate Amino Transferase 71 U/L (17-59); Bilirubin,Total 4.9 mg/dL (0.2-1.3); Blood Urea Nitrogen 12 mg/dL (9-20); Calcium 8.7 mg/dL (8.4-10.2); Carbon Dioxide 28 mmol/L (22-30); Chloride 100 mmol/L (98-107); Estimated Glomerular Filt Rate > 60; Glucose 115 mg/dL (65-110); Potassium 4.2 mmol/L (3.4-5.0); Sodium 133 mmol/L (137-145)
[2021-08-07 17:27] LABS: Hepatitis C RNA, Quant PCR <15 IU/mL
== END 2021-08-03 10:36 | disposition home or self-care (01) ==
PROVIDERS: PCP Internal Medicine Gastroenterology; Visit Provider Internal Medicine Gastroenterology
DX: B18.2 Chronic viral hepatitis C (principal); K74.60 Unspecified cirrhosis of liver; Z72.0 Tobacco use
CPT/HCPCS: 36415; 80053; 85027; 85055; 85610; 87522

== ENCOUNTER 2021-08-10 10:24 | Emergency (ER) | payer MEDICARE, MEDICAID, SELFPAY ==
[2021-08-10] VITALS (7 sets, daily range): BP systolic 151–170; BP diastolic 92–103; PULSE 79–90; RESP 14–20; TEMP 36.7; O2SAT 96–100
--- NOTE | ~2021-08-10 | US_ITS ---
EXAMINATION: US paracentesis abd w/image DATE: 08/10/2021 15:03 INDICATION: Ascites. TECHNIQUE: The procedure and its risks and benefits were discussed with the patient. Potential risks discussed included bleeding and infection. The skin was prepped and draped in sterile fashion. 1% lid ocaine was used for local anesthesia. Under ultrasound guidance, a 5 Fr catheter with trochar was adv anced into the ascites in the right lower quadrant. Fluid was aspirated into vacuum bottles. The cath eter was removed, and a dressing was applied. There were no immediate complications. FINDINGS: Ultrasound images demonstrate ascites and the catheter within the fluid. IMPRESSION: 1. Successful ultrasound-guided paracentesis yielding 3450 mL of clear yellow fluid. Reviewed, dictated and finalized at location A. 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
--- NOTE | ~2021-08-10 | CT_ITS ---
EXAMINATION: CT abdomen pelvis wo con DATE: 08/10/2021 11:58 INDICATION: Abdominal distention. Cirrhosis of the liver. TECHNIQUE: Computed tomography (CT) of the abdomen and pelvis was performed without intravenous contr ast. Automated exposure control and iterative reconstruction technique were employed. The dose-length product was 1337.45 mGy-cm. COMPARISON: CT abdomen and pelvis 04/10/2021 FINDINGS: The visualized portions of the lung bases demonstrate mild atelectasis. There is a trace ri ght pleural effusion. The heart size is normal. No pericardial effusion. Paraesophageal varices are n oted. The liver demonstrate a nodular surface contour, consistent with cirrhosis. There is mild splen omegaly. The gallbladder is normal in size and contains gallstones. The pancreas and adrenal glands a re normal. Right kidney is normal. There is a 3 mm stone in left kidney. There is prominent fat in th e inguinal canals that may be hernias. There are no dilated loops of bowel. The appendix is normal. T here is a large volume of ascites. There is a small volume of ascites and a hiatal hernia. There is m ild abdominal lymphadenopathy, likely reactive. There is thoracolumbar levoscoliosis and severe spond ylosis. There are changes of posterior fusion procedure from T10 to the sacrum and iliac bones. There are lucencies around the T10 screws, consistent with loosening. IMPRESSION: 1. Cirrhosis of the liver with portal venous hypertension. 2. Large volume of ascites. Reviewed, dictated and finalized at location B. 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
--- NOTE | 2021-08-10 11:34 | ED.ABDPAIN ---
HPI - Abdominal Pain General Chief Complaint: Abdominal Pain Stated Complaint: abd distention Time Seen by Provider: 08/10/21 11:08 Source: patient Mode of arrival: ambulatory Limitations: no limitations History of Present Illness HPI narrative: Patient is a 56-year-old male complaining of increasing abdominal distention and abdominal discomfort started this past week. Patient states that he has history of liver cirrhosis, states that last time he had a paracentesis done was 2 months ago. Patient also states that due to his increasing abdominal distention it is causing him to be short of breath. Patient denies any chest pain, nausea, vomiting, fever or chills. Related Data Home Medications Medication Instructions Recorded Confirmed gabapentin 1,200 mg PO HS 04/07/21 06/04/21 oxycodone 5 mg PO TID PRN 04/07/21 06/04/21 Allergies Allergy/AdvReac Type Severity Reaction Status Date / Time No Known Allergies Allergy Verified 08/05/21 08:49 Review of Systems Review of Systems: All systems reviewed & are unremarkable except as noted in HPI and below Constitutional: Constitutional: Denies body ache(s), Denies chills, Denies excessive sweating, Denies fatigue, Denies fever(s), Denies headache(s), Denies lethargy, Denies malaise, Denies weakness and Denies weight loss Eyes: Eyes: Denies blurry vision, Denies change in vision and Denies loss of vision ENT: Denies dizziness, Denies ear discharge, Denies headache(s), Denies lip swelling, Denies epistaxis, Denies nasal congestion, Denies neck pain, Denies throat swelling and Denies tongue swelling Cardiovascular: Cardiovascular: Denies chest pain, Denies chest pain at rest, Denies chest pain with activity, Denies diaphoresis, Denies rapid heart rate, Denies edema, Denies irregular heart rhythm, Denies lightheadedness, Denies palpitations, Denies dyspnea and Denies dyspnea on exertion Respiratory: Respiratory: Denies chest congestion, Denies cough, Denies hemoptysis, Denies dyspnea and Denies dyspnea on exertion Gastrointestinal: Gastrointestinal: Denies abdominal pain, Denies melena, Denies hematochezia, Denies diarrhea, Denies nausea, Denies vomiting and Denies hematemesis Musculoskeletal: Musculoskeletal: Denies abnormal gait, Denies deformity, Denies joint swelling, Denies limited range of motion, Denies neck pain and Denies numbness Neurologic: Denies Abnormal speech present, Denies abnormal gait, Denies confusion, Denies dizziness, Denies headache(s), Denies focal weakness, Denies loss of vision, Denies numbness, Denies Other visual disturbances, Denies Sensory deficit (Neuro) and Denies weakness Psychiatric: Psychiatric: Denies confusion, Denies depression, Denies auditory hallucinations, Denies homicidal ideation and Denies suicidal ideation Endocrine: Endocrine: Denies cold intolerance, Denies excessive sweating, Denies fatigue, Denies heat intolerance and Denies palpitations Hematologic/Lymphatic: Hematologic/Lymphatic: Denies easy bleeding and Denies easy bruising Allergic/Immunologic: Allergic/Immunologic: Denies lip swelling, Denies throat swelling and Denies tongue swelling PMFSH Past Medical History Medical History Alcohol abuse Anxiety Arthritis Chronic hepatitis C Chronic hepatitis C with cirrhosis Cirrhosis of liver Coagulopathy Dyslipidemia E coli bacteremia Elevated liver enzymes Erosive esophagitis Hypertension Nicotine dependence Normal echocardiogram October 2020: EF 60-65%, mild left atrial enlargement, mild minimally elevated E/e', mild mitral valve regurgitation Obstructive sleep apnea Portal hypertensive gastropathy Surgical History Surgical History History of cardiac catheterization History of elbow surgery Right elbow surgery as a teenager to remove a bony cyst History of epidermal inclusion cyst excision Right tragus. History of fusi
[2021-08-10 11:56] LABS: Basophils Absolute Auto 0.1 K/mm3 (0.0-0.1); Basophils Percent Auto 1.2 % (0.2-1.2); Eosinophils Absolute Auto 0.2 K/mm3 (0-0.3); Eosinophils Percent Auto 2.2 % (0-4.4); Hematocrit 34.9 % (42.0-52.0); Hemoglobin 12.1 g/dL (14.0-18.0); Immature Granulocyte Absolute 0.02 K/mm3 (0.00-0.031); Immature Granulocyte Percent A 0.3 % (0-0.5); Immature Platelet Fraction Pct 4.2 % (0.9-11.2); Lymphocytes Absolute Auto 2.06 K/mm3 (0.9-3.2); Lymphocytes Percent Auto 26.6 % (18.3-44.2); Mean Corpuscular HGB Conc 34.7 g/dl (32-36); Mean Corpuscular Hemoglobin 33.8 pg (26-34); Mean Corpuscular Volume 97.5 fl (80-100); Mean Platelet Volume 10.8 fl (7.4-10.4); Monocytes Absolute Auto 0.9 K/mm3 (0.1-0.6); Neutrophils Absolute Auto 4.5 K/mm3 (1.3-6.7); Neutrophils Percent Auto 57.7 % (45.5-73.1); Platelet Count Result 87 k/mm3 (150-375); Red Blood Count 3.58 M/mm3 (4.6-6.20); Red Cell Distribution Width 13.9 % (11.5-14.5); White Blood Count 7.7 K/mm3 (4.5-10.0)
[2021-08-10 12:03] LABS: Prothrombin Time 22.1 Seconds (11.1-14.7)
[2021-08-10 12:04] LABS: Partial Thromboplastin Time 34.9 SECONDS (22.3-36.8)
[2021-08-10 12:08] LABS: Alanine Aminotransferase 27 U/L (4-50); Albumin Level 3.4 g/dL (3.5-5.1); Alkaline Phosphatase 204 U/L (38-126); Anion Gap 2 mmol/L (8-16); Aspartate Amino Transferase 81 U/L (17-59); Bilirubin,Total 8.3 mg/dL (0.2-1.3); Blood Urea Nitrogen 12 mg/dL (9-20); Calcium 8.6 mg/dL (8.4-10.2); Carbon Dioxide 24 mmol/L (22-30); Chloride 105 mmol/L (98-107); Estimated CRCL calculation 218 ml/min; Estimated Glomerular Filt Rate > 60; Glucose 120 mg/dL (65-110); Potassium 3.8 mmol/L (3.4-5.0); Sodium 131 mmol/L (137-145)
[2021-08-10] MEDS: MORPHINE SULFATE (*CRX) 2 MG/ML INJ IV PUSH (12:53)
== END 2021-08-10 16:57 | disposition home or self-care (01) ==
PROVIDERS: Emergency Provider Emergency Medicine
DX: K70.31 Alcoholic cirrhosis of liver with ascites (principal); F41.9 Anxiety disorder, unspecified; E78.5 Hyperlipidemia, unspecified; I10 Essential (primary) hypertension; G47.33 Obstructive sleep apnea (adult) (pediatric); F17.210 Nicotine dependence, cigarettes, uncomplicated; Z98.890 Other specified postprocedural states; Z79.899 Other long term (current) drug therapy
CPT/HCPCS: 36415; 49083; 74176; 80053; 85025; 85055; 85610; 85730; 96374; 99284; J2270

== ENCOUNTER 2022-11-01 08:13 | Emergency (ER) | payer MEDICARE, MEDICAID, SELFPAY ==
--- NOTE | ~2022-11-01 | XR_ITS ---
EXAMINATION: XR lumbar spine 2-3V DATE: 11/01/2022 09:23 INDICATION: Low back pain TECHNIQUE: Anteroposterior and lateral views of the lumbar spine, and cone-down lateral view of the l umbosacral junction were obtained. COMPARISON: 03/31/2018 FINDINGS: There are changes of interval posterior fusion from T10 through the sacrum. The right sided connecting michael is fractured between L1 and L2. No acute osseous fracture is identified. There is sev ere loss of intervertebral disc space height at L2-3, L4-5 and L5-S1. There appear to be orphaned scr ew fragments in the S1 vertebral body. IMPRESSION: 1. Interval posterior fusion from T10 to the sacrum with fractured right-sided connecting michael at betw een L1 and L2. 2. Severe lumbar spondylosis. Reviewed, dictated and finalized at location L. IMPRESSION: 1. Interval posterior fusion from T10 to the sacrum with fractured right-sided connecting michael at between L1 and L2. 2. Severe lumbar spondylosis.
[2022-11-01 08:17] VITALS: BP 144/75; PULSE 93; RESP 20; TEMP 36.6; O2SAT 100
--- NOTE | 2022-11-01 08:27 | PC.NURSE ---
States he took his prescribed hydrocodone at 0530 this morning with little relief. 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 States the pain feels like when he had his back surgeries last time. States he starting to have some numbness down his right leg which is new.
--- NOTE | 2022-11-01 08:32 | ED.BACK ---
HPI - Back Pain/Injury General Chief Complaint: Back Pain/Injury Stated Complaint: back pain Time Seen by Provider: 11/01/22 08:23 Source: patient and RN notes reviewed Mode of arrival: ambulatory Limitations: no limitations History of Present Illness HPI Narrative: This is a 57 year old male with history of chronic back pain and back surgery who presents for evaluation of back pain. Patient states that he had back surgery 5 years ago at [facility]. Yesterday, he states he heard a crack when he was chopping wood. He reports having severe low back pain that radiates down his right leg. He takes oxycodone every 6 hours. He has taken 2 oxycodone 10 mg this morning without any relief of his pain. HE denies leg weakness, urinary retention, saddle anesthesia. Related Data Home Medications Medication Instructions Recorded Confirmed oxycodone 10 mg tablet 1 mg PO DIRECTED 11/01/22 11/01/22 valsartan 160 1 tablet PO DIRECTED 11/01/22 11/01/22 mg-hydrochlorothiazide 25 mg tablet Allergies Allergy/AdvReac Type Severity Reaction Status Date / Time No Known Allergies Allergy Verified 11/01/22 08:23 Review of Systems Review of Systems: All systems reviewed & are unremarkable except as noted in HPI and below Constitutional: Constitutional: Denies chills, Denies fatigue and Denies fever(s) Cardiovascular: Cardiovascular: Denies syncope, Denies rapid heart rate, Denies irregular heart rhythm, Denies leg edema and Denies dyspnea Respiratory: Respiratory: Denies chest congestion, Denies hemoptysis, Denies excessive phlegm production and Denies dyspnea Gastrointestinal: Gastrointestinal: Denies abdominal pain, Denies hematochezia, Denies diarrhea and Denies vomiting Genitourinary: Genitourinary: Denies hematuria, Denies dysuria, Denies penile discharge and Denies testicular pain Musculoskeletal: Musculoskeletal: Reports back pain, Denies joint swelling, Denies loss of height and Denies muscle weakness Neurologic: Denies syncope, Denies focal weakness and Denies weakness PMFSH Past Medical History Medical History Alcohol abuse Anxiety Arthritis Chronic hepatitis C Chronic hepatitis C with cirrhosis Cirrhosis of liver Coagulopathy Dyslipidemia E coli bacteremia Elevated liver enzymes Erosive esophagitis Hypertension Nicotine dependence Normal echocardiogram October 2020: EF 60-65%, mild left atrial enlargement, mild minimally elevated E/e', mild mitral valve regurgitation Obstructive sleep apnea Portal hypertensive gastropathy Surgical History Surgical History History of cardiac catheterization History of elbow surgery Right elbow surgery as a teenager to remove a bony cyst History of epidermal inclusion cyst excision Right tragus. History of fusion of cervical spine Following C4-C5 fracture followed a year later by replacement of hardware due to loosening of screws, followed later by fusion from the cervical spine through the lumbar spine History of lumbar fusion History of surgery on wrist ORIF wrist fracture with hardware. Family History Family History Father Lung cancer Hypertension Mother Kidney disease Breast cancer Hypertension Parkinson disease Social History Social History Social History: Surrogate decision maker: Charis Zepeda () Code status: Full code. Smoking packs per day: 0 Smoking cigarettes per day: 0.0 Years smoked: 40 Smoking pack-years: 0.00 Smoking status: Former smoker Tobacco type: cigarettes Second hand tobacco smoke exposure: Yes Smoking end date: 07/14/21 Additional smoking assessment comments: He used to smoke 0.5 PPD. He now smokes 1 pack Q 2 weeks. Alcohol intake: former Drinks per week: 0 Alcohol use details: He us
[2022-11-01] MEDS: HYDROmorphone HCL INJ (*CRX) 1 MG/ML SYR IV PUSH ×2 (08:47→11:18)
[2022-11-01] MEDS: ONDANSETRON INJ 4 MG/2 ML VIAL IV PUSH (08:50)
[2022-11-01 12:30] VITALS: BP 121/75; PULSE 67; RESP 18; O2SAT 99
== END 2022-11-01 12:33 | disposition home or self-care (01) ==
PROVIDERS: Emergency Provider General Practice
DX: T84.296A Other mechanical complication of internal fixation device of vertebrae, initial encounter (principal); M54.50 Low back pain, unspecified; I10 Essential (primary) hypertension; B18.2 Chronic viral hepatitis C; E78.5 Hyperlipidemia, unspecified; G47.33 Obstructive sleep apnea (adult) (pediatric); K74.60 Unspecified cirrhosis of liver; K76.6 Portal hypertension; K31.89 Other diseases of stomach and duodenum; Z98.1 Arthrodesis status; Z87.891 Personal history of nicotine dependence; F12.90 Cannabis use, unspecified, uncomplicated; Z79.891 Long term (current) use of opiate analgesic; Y83.8 Other surgical procedures as the cause of abnormal reaction of the patient, or of later complication, without mention of misadventure at the time of the procedure
CPT/HCPCS: 72100; 96374; 96375; 96376; 99284; J1170; J2405

== ENCOUNTER 2024-02-04 15:22 | Emergency (ER) | payer MEDICARE, MEDICAID, SELFPAY ==
[2024-02-04] VITALS (11 sets, daily range): BP systolic 95–137; BP diastolic 49–90; PULSE 45–73; RESP 9–20; O2SAT 94–99
[2024-02-04] MEDS: ONDANSETRON INJ 4 MG/2 ML VIAL IV PUSH (15:36)
[2024-02-04] MEDS: MORPHINE SULFATE (*CRX) 4 MG/ML INJ IV PUSH (15:36)
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
[2024-02-04] MEDS: WATER FOR IRRIGATION, STERILE 500 ML BOTTLE (16:21)
[2024-02-04] MEDS: SODIUM CHLORIDE 0.9% IV 1,000 ML 999 ML IV CONT (16:21)
[2024-02-04 16:25] LABS: Basophils Absolute Auto 0.1 K/mm3 (0.0-0.1); Basophils Percent Auto 1.2 % (0.2-1.2); Eosinophils Absolute Auto 0.2 K/mm3 (0-0.3); Eosinophils Percent Auto 2.9 % (0-4.4); Hematocrit 37.2 % (42.0-52.0); Hemoglobin 13.3 g/dL (14.0-18.0); Immature Granulocyte Absolute 0.01 K/mm3 (0.00-0.031); Immature Granulocyte Percent A 0.2 % (0-0.5); Immature Platelet Fraction Pct 5.3 % (0.9-11.2); Lymphocytes Absolute Auto 2.02 K/mm3 (0.9-3.2); Lymphocytes Percent Auto 34.5 % (18.3-44.2); Mean Corpuscular HGB Conc 35.8 g/dl (32-36); Mean Corpuscular Hemoglobin 33.5 pg (26-34); Mean Corpuscular Volume 93.7 fl (80-100); Mean Platelet Volume 11.3 fl (7.4-10.4); Monocytes Absolute Auto 0.7 K/mm3 (0.1-0.6); Monocytes Percent Auto 11.8 % (2.6-8.5); Neutrophils Absolute Auto 2.9 K/mm3 (1.3-6.7); Neutrophils Percent Auto 49.4 % (45.5-73.1); Platelet Count Result 88 k/mm3 (150-375); Red Blood Count 3.97 M/mm3 (4.6-6.20); Red Cell Distribution Width 12.8 % (11.5-14.5); White Blood Count 5.9 K/mm3 (4.5-10.0)
[2024-02-04 16:32] LABS: Lactic Acid Reflex 1.7 mmol/L (0.7-2.0)
[2024-02-04 16:34] LABS: Alanine Aminotransferase 28 U/L (6-50); Albumin Level 4.2 g/dL (3.5-5.1); Alkaline Phosphatase 111 U/L (38-126); Anion Gap 6 mmol/L (4-12); Aspartate Amino Transferase 48 U/L (17-59); Bilirubin,Total 1.8 mg/dL (0.2-1.3); Blood Urea Nitrogen 29 mg/dL (9-20); Calcium 9.1 mg/dL (8.4-10.2); Carbon Dioxide 27 mmol/L (22-30); Chloride 105 mmol/L (98-107); Estimated CRCL calculation 94 ml/min; Estimated Glomerular Filt Rate > 60; Glucose 134 mg/dL (65-110); Potassium 3.9 mmol/L (3.4-5.0); Sodium 138 mmol/L (137-145)
[2024-02-04] MEDS: fentaNYL CITRATE INJ (*CRX) 100 MCG/2 ML VIAL 25 MCG IV PUSH (17:19)
[2024-02-04] MEDS: SILVER SULFADIAZINE 1% CR 50 GM JAR (*BKC) 1 APPLIC TOPICAL (17:34)
== END 2024-02-04 18:09 | disposition home or self-care (01) ==
PROVIDERS: Emergency Provider Student in an Organized Health Care Education/Training Program
DX: T24.232A Burn of second degree of left lower leg, initial encounter (principal); T24.231A Burn of second degree of right lower leg, initial encounter; T31.0 Burns involving less than 10% of body surface; E78.5 Hyperlipidemia, unspecified; B19.20 Unspecified viral hepatitis C without hepatic coma; K74.60 Unspecified cirrhosis of liver; K76.6 Portal hypertension; K31.89 Other diseases of stomach and duodenum; G47.33 Obstructive sleep apnea (adult) (pediatric); M19.90 Unspecified osteoarthritis, unspecified site; Z98.1 Arthrodesis status; Z87.891 Personal history of nicotine dependence; W40.8XXA Explosion of other specified explosive materials, initial encounter
CPT/HCPCS: 16025; 36415; 80053; 83605; 85025; 85055; 96361; 96374; 96375; 99284; A9270; J2270; J2405; J3010; J7030

== ENCOUNTER 2024-06-04 18:30 | Emergency (ER) | payer MEDICARE, MEDICAID, SELFPAY ==
--- NOTE | ~2024-06-04 | CT_ITS ---
EXAMINATION: CT abdomen pelvis w con DATE: 06/04/2024 21:43 INDICATION: Abdominal pain. Cirrhosis. TECHNIQUE: Computed tomography (CT) of the abdomen and pelvis was performed with 100 mL Omnipaque-350 intravenous contrast. Automated exposure control and iterative reconstruction technique were employe d. The dose-length product was 935.22 mGy-cm. COMPARISON: 04/06/2021 FINDINGS: The visualized mid to lower lungs are clear. Heart size is normal. Atherosclerotic coronary artery ca lcification and aortic valve calcific lesion. No pericardial effusion. Bilateral gynecomastia. Large gastroesophageal varices consistent with portal venous hypertension secondary to the nodular cirrhosi s of the liver. There are additional left splenorenal collaterals. A few calcified gallstones the dep endent aspect of the otherwise normal-appearing gallbladder. Splenomegaly measuring 14.7 cm in crania l caudal length. Pancreas, bilateral adrenal glands and right kidney are normal. 1.2 cm left renal [address]. Couple nonobstructing left renal stones the largest measuring 3 mm. Bowels including appendix are normal with no obstruction. Bladder is normal. Prostatomegaly measuring 4.1 x 3.5 cm. Small bilatera l fat-containing inguinal hernias. No free intraperitoneal gas or fluid. No pathologically enlarged a bdominal or pelvic lymphadenopathy. Severe thoracic and lumbar spondylosis. Instrumented posterior sp inal fusion extending from extending from T10 through S1 with bilateral vertical michael and pedicle scre ws as well as bilateral iliac screws. there is also anterior spinal fusion at T9-T10, T12-L1, L2-L3 a nd L4-L5. IMPRESSION: 1. Cirrhosis with stigmata of secondary portal venous hypertension including splenic megaly with prom inent gastroesophageal and left splenorenal collaterals. 2. Cholelithiasis. 3. Nonobstructing left nephrolithiasis. Reviewed, dictated and finalized at location A. IMPRESSION: 1. Cirrhosis with stigmata of secondary portal venous hypertension including sp lenic megaly with prominent gastroesophageal and left splenorenal collaterals. 2. Cholelithiasis. 3. Nonobstructing left nephrolithiasis.
--- NOTE | ~2024-06-04 | XR_ITS ---
CHEST RADIOGRAPH CLINICAL HISTORY: SOB . COMPARISON: 04/15/2021 TECHNIQUE: Single portable view of the chest. FINDINGS The cardiomediastinal silhouette is unremarkable. Coarse interstitial lung markings are redemonstrated, likely chronic. The remainder of the lungs are clear. Visualized osseous structures and soft tissues are unremarkable. IMPRESSION: No focal infiltrate or effusion. Reviewed, dictated and finalized at location A.
[2024-06-04 18:40] VITALS: BP 155/74; PULSE 72; RESP 18; TEMP 36.8; O2SAT 100
--- NOTE | 2024-06-04 19:27 | ED.GENADULT ---
HPI - General Adult General Chief complaint: Unspecified Stated complaint: abd swelling Time Seen by Provider: 06/04/24 19:03 History of Present Illness HPI narrative: Patient is a 59-year-old male who presents to the emergency department this evening complaining of shortness of breath. Patient admits that he does have a history of cirrhosis and was doing really for the past 2 years by staying away from alcohol but recently lost his brother and started drinking again and feels as though he is developing a site 80s again and needs to be drained. Patient states that approximately 2 years ago he presented to the emergency department with similar symptoms and had a paracentesis done. Patient states that he has not had to have his abdomen drained since as he has been doing really good by staying away from alcohol. He is currently denying any abdominal pain but feels as though his abdomen is slightly more distended than usual and is complaining of some shortness of breath which is the same symptoms he had 2 years ago when he needed to have fluid drained from his abdomen. Patient denies any chest pain, any nausea, vomiting, dysuria, hematuria, constipation, diarrhea, melena, hematochezia, fevers or chills. No additional symptoms or concerns at this time. Related Data Home Medications Medication Instructions Recorded Confirmed oxycodone 10 mg tablet 1 mg PO DIRECTED 11/01/22 11/01/22 valsartan 160 1 tablet PO DIRECTED 11/01/22 11/01/22 mg-hydrochlorothiazide 25 mg tablet Allergies Allergy/AdvReac Type Severity Reaction Status Date / Time No Known Allergies Allergy Verified 02/04/24 15:23 Review of Systems Review of Systems: All systems are reviewed and are negative unless stated otherwise in the HPI. [facility] Past Medical History Medical History Alcohol abuse Anxiety Arthritis Back pain of thoracolumbar region Chronic hepatitis C with cirrhosis Cirrhosis of liver Coagulopathy Dyslipidemia E coli bacteremia Elevated liver enzymes Erosive esophagitis Hypertension Nicotine dependence Normal echocardiogram October 2020: EF 60-65%, mild left atrial enlargement, mild minimally elevated E/e', mild mitral valve regurgitation Obstructive sleep apnea Portal hypertensive gastropathy Surgical History Surgical History History of cardiac catheterization History of elbow surgery Right elbow surgery as a teenager to remove a bony cyst History of epidermal inclusion cyst excision Right tragus. History of fusion of cervical spine Following C4-C5 fracture followed a year later by replacement of hardware due to loosening of screws, followed later by fusion from the cervical spine through the lumbar spine History of lumbar fusion History of surgery on wrist ORIF wrist fracture with hardware. Family History Family History Father Lung cancer Hypertension Mother Kidney disease Breast cancer Hypertension Parkinson disease Social History Social History Social History: Surrogate decision maker: Charis Katelyn () Code status: Full code. Smoking packs per day: 0 Smoking cigarettes per day: 0.0 Years smoked: 40 Smoking pack-years: 0.00 Smoking status: Former smoker Tobacco type: cigarettes Second hand tobacco smoke exposure: Yes Smoking end date: 07/14/21 Additional smoking assessment comments: He used to smoke 0.5 PPD. He now smokes 1 pack Q 2 weeks. Alcohol intake: former Drinks per week: 0 Alcohol use details: He used to drink vodka daily but has not done so in several months. Substance use: current Substance use type: marijuana Other substance usage details: Occasional marijuana use. Additional living arrangements comments: He his March 02
[2024-06-04 20:10] LABS: Basophils Absolute Auto 0.1 K/mm3 (0.0-0.1); Basophils Percent Auto 1.4 % (0.2-1.2); Eosinophils Absolute Auto 0.2 K/mm3 (0-0.3); Eosinophils Percent Auto 4.1 % (0-4.4); Hematocrit 36.4 % (42.0-52.0); Immature Platelet Fraction Pct 3.8 % (0.9-11.2); Lymphocytes Absolute Auto 1.32 K/mm3 (0.9-3.2); Lymphocytes Percent Auto 31.7 % (18.3-44.2); Mean Corpuscular HGB Conc 35.7 g/dl (32-36); Mean Corpuscular Volume 95.3 fl (80-100); Mean Platelet Volume 10.1 fl (7.4-10.4); Monocytes Absolute Auto 0.5 K/mm3 (0.1-0.6); Monocytes Percent Auto 12.5 % (2.6-8.5); Neutrophils Absolute Auto 2.1 K/mm3 (1.3-6.7); Neutrophils Percent Auto 50.3 % (45.5-73.1); Platelet Count Result 81 k/mm3 (150-375); Red Blood Count 3.82 M/mm3 (4.6-6.20); Red Cell Distribution Width 13.4 % (11.5-14.5); White Blood Count 4.2 K/mm3 (4.5-10.0)
[2024-06-04 20:19] LABS: Ammonia 50 umol/L (9-30); Lactic Acid Reflex 1.5 mmol/L (0.7-2.0); Lipase 144 U/L (23-300); Magnesium 1.7 mg/dL (1.6-2.3)
[2024-06-04 20:20] LABS: Alanine Aminotransferase 34 U/L (6-50); Albumin Level 3.9 g/dL (3.5-5.1); Alkaline Phosphatase 134 U/L (38-126); Anion Gap 10 mmol/L (4-12); Aspartate Amino Transferase 66 U/L (17-59); Bilirubin,Total 3.8 mg/dL (0.2-1.3); Blood Urea Nitrogen 14 mg/dL (9-20); Calcium 9.1 mg/dL (8.4-10.2); Carbon Dioxide 26 mmol/L (22-30); Chloride 104 mmol/L (98-107); Estimated CRCL calculation 131 ml/min; Estimated Glomerular Filt Rate > 60; Glucose 106 mg/dL (65-110); INR 1.2; Potassium 3.2 mmol/L (3.4-5.0); Prothrombin Time 15.9 Seconds (11.1-14.7); Sodium 140 mmol/L (137-145)
[2024-06-04 20:21] LABS: Partial Thromboplastin Time 29.7 Seconds (22.3-36.8)
[2024-06-04 20:41] LABS: Hypochromasia 1+; Platelet Estimate Decreased (Adequate)
[2024-06-04 20:42] LABS: Schistocytes None Seen
[2024-06-04 20:44] LABS: Influenza A QL RT-PCR Negative (Negative); Influenza B QL RT-PCR Negative (Negative); SARS-CoV-2 RNA PCR Negative (Negative)
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
[2024-06-04] MEDS: MORPHINE SULFATE (*CRX) 4 MG/ML INJ IV PUSH (21:26)
[2024-06-04] MEDS: ONDANSETRON INJ 4 MG/2 ML VIAL IV PUSH (21:26)
[2024-06-04 21:28] VITALS: BP 175/88; PULSE 65; RESP 16; O2SAT 100
[2024-06-04 21:40] LABS: Add Urine Microscopic? YES; Appearance Urine Clear (Clear); Bilirubin Urine Negative (Negative); Blood Urine Negative (Negative); Color Urine Dark Yellow (Yellow); Glucose Urine UA Negative (Negative); Ketones Urine Trace mg/dL (Negative); Leukocyte Esterase Ur Negative LEU/UL (Negative); Nitrate Urine Negative (Negative); Protein Urine Negative (Negative)
[2024-06-04] MEDS: LACTULOSE 20 GM/30 ML UDC PO (22:55)
[2024-06-04] MEDS: POTASSIUM CHLORIDE 20 MEQ ER TABLET 40 MEQ PO (22:55)
[2024-06-04 23:04] VITALS: BP 160/85; PULSE 62; RESP 16; TEMP 36.6; O2SAT 97
== END 2024-06-04 23:07 | disposition home or self-care (01) ==
PROVIDERS: Emergency Provider Emergency Medicine
DX: R06.02 Shortness of breath (principal); K74.60 Unspecified cirrhosis of liver; F10.10 Alcohol abuse, uncomplicated; Z20.822 Contact with and (suspected) exposure to COVID-19; B19.20 Unspecified viral hepatitis C without hepatic coma; I10 Essential (primary) hypertension; E78.5 Hyperlipidemia, unspecified; G47.33 Obstructive sleep apnea (adult) (pediatric); Z98.1 Arthrodesis status; Z87.891 Personal history of nicotine dependence; K80.20 Calculus of gallbladder without cholecystitis without obstruction; N20.0 Calculus of kidney; K76.6 Portal hypertension
CPT/HCPCS: 36415; 71045; 74177; 80053; 81001; 82140; 83605; 83690; 83735; 85025; 85055; 85610; 85730; 87636; 96374; 96375; 99284; A9270; J2270; J2405; Q9967